=== PATIENT | female | born 1950 | race Hispanic/Latino ===

== ENCOUNTER 2018-11-15 23:05 | Emergency (ER) | payer SELFPAY ==
[2018-11-16 00:29] LABS: Absolute Lymphocytes (CBC) 1.8 K/uL (0.7-4.9); Basophils % 0.5 % (0-1.3); Hematocrit 35.5 % (36.0-45.0); Lymphocytes % 24.2 % (15.3-44.8); MPV 11.2 fL (7.6-11.3); RBC Red Blood Cell Count 3.83 M/uL (3.86-4.86)
[2018-11-16 00:30] LABS: Protime INR 1.14
[2018-11-16 00:42] LABS: ALT/SGPT 23 U/L (12-78); AST/SGOT 21 U/L (15-37); Albumin 3.1 g/dL (3.4-5.0); Alkaline Phosphatase 71 U/L (45-117); BUN Blood Urea Nitrogen 36 mg/dL (7-18); Bicarbonate 21 mmol/L (21-32); Bilirubin Direct < 0.1 mg/dL (0-0.2); Bilirubin Total 0.5 mg/dL (0.2-1.0); Glucose Level 89 mg/dL (74-106); Magnesium 1.7 mg/dL (1.8-2.4); NT PRO-BNP 151 pg/mL (<125); Potassium 3.9 mmol/L (3.5-5.1); Protein, Total 6.5 g/dL (6.4-8.2); Sodium Level 138 mmol/L (136-145); Troponin (Emerg Dept Use Only) < 0.02 ng/mL (0.0-0.045)
--- NOTE | 2018-11-16 03:25 | ER ---
Nurse's Notes [facility] Name: Mell Leo Age: 68 yrs Sex: Female : 1950 Arrival Date: 11/15/2018 Time: 23:08 Bed 19 Private MD: Diagnosis: Chest pain, unspecified Presentation: 11/15 23:21 Presenting complaint: Patient states: she has been having chest pain all weekend but it bb is getting worse the pain is constant radiates to her back and currently is 7/10. Pt denies SOB, nausea, fever, or congestion. Transition of care: patient was not received from another setting of care. Onset of symptoms was November 13, 2018. Risk Assessment: Do you want to hurt yourself or someone else? Patient reports no desire to harm self or others. Initial Sepsis Screen: Does the patient meet any 2 criteria? No. Patient's initial sepsis screen is negative. Does the patient have a suspected source of infection? No. Patient's initial sepsis screen is negative. Care prior to arrival: None. 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 - Social history:: Smoking status: unknown. - Ebola Screening: : No symptoms or risks identified at this time. Screenin:13 Abuse screen: Denies threats or abuse. Denies injuries from another. Nutritional cc3 screening: No deficits noted. Tuberculosis screening: No symptoms or risk factors identified. Fall Risk Ambulatory Aid- None/Bed Rest/Nurse Assist (0 pts). Gait- Normal/Bed Rest/Wheelchair (0 pts) Mental Status- Oriented to own ability (0 pts). Assessment: 23:13 General: Appears in no apparent distress. uncomfortable, Behavior is calm, cooperative, cc3 appropriate for age. Pain: Complains of pain in left side of chest Pain radiates to back Pain currently is 7 out of 10 on a pain scale. Quality of pain is described as tightness Pain began since a few days ago. Neuro: Level of Consciousness is awake, alert, obeys commands, Oriented to person, place, time, situation, Appropriate for age. Cardiovascular: Reports chest pain, since a few days ago Heart tones S1 S2 present Capillary refill < 3 seconds in bilateral fingers Patient's skin is warm and dry. Rhythm is sinus rhythm. Respiratory: Airway is patent Respiratory effort is even, unlabored, Respiratory pattern is regular, symmetrical. GI: Abdomen is round non-distended, Bowel sounds present X 4 quads. : No signs and/or symptoms were reported regarding the genitourinary system. EENT: No signs and/or symptoms were reported regarding the EENT system. Derm: Skin is intact, is healthy with good turgor, Skin is pink, warm \T\ dry. normal, Skin temperature is warm. Musculoskeletal: Circulation, motion, and sensation intact. Range of motion: intact in all extremities, Swelling present in right ankle and left ankle. 11/16 00:25 Reassessment: Patient appears in no apparent distress at this time. Patient and/or cc3 family updated on plan of care and expected duration. Pain level reassessed. Patient is alert, oriented x 3, equal unlabored respirations, skin warm/dry/pink. 01:18 Reassessment: Patient appears in no apparent distress at this time. Patient and/or cc3 family updated on plan of care and expected duration. Pain level reassessed. Patient is alert, oriented x 3, equal unlabored respirations, skin warm/dry/pink. 02:15 Reassessment: Patient appears in no apparent distress at this time. Patient and/or cc3 family updated on plan of care and expected duration. Pain level reassessed. Patient is alert, oriented x 3, equal unlabored respirations, skin warm/dry/pink. Repeat Troponin taken and sent to laboratory. 03:45 Reassessment: Patient appears in no apparent distress at this time. Patient and/or cc3 family updated on plan of care and expected duration. Pain level reassessed. Patient is alert, oriented x 3, equal unlabored respirations, skin warm/dry/pink. Dr. Torres discharged the patient home, no prescription given. IV cannula removed and patient left ER vitally stable by wheelchair escorted by me and the patient's son. No valuables left in the patient's room. Patient denies pain at this time. Patient states feeling better. Patient states symptoms have improved. Vital Signs: 11/15 23:27 BP 163 / 79; Pulse 90; Resp 16 S; Temp 98.2(O); Pulse Ox 98% on R/A; Weight 92.08 kg bb (R); Height 5 ft. 5 in. (165.10 cm) (R); Pain 7/10; 11/16 00:15 BP 119 / 56; Pulse 86; Resp 20 S; Pulse Ox 99% on R/A; cc3 01:49 BP 131 / 57; Pulse 85; Resp 18 S; Pulse Ox 99% on R/A; cc3 02:40 BP 111 / 59; Pulse 83; Resp 18 S; Pulse Ox 99% on R/A; cc3 03:45 BP 101 / 56; Pulse 85; Resp 17 S; Pulse Ox 99% on R/A; Pain 0/10; cc3 11/15 23:27 Body Mass Index 33.78 (92.08 kg, 165.10 cm) bb ED Course: 11/15 23:08 Patient arrived in ED. cf2 23:13 Raysa Hernández is Primary Nurse. cc3 23:13 Patient has correct armband on for positive identification. Placed in gown. Call light cc3 in reach. Side rails up X 1. monitoring and evaluation advisor on. Pulse ox on. NIBP on. 23:13 Patient maintains SpO2 saturation greater than 95% on room air. cc3 23:16 Richard Torres MD is Attending Physician. gs 23:24 Triage completed. bb 23:27 Arm band placed on Patient placed in an exam room, on a stretcher, on groundwater monitoring technician, bb on pulse oximetry. EKG completed in triage. Results shown to . 23:50 Inserted saline lock: 20 gauge in right antecubital area, using aseptic technique. cc3 Blood collected. 11/16 00:16 XRAY Chest (1 view) In Process Unspecified. EDMS 03:22 Leo Jacobs MD is Referral Physician. gs 03:45 No provider procedures requiring assistance completed. IV discontinued, intact, cc3 bleeding controlled, No redness/swelling at site. Pressure dressing applied. Administered Medications: No medications were administered Outcome: 03:24 Discharge ordered by . naye 03:45 Discharged to home via wheelchair, with family. cc3 03:45 Condition: stable 03:45 Discharge instructions given to patient, family, Instructed on discharge instructions, follow up and referral plans. Demonstrated understanding of instructions, follow-up care. 04:10 Patient left the ED. cc3 Signatures: Dispatcher [employer] EDMS Alison Smith RN RN Richard Aviles MD MD Raysa Hernández cc3 Rip Victoria cf2 Corrections: (The following items were deleted from the chart) 04:03 11/15 23:13 Derm: Skin is intact, is healthy with good turgor, Skin is pink, warm \T\ cc3 dry. normal, Skin temperature is warm cc3 11/16 04:03 11/15 23:13 Musculoskeletal: Circulation, motion, and sensation intact. Range of cc3 motion: intact in all extremities, cc3
--- NOTE | 2018-11-16 03:25 | EDPHYS ---
Physician Documentation [facility] Name: Mell Leo Age: 68 yrs Sex: Female : 1950 Arrival Date: 11/15/2018 Time: 23:08 Bed 19 Private MD: ED Physician Richard Torres HPI: 11/16 03:19 This 68 yrs old Female presents to ER via Ambulatory with complaints of Chest gs Pain > 30 y/o, Chest Tightness. 03:19 The patient or guardian reports chest pain that is located primarily in the anterior gs chest wall. Onset: 4 day(s) ago. The pain does not radiate. Associated signs and symptoms: Pertinent negatives: abdominal pain, diaphoresis. The chest pain is described as a heaviness. Duration: The patient or guardian reports a single episode, that is still ongoing, and unchanged. Modifying factors: The symptoms are alleviated by nothing. the symptoms are aggravated by nothing. Severity of pain: At its worst the pain was moderate in the emergency department the pain is unchanged. The patient has experienced similar episodes in the past, a few times. 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 - Social history:: Smoking status: unknown. - Ebola Screening: : No symptoms or risks identified at this time. ROS: 11/16 03:19 All other systems are negative. gs Exam: 03:19 Head/Face: Normocephalic, atraumatic. Eyes: Pupils equal round and reactive to light, gs extra-ocular motions intact. Lids and lashes normal. Conjunctiva and sclera are non-icteric and not injected. Cornea within normal limits. Periorbital areas with no swelling, redness, or edema. ENT: Nares patent. No nasal discharge, no septal abnormalities noted. Tympanic membranes are normal and external auditory canals are clear. Oropharynx with no redness, swelling, or masses, exudates, or evidence of obstruction, uvula midline. Mucous membranes moist. Neck: Trachea midline, no thyromegaly or masses palpated, and no cervical lymphadenopathy. Supple, full range of motion without nuchal rigidity, or vertebral point tenderness. No Meningismus. Chest/axilla: Normal chest wall appearance and motion. Nontender with no deformity. No lesions are appreciated. Cardiovascular: Regular rate and rhythm with a normal S1 and S2. No gallops, murmurs, or rubs. Normal PMI, no JVD. No pulse deficits. Respiratory: Lungs have equal breath sounds bilaterally, clear to auscultation and percussion. No rales, rhonchi or wheezes noted. No increased work of breathing, no retractions or nasal flaring. Abdomen/GI: Soft, non-tender, with normal bowel sounds. No distension or tympany. No guarding or rebound. No evidence of tenderness throughout. Back: No spinal tenderness. No costovertebral tenderness. Full range of motion. Skin: Warm, dry with normal turgor. Normal color with no rashes, no lesions, and no evidence of cellulitis. Neuro: Awake and alert, GCS 15, oriented to person, place, time, and situation. Cranial nerves II-XII grossly intact. Motor strength 5/5 in all extremities. Sensory grossly intact. Cerebellar exam normal. Normal gait. 03:19 Constitutional: The patient appears alert, awake. 03:19 ECG was reviewed by the Attending Physician. 03:19 Musculoskeletal/extremity: Circulation is intact in all extremities. Edema, 2+ to the left ankle and right ankle is noted, Sensation intact. Vital Signs: 11/15 23:27 BP 163 / 79; Pulse 90; Resp 16 S; Temp 98.2(O); Pulse Ox 98% on R/A; Weight 92.08 kg bb (R); Height 5 ft. 5 in. (165.10 cm) (R); Pain 7/10; 11/16 00:15 BP 119 / 56; Pulse 86; Resp 20 S; Pulse Ox 99% on R/A; cc3 01:49 BP 131 / 57; Pulse 85; Resp 18 S; Pulse Ox 99% on R/A; cc3 02:40 BP 111 / 59; Pulse 83; Resp 18 S; Pulse Ox 99% on R/A; cc3 03:45 BP 101 / 56; Pulse 85; Resp 17 S; Pulse Ox 99% on R/A; Pain 0/10; cc3 11/15 23:27 Body Mass Index 33.78 (92.08 kg, 165.10 cm) bb MDM: 11/15 23:42 Patient medically screened. 11/16 03:19 Differential diagnosis: acute myocardial infarction, anxiety, chest wall pain. Data reviewed: vital signs, nurses notes, old medical records, lab test result(s), EKG, radiologic studies, and as a result, I will discharge patient. Counseling: I had a detailed discussion with the patient and/or guardian regarding: the historical points, exam findings, and any diagnostic results supporting the discharge/admit diagnosis, the need for outpatient follow up. 11/15 23:42 Order name: Basic Metabolic Panel 11/15 23:42 Order name: CBC with Diff; Complete Time: 02:03 11/15 23:42 Order name: LFT's 11/15 23:42 Order name: Magnesium; Complete Time: 02:03 11/15 23:42 Order name: NT PRO-BNP; Complete Time: 02:03 11/15 23:42 Order name: PT-INR; Complete Time: 02:03 11/15 23:42 Order name: Troponin (emerg Dept Use Only); Complete Time: 02:03 11/15 23:42 Order name: XRAY Chest (1 view) 11/15 23:42 Order name: EKG; Complete Time: 23:42 11/15 23:42 Order name: Cardiac monitoring; Complete Time: 23:55 11/15 23:42 Order name: EKG - Nurse/Tech; Complete Time: 23:55 11/15 23:42 Order name: Basic Metabolic Panel; Complete Time: 02:03 EDID 11/15 23:42 Order name: Liver (Hepatic) Function; Complete Time: 02:03 EDID 11/16 02:13 Order name: Troponin (emerg Dept Use Only); Complete Time: 03:19 11/15 23:42 Order name: IV Saline Lock; Complete Time: 00:04 11/15 23:42 Order name: Labs collected and sent; Complete Time: 00:04 11/15 23:42 Order name: O2 Per Protocol; Complete Time: 23:55 11/15 23:42 Order name: O2 Sat Monitoring; Complete Time: 23:55 gs EC:19 Rate is 90 beats/min. Rhythm is regular. NH interval is normal. QRS interval is normal. gs T waves are Normal. No ST changes noted. Clinical impression: Normal ECG. Interpreted by me. Administered Medications: No medications were administered Disposition: 11/16/18 03:24 Discharged to Home. Impression: Chest pain, unspecified. - Condition is Stable. - Discharge Instructions: Nonspecific Chest Pain. - Medication Reconciliation Form, Thank You Letter, Antibiotic Education, Prescription Opioid Use form. - Follow up: Leo Jacobs MD; When: 2 - 3 days; Reason: Re-evaluation by your physician. Signatures: Dispatcher [employer] Alison Plaza RN RN Richard Torres MD MD Raysa Hernández cc3 Corrections: (The following items were deleted from the chart) 04:10 03:24 11/16/2018 03:24 Discharged to Home. Impression: Chest pain, unspecified. cc3 Condition is Stable. Forms are Medication Reconciliation Form, Thank You Letter, Antibiotic Education, Prescription Opioid Use. Follow up: Leo Jacobs; When: 2 - 3 days; Reason: Re-evaluation by your physician.
[2018-11-16 04:24] VITALS: TEMP 98.2
[2018-11-16 04:25] VITALS: O2SAT 99
[2018-11-16 04:37] VITALS: BP 101/56
--- NOTE | 2018-11-16 06:30 | RAD REPORT ---
EXAM DESCRIPTION: RAD - Chest Single View - 11/16/2018 12:13 am CLINICAL HISTORY: CHEST PAIN Chest pain. COMPARISON: CHEST SINGLE VIEW dated 11/13/2012; CHEST SINGLE VIEW dated 02/04/2012 FINDINGS: Portable technique limits examination quality. The lungs are mildly emphysematous but grossly clear. The heart is normal in size. No displaced fract ures. IMPRESSION: No acute intrathoracic process suspected.
--- NOTE | 2018-11-16 12:29 | EKG ---
Test Date: 2018-11-15 Test Time: 23:16:33 Count Team Clerk: NEHAL MEASUREMENT RESULTS: Intervals: Rate: 90 WV: 146 QRSD: 78 QT: 374 QTc: 457 [place]: P: 32 WV: 146 QRS: 42 T: 46 INTERPRETIVE STATEMENTS: Normal sinus rhythm Normal ECG Compared to ECG 11/14/2012 00:41:32 No significant changes Electronically Signed On 11-16-18 12:27:02 CDT by Leo Jacobs
== END 2018-11-16 04:10 | disposition home or self-care (01) ==
LOC: ER 23:05
DX: R07.9 Chest pain, unspecified (principal); I10 Essential (primary) hypertension; I25.10 Atherosclerotic heart disease of native coronary artery without angina pectoris
CPT/HCPCS: 36415; 71045; 80048; 80076; 83735; 83880; 84484; 85025; 85610; 93005; 99285

== ENCOUNTER 2020-09-24 01:49 | Inpatient (IN) | payer SELFPAY ==
[2020-09-24] MEDS ORDERED: METHYLPREDNISOLONE 40 MG INJ ONE ×2 (04:48→19:09)
[2020-09-24 05:38] LABS: Absolute Lymphocytes (CBC) 1.5 K/uL (0.7-4.9); Basophils % 0.2 % (0-1.3); Hematocrit 43.2 % (36.0-45.0); Lymphocytes % 16.1 % (15.3-44.8); MPV 9.6 fL (7.6-11.3); RBC Red Blood Cell Count 4.72 M/uL (3.86-4.86)
[2020-09-24 05:50] LABS: Protime INR 1.22
[2020-09-24 06:10] LABS: ALT/SGPT 14 U/L (12-78); AST/SGOT 34 U/L (15-37); Alkaline Phosphatase 55 U/L (45-117); BUN Blood Urea Nitrogen 55 mg/dL (7-18); Bicarbonate 24 mmol/L (21-32); Bilirubin Direct 0.2 mg/dL (0-0.2); Bilirubin Total 0.4 mg/dL (0.2-1.0); Glucose Level 97 mg/dL (74-106); Magnesium 2.4 mg/dL (1.8-2.4); NT PRO-BNP 227 pg/mL (<125); Potassium 3.9 mmol/L (3.5-5.1); Protein, Total 7.2 g/dL (6.4-8.2); Sodium Level 152 mmol/L (136-145); Troponin (Emerg Dept Use Only) < 0.02 ng/mL (0.0-0.045)
--- NOTE | 2020-09-24 06:25 | ER ---
Nurse's Notes [facility] Name: Mell Leo Age: 70 yrs Sex: Female : 1950 Arrival Date: 09/24/2020 Time: 02:04 Bed 14 Private MD: Diagnosis: COVID Pneumonia, Hypoxia;Hypernatremia Presentation: 09/24 02:19 Chief complaint: EMS states: Called for patient with low O2, EMS reports 81% on RA at lp1 home; patient diagnosed with COVID 1 week ago; patient is mainly macedonian speaking; Placed on NRB by EMS, 100% O2. Coronavirus screen: Client reports previous positive COVID test result. Ebola Screen: No symptoms or risks identified at this time. Risk Assessment: Do you want to hurt yourself or someone else? Patient reports no desire to harm self or others. Onset of symptoms was September 24, 2020. 02:19 Method Of Arrival: EMS: [facility] lp1 02:19 Acuity: ELIAS 3 lp1 02:19 Initial Sepsis Screen: Does the patient meet any 2 criteria? RR > 20 per min. Does the lp1 patient have a suspected source of infection? Yes: Other: COVID. Historical: - Allergies: 02:21 No Known Allergies; lp1 - Home Meds: 02:21 chloroquine Oral [Active]; Filarin (immunemodulator) [Active]; lisinopril 10 mg Oral lp1 tab 1 tab once daily [Active]; - PMHx: 02:21 Arthritis; CAD; Hypertension; lp1 - Immunization history:: Adult Immunizations up to date. - Social history:: Smoking status: unknown. Screenin:22 Abuse screen: Denies threats or abuse. Denies injuries from another. Nutritional lp1 screening: No deficits noted. Tuberculosis screening: No symptoms or risk factors identified. Fall Risk Total Pelayo Fall Scale indicates High Risk Score (45 or more points). Fall prevention measures have been instituted. Side Rails Up X 2 Frequent Obs/Assessments Occuring. Assessment: 03:00 General: Appears ill, Behavior is quiet. Pain: Unable to use pain scale. FLACC scale lp1 score is 0 out of 10. Neuro: Level of Consciousness is awake, Oriented to person, place. Cardiovascular: Patient's skin is warm and dry. Respiratory: Reports shortness of breath Airway is patent Respiratory effort is even, shallow, Respiratory pattern is regular, Breath sounds are diminished in left posterior lower lobe, right posterior middle lobe and right posterior lower lobe the patient has moderate shortness of breath. GI: Abdomen is round. : No signs and/or symptoms were reported regarding the genitourinary system. EENT: No signs and/or symptoms were reported regarding the EENT system. Derm: Wound noted Wound is skin breakdown noted to buttocks, left upper thigh area, stage 1. Musculoskeletal: Range of motion: intact in all extremities. 04:10 Reassessment: Assisted patient onto bedpan, no void noted. lp1 04:20 Reassessment: Patient repositioned onto left side, appears in no discomfort; eyes lp1 closed, respirations even, shallow. Vital Signs: 02:19 BP 117 / 73; Pulse 97; Resp 22; Temp 97.8(O); Pulse Ox 96% on R/A; Weight 99.79 kg; lp1 02:50 Pulse Ox 75% on R/A; lp1 03:00 Pulse Ox 94% on 5 lpm NC; lp1 03:30 BP 116 / 99; Pulse 100; Resp 26; Pulse Ox 96% on 5 lpm NC; lp1 04:30 BP 146 / 85; Pulse 88; Resp 21; Pulse Ox 100% on 5 lpm NC; lp1 ED Course: 02:04 Patient arrived in ED. mw2 02:04 Taco Cavazos MD is Attending Physician. mh7 02:19 Michela Holland, RN is Primary Nurse. lp1 02:21 Triage completed. lp1 02:21 Arm band placed on. lp1 02:22 Patient has correct armband on for positive identification. Bed in low position. Call lp1 light in reach. Side rails up X2. shelter monitor on. Pulse ox on. NIBP on. 02:50 Inserted saline lock: 20 gauge in right antecubital area, using aseptic technique. lp1 Blood collected. 03:34 XRAY Chest (1 view) In Process Unspecified. EDMS 06:23 Munir Anthony DO is Hospitalizing Provider. mh7 07:14 No provider procedures requiring assistance completed. Patient admitted, IV remains in lp1 place. 11:08 Door closed. Warm blanket given. Pillow given. Turned to left side. Repositioned mh5 patient. Cleaned of incontinence. Linen changed. Administered Medications: 04:37 Drug: SOLU-Medrol (methylPrednisoLONE) 80 mg Route: IVP; Site: right antecubital; lp1 06:00 Follow up: Response: No adverse reaction lp1 Outcome: 06:25 Decision to Hospitalize by Provider. 7 07:14 Admitted to ER Hold. Please see [facility] for further documentation. 1 07:14 Condition: stable 07:14 Instructed on the need for admit. 22:54 Patient left the ED. ld1 Signatures: Dispatcher [employer] EDMS Michela Holland, RN RN lp1 Diana Greenwood 5 Carlos Eduardo Ch 2 Taco Cavazos MD MD 7 Ines Bradford, PAWEL RN ld1
--- NOTE | 2020-09-24 06:25 | EDPHYS ---
Physician Documentation [facility] Name: Mell Leo Age: 70 yrs Sex: Female : 1950 Arrival Date: 09/24/2020 Time: 02:04 Bed 14 Private MD: ED Physician Taco Cavazos HPI: 09/24 02:10 This 70 yrs old Female presents to ER via Unassigned with complaints of mh7 Shortness of breath. 02:10 The patient has shortness of breath at rest. Onset: The symptoms/episode began/occurred mh7 last night. Duration: The symptoms are continuous, and are unchanged since they started. The patient's shortness of breath is aggravated by coughing, is alleviated by sitting up, application of supplemental oxygen. Associated signs and symptoms: Pertinent positives: non-productive cough, Pertinent negatives: chest pain, productive cough, diaphoresis, dizziness, fever, hemoptysis, loss of consciousness, nausea, numbness in extremities, visual changes, vomiting. Severity of symptoms: At their worst the symptoms were moderate today, in the emergency department the symptoms have improved moderately. Patient recently tested positive for Covid. Also reported there had family members who tested positive for Covid.. Historical: - Allergies: 02:21 No Known Allergies; lp1 - Home Meds: 02:21 chloroquine Oral [Active]; Filarin (immunemodulator) [Active]; lisinopril 10 mg Oral lp1 tab 1 tab once daily [Active]; - PMHx: 02:21 Arthritis; CAD; Hypertension; lp1 - Immunization history:: Adult Immunizations up to date. - Social history:: Smoking status: unknown. ROS: 02:10 Constitutional: Negative for fever, chills, and weight loss, Eyes: Negative for injury, mh7 pain, redness, and discharge, ENT: Negative for injury, pain, and discharge, Neck: Negative for injury, pain, and swelling, Cardiovascular: Negative for chest pain, palpitations, and edema, Abdomen/GI: Negative for abdominal pain, nausea, vomiting, diarrhea, and constipation, Back: Negative for injury and pain, : Negative for injury, bleeding, discharge, and swelling, MS/Extremity: Negative for injury and deformity, Skin: Negative for injury, rash, and discoloration, Neuro: Negative for headache, weakness, numbness, tingling, and seizure, Psych: Negative for depression, anxiety, suicide ideation, homicidal ideation, and hallucinations, Allergy/Immunology: Negative for hives, rash, and allergies, Endocrine: Negative for neck swelling, polydipsia, polyuria, polyphagia, and marked weight changes. Exam: 02:10 Head/Face: Normocephalic, atraumatic. Eyes: Pupils equal round and reactive to light, mh7 extra-ocular motions intact. Lids and lashes normal. Conjunctiva and sclera are non-icteric and not injected. Cornea within normal limits. Periorbital areas with no swelling, redness, or edema. Neck: Trachea midline, no thyromegaly or masses palpated, and no cervical lymphadenopathy. Supple, full range of motion without nuchal rigidity, or vertebral point tenderness. No Meningismus. Chest/axilla: Normal chest wall appearance and motion. Nontender with no deformity. No lesions are appreciated. Abdomen/GI: Soft, non-tender, with normal bowel sounds. No distension or tympany. No guarding or rebound. No evidence of tenderness throughout. Back: No spinal tenderness. No costovertebral tenderness. Full range of motion. Skin: Warm, dry with normal turgor. Normal color with no rashes, no lesions, and no evidence of cellulitis. MS/ Extremity: Pulses equal, no cyanosis. Neurovascular intact. Full, normal range of motion. Neuro: Awake and alert, GCS 15, oriented to person, place, time, and situation. Cranial nerves II-XII grossly intact. Motor strength 5/5 in all extremities. Sensory grossly intact. Cerebellar exam normal. Normal gait. Psych: Awake, alert, with orientation to person, place and time. Behavior, mood, and affect are within normal limits. 02:10 Constitutional: The patient appears alert, awake, in obvious distress, mildly distressed. Vital Signs: 02:19 BP 117 / 73; Pulse 97; Resp 22; Temp 97.8(O); Pulse Ox 96% on R/A; Weight 99.79 kg; lp1 02:50 Pulse Ox 75% on R/A; lp1 03:00 Pulse Ox 94% on 5 lpm NC; lp1 03:30 BP 116 / 99; Pulse 100; Resp 26; Pulse Ox 96% on 5 lpm NC; lp1 04:30 BP 146 / 85; Pulse 88; Resp 21; Pulse Ox 100% on 5 lpm NC; lp1 MDM: 06:22 Differential diagnosis: Anemia Anxiety Reaction asthma, Bronchitis CHF exacerbation, 7 Chronic Obstructive Pulmonary Disease Myocardial Infarction pneumonia, Pneumothorax Psychogenic pulmonary edema. Data reviewed: vital signs, nurses notes, old medical records, lab test result(s), cardiac enzymes, CBC, electrolytes, EKG, radiologic studies, plain films. Data interpreted: Pulse oximetry: on 4L(s) per nasal canula, is 99 %. Interpretation: acceptable. Counseling: I had a detailed discussion with the patient and/or guardian regarding: the historical points, exam findings, and any diagnostic results supporting the discharge/admit diagnosis, the presence of at least one elevated blood pressure reading (>120/80) during this emergency department visit, lab results, radiology results, the need for further work-up and treatment in the hospital. Response to treatment: the patient's symptoms have mildly improved after treatment. 06:[address] [facility] 09/24 02:05 Order name: Basic Metabolic Panel [facility] 09/24 02:05 Order name: CBC with Diff [facility] 09/24 02:05 Order name: LFT's [facility] 09/24 02:05 Order name: Magnesium [facility] 09/24 02:05 Order name: NT PRO-BNP [facility] 09/24 02:05 Order name: PT-INR [facility] 09/24 02:05 Order name: Troponin (emerg Dept Use Only) [facility] 09/24 02:05 Order name: Blood Culture Adult (2) [facility] 09/24 02:05 Order name: Procalcitonin [facility] 09/24 02:05 Order name: Lactate; Complete Time: 05:57 [facility] 09/24 02:06 Order name: Basic Metabolic Panel; Complete Time: 06:18 EDMS 09/24 02:06 Order name: CBC with Automated Diff; Complete Time: 05:57 [facility] 09/24 02:06 Order name: Liver (Hepatic) Function; Complete Time: 06:18 EDMS 09/24 02:06 Order name: Magnesium; Complete Time: 06:18 EDMS 09/24 02:05 Order name: XRAY Chest (1 view) [facility] 09/24 02:05 Order name: EKG; Complete Time: 02:06 [facility] 09/24 02:05 Order name: Cardiac monitoring; Complete Time: 03:06 [facility] 09/24 02:05 Order name: EKG - Nurse/Tech; Complete Time: 04:21 [facility] 09/24 02:06 Order name: NT PRO-BNP; Complete Time: 06:18 [facility] 09/24 02:06 Order name: Protime (+INR); Complete Time: 06:05 [facility] 09/24 02:06 Order name: Troponin (Emerg Dept Use Only); Complete Time: 06:18 [facility] 09/24 06:22 Order name: Ferritin [facility] 09/24 06:22 Order name: CRP [facility] 09/24 09:14 Order name: CORONAVIRUS [facility] 09/24 10:10 Order name: SARS-COV-2 RT PCR [facility] 09/24 15:19 Order name: Basic Metabolic Panel [facility] 09/24 15:19 Order name: Magnesium [facility] 09/24 20:25 Order name: Basic Metabolic Panel [facility] 09/24 02:05 Order name: IV Saline Lock; Complete Time: 03:06 [facility] 09/24 02:05 Order name: Labs collected and sent; Complete Time: 03:06 [facility] 09/24 02:05 Order name: O2 Per Protocol; Complete Time: 03:06 [facility] 09/24 02:05 Order name: O2 Sat Monitoring; Complete Time: 03:06 [facility] Administered Medications: 04:37 Drug: SOLU-Medrol (methylPrednisoLONE) 80 mg Route: IVP; Site: right antecubital; lp1 06:00 Follow up: Response: No adverse reaction lp1 Disposition Summary: 09/24/20 06:25 Hospitalization Ordered Hospitalization Status: Inpatient Admission [facility] Provider: Munir Anthony [facility] Condition: Stable [facility] Problem: new [facility] Symptoms: have improved [facility] Bed/Room Type: Standard [facility] Location: Telemetry/MedSurg (Inpatient)(09/24/20 21:21) Room Assignment: 430(09/24/20 21:21) Diagnosis - COVID Pneumonia, Hypoxia [facility] - Hypernatremia [facility] Forms: - Medication Reconciliation Form [facility] - SBAR form [facility] Signatures: Dispatcher [employer] [facility] Meg Marie RN RN mw Michela Holland RN RN 1 Taco Cavazos MD MD [facility] Corrections: (The following items were deleted from the chart) 06:25 Telemetry/MedSurg (Inpatient) [facility] mw 06:25 [facility] mw 07: General acute hospital 07: [facility]
--- NOTE | 2020-09-24 07:16 | RAD REPORT ---
EXAM DESCRIPTION: RAD - Chest Single View - 09/24/2020 3:34 am CLINICAL HISTORY: SOB COMPARISON: Chest Single View dated 11/16/2018; CHEST SINGLE VIEW dated 11/13/2012; CHEST SINGLE VIEW dated 02/04/2012 FINDINGS: Moderate patchy airspace disease is present bilaterally. Atherosclerosis. The heart size i s within normal limits.No acute osseous abnormality. No significant pleural effusions or pneumothorax . IMPRESSION: Moderate bilateral airspace disease concerning for multifocal pneumonia.
[2020-09-24] MEDS ORDERED: ONDANSETRON 4 MG/2 ML VIAL IV PRN (07:31)
[2020-09-24] MEDS ORDERED: GUAIFENESIN/CODEINE 5ML UCUP PO PRN (07:31)
[2020-09-24] MEDS ORDERED: ACETAMINOPHEN 500 MG TAB PO PRN (07:31)
[2020-09-24] MEDS ORDERED: ALBUTEROL INHALER 60 PUFF/8 GM IH ONE (07:42)
[2020-09-24] MEDS ORDERED: D5W 1,000 ML IV SCH ×2 (08:00→22:00)
[2020-09-24 08:04] LABS: C-Reactive Protein 99.9 mg/L (<3.00); Ferritin 715.4 ng/mL (8-388)
[2020-09-24] MEDS: METHYLPREDNISOLONE 40 MG INJ IV SCH ×2 (09:00→17:00)
[2020-09-24] MEDS: VITAMIN D 1000 UNIT TAB PO SCH (09:00)
[2020-09-24] MEDS: ZINC SULFATE 220 MG CAP PO SCH (09:00)
[2020-09-24] MEDS: ENOXAPARIN 40 MG/0.4 ML SQ SCH (09:00)
[2020-09-24] MEDS ORDERED: THIAMINE HCL 100 MG TABLET PO SCH (09:00)
[2020-09-24] MEDS: ASCORBIC ACID 500 MG TABLET PO SCH ×4 (09:00→21:00)
[2020-09-24] MEDS: FAMOTIDINE 20 MG TAB PO SCH ×2 (09:00→21:00)
--- NOTE | 2020-09-24 09:42 | P.HP ---
Certification for Inpatient Patient admitted to: Inpatient With expected LOS: >2 Midnights Patient will require the following post-hospital care: None Practitioner: I am a practitioner with admitting privileges, knowledge of patient current condition, hospital course, and medical plan of care. Services: Services provided to patient in accordance with Admission requirements found in Title 42 Section 412.3 of the Code of Federal Regulations Patient History Date of Service: 09/24/20 Primary Care Provider: Unknown Reason for admission: Shortness of breath History of Present Illness: 70-year-old female was brought in by EMS due to increasing shortness of breath. Patient is a poor historian. She is Latvian-speaking. Patient reports 2 children sick with Covid. She reports having symptoms of weakness, cough, shortness of breath over 3 weeks. She is unvaccinated for COVID-19. Patient was brought in by EMS due to worsening symptoms. In the ER patient was evaluated. Chest x-ray shows evidence of possible COVID- 19 pattern. Ferritin 715, CRP 99. Procalcitonin 0.49. White count 9.1, hemoglobin 14. Platelet count 348. Lactic acid normal. Sodium 152, potassium 3.9. Chloride 123. BUN of 55, creatinine 1.17 with a GFR 46. Glucose 97. Patient given IV steroids in the emergency room. Patient admitted for treatment. Allergies No Known Allergies Allergy (Verified 11/14/12 02:58) Home medications list reviewed: Yes Home Medications: Aspirin 81 mg PO DAILY #0 tab.chew 02/09/12 Pravastatin [Pravachol*] 40 mg PO DAILY #30 tab 02/09/12 Ibuprofen 400 mg PO 11/14/12 Naproxen [Naprosyn] 500 mg PO 11/14/12 Hydrocodone 7.5/APAP 325 [[place] 7.5/325 mg*] 1 tab PO Q4HP PRN #40 tab 11/19/12 Metoprolol Tartrate [Lopressor*] 25 mg PO BID #180 tab 11/19/12 - Past Medical/Surgical History Diabetic: No -: Hypertension -: Arthritis -: -: cardiac cath, heart stent Psychosocial/ Personal History: Patient lives at home with a son - Family History Family History: Reviewed- Non-Contributory - Social History Smoking Status: Never smoker Alcohol use: No CD- Drugs: No Caffeine use: Yes Place of Residence: Home Review of Systems General: Weakness, Malaise, As per HPI Eyes: Unremarkable ENT: Unremarkable Respiratory: Cough, Shortness of Breath, SOB with Excertion, As per HPI Gastrointestinal: Unremarkable Genitourinary: Unremarkable Musculoskeletal: Unremarkable Integumentary: As per HPI Neurological: Unremarkable Lymphatics: Unremarkable Physical Examination - Studies Laboratory Data (last 24 hrs) 09/24/20 05:15: PT 14.1 H, INR 1.22 09/24/20 05:15: WBC 9.10, Hgb 14.3, Hct 43.2, Plt Count 348 09/24/20 05:15: Sodium 152 H, Potassium 3.9, BUN 55 H, Creatinine 1.17, Glucose 97, Magnesium 2.4 D, Total Bilirubin 0.4, AST 34, ALT 14, Alkaline Phosphatase 55 Assessment and Plan - Plan COVID: Positive, unvaccinated Initial Chest x-ray: COMPARISON: Chest Single View dated 11/16/2018; CHEST SINGLE VIEW dated 11/13/2012; CHEST SINGLE VIEW dated 02/04/2012 FINDINGS: Moderate patchy airspace disease is present bilaterally. Atherosclerosis. The heart size is within normal limits.No acute osseous abnormality. No significant pleural effusions or pneumothorax. IMPRESSION: Moderate bilateral airspace disease concerning for multifocal pneumonia. Physical Exam: GENERAL: Patient alert, cooperative. Patient is Latvian-speaking. Patient does not appear to be well kept. VITAL SIGNS: Reviewed HEENT: Head is normocephalic and atraumatic. Extraocular muscles are intact. Pupils are equal, round, and reactive to light and accommodation. Mucous membranes noted NECK: Supple. No carotid bruits. No lymphadenopathy or thyromegaly. LUNGS: Decreased bilateral. Poor inspiration and expiration. Currently on 4 L per nasal cannula. HEART: Regular rate and rhythm, no appreciable gallops, rubs, murmurs or extra heart sounds ABDOMEN: Soft, nontender, and nondistended. Positive bowel sounds. No hepatosplenomegaly was noted. EXTREMITIES: Without any cyanosis, clubbing, rash, lesions or peripheral edema. NEUROLOGIC: Patient alert, cooperative. Good range of motion. SKIN: Normal color, turgor and temperature. Skin appears dry. Some breakdown of skin to the buttocks region. Impression: Dyspnea secondary to bilateral COVID-19 pneumonia with hypoxia Acute renal injury with hypernatremia suspect dehydration Plan: Dyspnea secondary to bilateral COVID-19 pneumonia with hypoxia: Patient will be admitted for further evaluation and treatment. Will continue with oxygen to maintain sats above 93%. Currently on 4 L per nasal cannula. Will continue with IV Solu-Medrol and vitamin supplementation. Pulmonology will be consulted. Await recommendation. Respiratory to help wean off oxygen. Order physical therapy to help ambulate. Will order wound care to further evaluate her skin as there may be some breakdown to the buttocks region. Will provide DVT prophylaxisLovenox. Start aspirin 81 mg daily. Provide medication for cough. Encourage incentive spirometer, proning, ambulation. Will need more information from family. Anticipate improvement over the next 3 days.. Cute renal injury with hypernatremia suspect dehydration: Will start D5W. Encourage oral intake. Nephrology consulted to help assist. Code Status: Full Code DVT prophylaxis: Lovenox Advanced Care Planning-30 minutes: We will need to discuss with family about plan of care. Likely home at dis charge with oxygen. Discharge Plan: Home Plan to discharge in: 72 Hours - Advance Directives Does patient have a Living Will: No Does patient have a Durable POA for Healthcare: No - Code Status/Comfort Care Code Status Assessed: Yes (Patient is full code) Time Spent Managing Pts Care (In Minutes): 55
[2020-09-24] MEDS: THIAMINE 200 MG/2 ML INJ IVP SCH (10:24)
[2020-09-24] MEDS ORDERED: ZINC SULFATE 220 MG CAP ONE (10:43)
[2020-09-24] MEDS ORDERED: ASCORBIC ACID 500 MG TABLET ONE ×4 (10:43→21:36)
[2020-09-24] MEDS ORDERED: THIAMINE 200 MG/2 ML INJ ONE (10:43)
[2020-09-24] MEDS ORDERED: VITAMIN D 1000 UNIT TAB ONE (10:43)
[2020-09-24] MEDS ORDERED: D5W 1,000 ML IV ONE (10:44)
[2020-09-24] MEDS ORDERED: ENOXAPARIN 40 MG/0.4 ML SQ ONE (10:44)
[2020-09-24] MEDS ORDERED: FAMOTIDINE 20 MG TAB ONE ×2 (10:44→21:36)
[2020-09-24] MEDS ORDERED: METHYLPREDNISOLONE 125 MG INJ ONE (10:49)
[2020-09-24 12:12] VITALS: BMI 28.7
[2020-09-24 15:18] LABS: Magnesium 2.4 mg/dL (1.8-2.4); Potassium 3.8 mmol/L (3.5-5.1)
[2020-09-24] MEDS ORDERED: MECLIZINE HCL 12.5 MG TAB ONE (15:43)
[2020-09-24] MEDS ORDERED: D5 0.9 NS 1,000 ML IV ONE (19:10)
[2020-09-24] MEDS: NYSTATIN PWDR 100000 UNIT/GM TOP SCH (19:25)
[2020-09-24 20:25] LABS: Potassium 4.1 mmol/L (3.5-5.1)
--- NOTE | 2020-09-24 22:06 | P.CNS ---
Date of Consult: 09/24/20 Reason for Consult: COVID penumonia Primary Care Provider: Unknown Chief Complaint: Shortness of breath History of Present Illness: AGe 70 AW COVID penumonia/Sick 3 wks 1-year-old female was brought in by EMS due to increasing shortness of breath. Patient is a poor historian. She is Yi-speaking. Allergies No Known Allergies Allergy (Verified 11/14/12 02:58) Home Medications: Aspirin 81 mg PO DAILY #0 tab.chew 02/09/12 Pravastatin [Pravachol*] 40 mg PO DAILY #30 tab 02/09/12 Ibuprofen 400 mg PO 11/14/12 Naproxen [Naprosyn] 500 mg PO 11/14/12 Hydrocodone 7.5/APAP 325 [[place] 7.5/325 mg*] 1 tab PO Q4HP PRN #40 tab 11/19/12 Metoprolol Tartrate [Lopressor*] 25 mg PO BID #180 tab 11/19/12 - Past Medical/Surgical History Diabetic: No -: Hypertension -: Arthritis -: Arthritis -: "gallbladder issues" -: -: cardiac cath, heart stent Psychosocial/ Personal History: Patient lives at home with a son - Social History Smoking Status: Unknown if ever smoked Alcohol use: No CD- Drugs: No Caffeine use: Yes Place of Residence: Home Review of Systems General: Weakness Respiratory: Shortness of Breath Physical Examination Temp Pulse Resp BP Pulse Ox 98.3 F 96 H 20 100/79 92 09/24/20 20:00 09/24/20 20:00 09/24/20 20:00 09/24/20 20:00 09/24/20 20:00 General: Alert, Cooperative Laboratory Data (last 24 hrs) 09/24/20 05:15: PT 14.1 H, INR 1.22 09/24/20 05:15: WBC 9.10, Hgb 14.3, Hct 43.2, Plt Count 348 09/24/20 05:15: Sodium 152 H, Potassium 3.9, BUN 55 H, Creatinine 1.17, Glucose 97, Magnesium 2.4 D, Total Bilirubin 0.4, AST 34, ALT 14, Alkaline Phosphatase 55 - Problems (1) Pneumonia due to COVID-19 virus Current Visit: Yes Status: Acute Plan: Age 70 AW COVID pneumonia and hypernatrmia/on NC O2 will not qulaify for barcitinib/ labs and cxry rev
[2020-09-25] MEDS: D5 0.45 NS 1,000 ML IV SCH ×2 (00:06→12:34)
[2020-09-25] MEDS: METHYLPREDNISOLONE 40 MG INJ IV SCH ×3 (00:06→17:41)
--- NOTE | 2020-09-25 00:43 | CON ---
Date of Consultation: 09/24/2020 Chief Complaint: Acute on chronic kidney injury, prerenal azotemia associated with dehydration. The patient was found to have hypernatremia and elevated BUN and creatinine. History Of Present Illness: The patient is a 70-year-old woman. She was brought to emergency room [facility] of progressively worse dyspnea. The patient cannot provide review of systems. She is a poor historian. The patient although was having shortness of breath, cough, over last 3 weeks have family members sick with COVID. She is unvaccinated for COVID-19. She was brought to emergency room [facility] of worsening of respiratory symptoms. The patient has chest x-ray done, which was consistent with COVID-19 pneumonia. Ferritin was 750, CRP 99, procalcitonin 0.49. White count 9.1. Lactic acid wa s in within normal limits. Sodium level was 152, potassium 3.9, chloride 123, BUN 55, creatinine 1.1 7. The patient received IV steroids and was started on D5W and thiamine for volume control and hyper natremia treatment. Apparently, the patient was taking Naprosyn and ibuprofen at home. Along with o ther medication, she takes metoprolol for hypertension and pravastatin for hypercholesterolemia. Review of Systems: Unobtainable. Past Medical History: Hypertension, arthritis, hyperlipidemia, , cardiac catheterization, c oronary artery disease, deconditioning. Family History: No kidney disease in the family. Social History: Never smoker. Denies alcohol or recreation drugs. Physical Examination: General: The patient is awake and follows commands. She is lethargic, is complaining of weakness an d malaise. Eyes: Anicteric sclerae. EOMI. Ears, Nose, Mouth, and Throat: Oral mucosa moist. No pallor. Neck: Supple. No bruits. Lungs: Diminished breath sounds at bases. Few rhonchi. Heart: S1, S2. No pericardial friction rub. Abdomen: Soft, benign, nontender. No rebound. No guarding. Extremities: Slight edema in both ankles. Skin: Warm and dry. No skin rashes. Laboratory Data: PT 14.1, INR 1.22. WBC 9.1, hemoglobin 14.3, platelet count 348,000. Sodium 152, potassium 3.9, BUN 55, creatinine 1.17, glucose 97. Impression And Plan: 1.Acute kidney injury, likely there is element of prerenal azotemia, nonoliguric acute tubular necro sis associated with dehydration and manifested by hypernatremia. Continue IV fluids and monitor elec trolytes. Adjust fluids for adequate control of volume status and electrolyte abnormalities. 2.Diabetes mellitus with renal manifestation. The patient is not a candidate for metformin. 3.Acute kidney injury. Monitor urine output and fluid balance. Avoid nephrotoxic medication. The patient cannot take nonsteroidal anti-inflammatory medication. 4.Possible pneumonia. Further recommendation from primary team as far as COVID related complication . 5.Hypoalbuminemia. Plan is to check urine protein electrophoresis to rule out M spike. EB/MODL Voice ID: [id number] Report ID: [id number]
[2020-09-25 04:44] LABS: Absolute Lymphocytes (CBC) 0.8 K/uL (0.7-4.9); Basophils % 0.2 % (0-1.3); Lymphocytes % 9.4 % (15.3-44.8); RBC Red Blood Cell Count 4.17 M/uL (3.86-4.86)
[2020-09-25 05:14] LABS: Albumin 1.9 g/dL (3.4-5.0); Bilirubin Total 0.4 mg/dL (0.2-1.0); Magnesium 2.4 mg/dL (1.8-2.4); Phosphorus 3.4 mg/dL (2.5-4.9); Potassium 4.1 mmol/L (3.5-5.1); Protein, Total 6.6 g/dL (6.4-8.2); Thyroid Stimulating Hormone 0.324 uIU/mL (0.360-3.740)
[2020-09-25 05:26] LABS: Blood Morphology Comment NOT SEEN (NOT SEEN); Platelet Estimate ADEQ
--- NOTE | 2020-09-25 06:16 | P.PN ---
Subjective Date of Service: 09/25/20 Primary Care Provider: Unknown Chief Complaint: Shortness of breath Subjective: Improving, Other (Currently on 3 L/m) Physical Examination - Vital Signs Temperature: 97.9 F Blood Pressure: 140/70 Pulse: 90 Respirations: 16 Pulse Ox (%): 90 Assessment & Plan Discharge Plan: Home Plan to discharge in: 48 Hours Physician Review Additional Text: COVID: Positive, unvaccinated Initial Chest x-ray: COMPARISON: Chest Single View dated 11/16/2018; CHEST SINGLE VIEW dated 11/13/2012; CHEST SINGLE VIEW dated 02/04/2012 FINDINGS: Moderate patchy airspace disease is present bilaterally. Atherosclerosis. The heart size is within normal limits.No acute osseous abnormality. No significant pleural effusions or pneumothorax. IMPRESSION: Moderate bilateral airspace disease concerning for multifocal pneumonia. Renal US: COMPARISON: ABDOMINAL EXAM LIMITED dated 11/14/2012 FINDINGS: Both kidneys are normal in size, shape and echotexture. The right kidney measures 9.6 x 5.5 x 4.7 cm. No hydronephrosis, focal mass or perinephric fluid. The left kidney measures 9.6 x 4.5 x 4.5 cm. No hydronephrosis, focal mass or perinephric fluid. The urinary bladder is incompletely distended without gross abnormality seen. IMPRESSION: Unremarkable renal sonogram. Follow up CXR: COMPARISON: Chest Single View dated 09/24/2020; Chest Single View dated 11/16/2018; CHEST SINGLE VIEW dated 11/13/2012; CHEST SINGLE VIEW dated 02/04/2012 FINDINGS: Portable technique limits examination quality. Since 09/24/2020, mild worsening is seen in bilateral pulmonary opacities. The heart is normal in size. No displaced fractures.Aortic atherosclerosis. IMPRESSION: Mild worsening is seen in lung aeration since 09/24/2020. Physical Exam: GENERAL: Patient alert, cooperative. Patient is Sami-speaking. Patient does not appear to be well kept. VITAL SIGNS: Reviewed HEENT: Head is normocephalic and atraumatic. Extraocular muscles are intact. Pupils are equal, round, and reactive to light and accommodation. Mucous membranes noted NECK: Supple. No carotid bruits. No lymphadenopathy or thyromegaly. LUNGS: Better air movement bilateral. Currently on 3 L per nasal cannula. HEART: Regular rate and rhythm, no appreciable gallops, rubs, murmurs or extra heart sounds ABDOMEN: Soft, nontender, and nondistended. Positive bowel sounds. No hepatosplenomegaly was noted. EXTREMITIES: Without any cyanosis, clubbing, rash, lesions or peripheral edema. NEUROLOGIC: Patient alert, cooperative. Good range of motion. SKIN: Normal color, turgor and temperature. Skin appears dry. Some breakdown of skin to the buttocks region. Impression: Dyspnea secondary to bilateral COVID-19 pneumonia with hypoxia Acute renal injury with hypernatremia suspect dehydration likely with chronic renal disease stage 3 Rheumatoid arthritis on chronic steroids HTN UTI Hyperglycemia suspect underlying diabetes mellitus type 2 Plan: Dyspnea secondary to bilateral COVID-19 pneumonia with hypoxia: Patient improved since yesterday. Will continue with oxygen to maintain sats above 93%. Patient currently on 3 L per nasal cannula. Will continue with IV Solu-Medrol and vitamin supplementation. Pulmonology consulted, await recommendations. Respiratory to help wean off oxygen. Spoke with nephrology. Patient likely with underlying chronic renal disease. Continue with D5W. Physical therapy and Occupational Therapy ordered. Patient with underlying rheumatoid arthritis, hypertension. Possible underlying UTI. Will start Rocephin. Blood sugars elevated. Suspect diabetes. Will check A1c. DVT prophylaxis in place. Encourage incentive spirometer, proning, ambulation. Spoke with family concerning plan of care. Likely home at discharge Acute renal injury with hypernatremia suspect dehydration likely with chronic renal disease stage 3: Continue with D5W. Encourage oral intake. Nephrology consulted to help assist. Rheumatoid Arthritis on chronic steroids: Patient has been seen by a doctor in [place]. Patient is a resident of the [facility]. Will provide medication for pain. Patient may have been taking chronic steroids. HTN: Restart lisinopril. Will monitor and adjust appropriately. UTI: Will start Rocephin. Cultures obtained. Blood culture positive likely contaminant. Hyperglycemia suspect underlying diabetes mellitus type 2: Will check A1c. Will start diabetic diet. Accu-Cheks to be monitored. Sliding scale in place. Code Status: Full Code DVT prophylaxis: Lovenox Advanced Care Planning-30 minutes: Home at discharge Time Spent Managing Pts Care (In Minutes): 55
[2020-09-25 08:21] LABS: Urine Appearance CLOUDY (Clear); Urine Blood NEGATIVE (Negative); Urine Color YELLOW (Yellow); Urine Glucose NEGATIVE (Negative); Urine Protein NEGATIVE (Negative); Urine Urobilinogen 0.2 mg/dL (0.2-1.0); Urine pH 5.5 (5.0-7.0)
[2020-09-25 08:30] LABS: Urine Bacteria >50 /HPF (<20); Urine Bilirubin 1+ (Negative); Urine RBC <5 /HPF (NONE SEEN)
--- NOTE | 2020-09-25 08:58 | RAD REPORT ---
EXAM DESCRIPTION: RAD - Chest Single View - 09/25/2020 4:40 am CLINICAL HISTORY: Follow up COVID Chest pain. COMPARISON: Chest Single View dated 09/24/2020; Chest Single View dated 11/16/2018; CHEST SINGLE VIEW dated 11/13/2012; CHEST SINGLE VIEW dated 02/04/2012 FINDINGS: Portable technique limits examination quality. Since 09/24/2020, mild worsening is seen in bilateral pulmonary opacities. The heart is normal in siz e. No displaced fractures.Aortic atherosclerosis. IMPRESSION: Mild worsening is seen in lung aeration since 09/24/2020.
[2020-09-25] MEDS ORDERED: THIAMINE 200 MG/2 ML INJ IVP SCH (09:00)
--- NOTE | 2020-09-25 09:19 | RAD REPORT ---
EXAM DESCRIPTION: US - Renal Ultrasound-Complete - 09/25/2020 6:28 am CLINICAL HISTORY: [id number] [id number] COMPARISON: ABDOMINAL EXAM LIMITED dated 11/14/2012 FINDINGS: Both kidneys are normal in size, shape and echotexture. The right kidney measures 9.6 x 5.5 x 4.7 cm. No hydronephrosis, focal mass or perinephric fluid. The left kidney measures 9.6 x 4.5 x 4.5 cm. No hydronephrosis, focal mass or perinephric fluid. The urinary bladder is incompletely distended without gross abnormality seen. IMPRESSION: Unremarkable renal sonogram.
[2020-09-25] MEDS: FAMOTIDINE 20 MG TAB PO SCH ×2 (09:55→21:09)
[2020-09-25] MEDS: ASCORBIC ACID 500 MG TABLET PO SCH ×4 (09:55→21:09)
[2020-09-25] MEDS: ZINC SULFATE 220 MG CAP PO SCH (09:55)
[2020-09-25] MEDS: VITAMIN D 1000 UNIT TAB PO SCH (09:55)
[2020-09-25] MEDS: THIAMINE 200 MG/2 ML INJ IVP SCH (09:56)
[2020-09-25] MEDS: ENOXAPARIN 40 MG/0.4 ML SQ SCH (09:56)
--- NOTE | 2020-09-25 10:02 | P.PN ---
Subjective Date of Service: 09/25/20 Primary Care Provider: Unknown Chief Complaint: Shortness of breath Subjective: No new changes Physical Examination - Vital Signs Temperature: 97.9 F Blood Pressure: 164/78 Pulse: 79 Respirations: 20 Pulse Ox (%): 98 - Physical Exam General: Other (appears as her stated age) HEENT: Atraumatic, Normocephalic Neck: Supple, JVD not distended Respiratory: Normal air movement Cardiovascular: No rubs, No murmurs Gastrointestinal: Soft and benign Musculoskeletal: No clubbing Integumentary: No warmth Neurological: Normal tone Urinary: Other (no bladder distention) - Studies Microbiology Data (last 24 hrs): 09/24/20 02:56 Blood - Blood Gram Stain - Final Assessment And Plan - Plan 1. Acute kidney injury, likely there is element of prerenal azotemia, nonoliguric acute tubular necrosis associated with dehydration and manifested by hypernatremia. SCr also may be at her new baseline. serum creatinine at 1.2. Baseline serum creatinine 1.2 (CKD3) as of November 2018. Continue IV/po hydration. monitor renal panel. 2. Diabetes mellitus with renal manifestation. The patient is not a candidate for metformin. 3. Hypernatremia. Serum sodium today at 148. Weight 90.9 kg. Total body water 40.9 L. Free water deficit 2.3 L plus ongoing free water loss. currently giving D5 water via IV drip at 120 cc/hr 24 hours. 4. COVID pneumonia. Mngt per primary team. 5. DM, management per primary team.
[2020-09-25] MEDS: NYSTATIN PWDR 100000 UNIT/GM TOP SCH ×2 (12:34→21:00)
[2020-09-25] MEDS ORDERED: CEFTRIAXONE 1 GM/NS 50 ML 1 GM/50 ML BAG IV SCH (13:16)
[2020-09-25] MEDS ORDERED: GLUCAGON 1 MG/VIAL IM PRN (13:16)
[2020-09-25] MEDS ORDERED: D50W 25 GM/50 ML VIAL IV PRN (13:47)
[2020-09-25 14:11] LABS: C-Reactive Protein 39.7 mg/L (<3.00)
[2020-09-25] MEDS: CEFTRIAXONE/SWI 1gm 1 GM/10 ML SYR IV SCH (14:44)
[2020-09-25] MEDS: D5W 1,000 ML IV SCH (14:44)
[2020-09-25] MEDS: INSULIN -REGULAR HUMAN 50 UNIT/0.5 ML ML SQ SCH ×2 (16:30→21:00)
[2020-09-26] MEDS: D5W 1,000 ML IV SCH ×4 (00:24→17:53)
[2020-09-26] MEDS: METHYLPREDNISOLONE 40 MG INJ IV SCH ×3 (00:25→17:54)
[2020-09-26 04:40] LABS: Absolute Lymphocytes (CBC) 0.7 K/uL (0.7-4.9); Basophils % 0.5 % (0-1.3); Hematocrit 37.6 % (36.0-45.0); MPV 9.9 fL (7.6-11.3); RBC Red Blood Cell Count 4.02 M/uL (3.86-4.86)
[2020-09-26 05:15] LABS: Albumin 1.8 g/dL (3.4-5.0); Bilirubin Total 0.3 mg/dL (0.2-1.0); C-Reactive Protein 20.9 mg/L (<3.00); Ferritin 491.1 ng/mL (8-388); Magnesium 2.2 mg/dL (1.8-2.4); Phosphorus 3.1 mg/dL (2.5-4.9); Potassium 3.7 mmol/L (3.5-5.1); Protein, Total 5.9 g/dL (6.4-8.2)
--- NOTE | 2020-09-26 06:20 | P.PN ---
Subjective Date of Service: 09/26/20 Primary Care Provider: Unknown Chief Complaint: Shortness of breath Subjective: Improving Physical Examination - Vital Signs Temperature: 97.8 F Blood Pressure: 148/80 Pulse: 76 Respirations: 18 Pulse Ox (%): 91 - Studies Microbiology Data (last 24 hrs): 09/24/20 02:56 Blood - Blood Gram Stain - Final Assessment & Plan Discharge Plan: Other (inpatient rehab vs Home) Plan to discharge in: 24 Hours Physician Review Additional Text: COVID: Positive, unvaccinated Initial Chest x-ray: COMPARISON: Chest Single View dated 11/16/2018; CHEST SINGLE VIEW dated 11/13/2012; CHEST SINGLE VIEW dated 02/04/2012 FINDINGS: Moderate patchy airspace disease is present bilaterally. Atherosc lerosis. The heart size is within normal limits.No acute osseous abnormality. No significant pleural effusions or pneumothorax. IMPRESSION: Moderate bilateral airspace disease concerning for multifocal pneumonia. Renal US: COMPARISON: ABDOMINAL EXAM LIMITED dated 11/14/2012 FINDINGS: Both kidneys are normal in size, shape and echotexture. The right kidney measures 9.6 x 5.5 x 4.7 cm. No hydronephrosis, focal mass or perinephric fluid. The left kidney measures 9.6 x 4.5 x 4.5 cm. No hydronephrosis, focal mass or perinephric fluid. The urinary bladder is incompletely distended without gross abnormality seen. IMPRESSION: Unremarkable renal sonogram. Follow up CXR: COMPARISON: Chest Single View dated 09/24/2020; Chest Single View dated 11/16/2018; CHEST SINGLE VIEW dated 11/13/2012; CHEST SINGLE VIEW dated 02/04/2012 FINDINGS: Portable technique limits examination quality. Since 09/24/2020, mild worsening is seen in bilateral pulmonary opacities. The heart is normal in size. No displaced fractures.Aortic atherosclerosis. IMPRESSION: Mild worsening is seen in lung aeration since 09/24/2020. Physical Exam: GENERAL: Patient alert, cooperative. Patient is Nepali-speaking. Patient does not appear to be well kept. VITAL SIGNS: Reviewed HEENT: Head is normocephalic and atraumatic. Extraocular muscles are intact. Pupils are equal, round, and reactive to light and accommodation. Mucous membranes noted NECK: Supple. No carotid bruits. No lymphadenopathy or thyromegaly. LUNGS: Better air movement bilateral. Currently on 3 L per nasal cannula. HEART: Regular rate and rhythm, no appreciable gallops, rubs, murmurs or extra heart sounds ABDOMEN: Soft, nontender, and nondistended. Positive bowel sounds. No hepatosplenomegaly was noted. EXTREMITIES: Without any cyanosis, clubbing, rash, lesions or peripheral edema. NEUROLOGIC: Patient alert, cooperative. Good range of motion. SKIN: Some breakdown of skin to the buttocks region. Impression: Dyspnea secondary to bilateral COVID-19 pneumonia with hypoxia Acute renal injury with hypernatremia suspect dehydration likely with chronic renal disease stage 3 Rheumatoid arthritis on chronic steroids HTN UTI Hyperglycemia suspect underlying diabetes mellitus type 2 Debility Plan: Dyspnea secondary to bilateral COVID-19 pneumonia with hypoxia: Patient improved since yesterday. Will continue with oxygen to maintain sats above 93%. Patient currently on 3 L per nasal cannula. Will continue with IV Solu-Medrol and vitamin supplementation. Continue with D5W. Physical therapy and Occupational Therapy ordered. Patient with underlying rheumatoid arthritis, hypertension. Continue with Rocephin for UTI.Encourage incentive spirometer, proning, ambulation. Spoke with family concerning plan of care. Likely home at discharge Acute renal injury with hypernatremia suspect dehydration likely with chronic renal disease stage 3: Continue with D5W. Encourage oral intake. Nephrology consulted to help assist. Rheumatoid Arthritis on chronic steroids: Patient has been seen by a doctor in [place]. Patient is a resident of the [facility]. Will provide medication for pain. Patient may have been taking chronic steroids. HTN: Continue lisinopril. Will monitor and adjust appropriately. UTI: Continue Rocephin. Cultures obtained. Blood culture positive likely contaminant. Urine culture pending Hyperglycemia suspect underlying diabetes mellitus type 2: A1c 6.3. Continue with diabetic diet. Accu-Cheks to be monitored. Sliding scale in place. Debility: PT reports debility. Will check with family to see if baseline. Will discuss with social service. Code Status: Full Code DVT prophylaxis: Lovenox Advanced Care Planning-30 minutes: Home at discharge vs Inpatient rehab. Time Spent Managing Pts Care (In Minutes): 55
[2020-09-26] MEDS: NYSTATIN PWDR 100000 UNIT/GM TOP SCH ×2 (09:00→21:00)
[2020-09-26] MEDS ORDERED: CEFTRIAXONE 1 GM/NS 50 ML 1 GM/50 ML BAG IV SCH (09:00)
[2020-09-26] MEDS ORDERED: POTASSIUM 25 MEQ EFFERV TAB PO ONE (09:00)
[2020-09-26] MEDS: ENOXAPARIN 40 MG/0.4 ML SQ SCH (10:10)
[2020-09-26] MEDS: FAMOTIDINE 20 MG TAB PO SCH ×2 (10:11→21:27)
[2020-09-26] MEDS: lisinopriL 10 MG TAB PO SCH (10:11)
[2020-09-26] MEDS: ASCORBIC ACID 500 MG TABLET PO SCH ×4 (10:11→21:27)
[2020-09-26] MEDS: ZINC SULFATE 220 MG CAP PO SCH (10:11)
[2020-09-26] MEDS: VITAMIN D 1000 UNIT TAB PO SCH (10:11)
[2020-09-26] MEDS: INSULIN -REGULAR HUMAN 50 UNIT/0.5 ML ML SQ SCH ×4 (10:12→21:26)
[2020-09-26] MEDS: THIAMINE 200 MG/2 ML INJ IVP SCH (10:17)
[2020-09-26] MEDS: CEFTRIAXONE/SWI 1gm 1 GM/10 ML SYR IV SCH (13:25)
--- NOTE | 2020-09-26 14:29 | PN ---
Date of Progress Note: 09/26/2020 Subjective: The patient was admitted with multiple wounds. The patient found to have hypernatremia. Sodium started trending down. The patient more awake. Physical Examination: Vital Signs: Blood pressure 162/87, pulse of 78, afebrile. The patient had urine output of 350. Chest: Clear to auscultation. Heart: S1, S2. Regular. Abdomen: Soft, nontender. Extremity: Trace edema. Neuro: Pleasantly confused. The patient had multiple ulcers on the upper thigh. Laboratory Data: Sodium 140, potassium 3.7, bicarb 23, BUN 46, creatinine 1, GFR of 52, calcium of 8 , phosphorus 3.1, C-reactive protein of 20, albumin 1.8, corrected calcium 9.6. WBC 8.5, H and H 12. 4/37.6. Urinalysis; specific gravity of 1.020. Current Medications: The patient on D5 normal saline, ceftriaxone, nystatin, enalapril, lisinopril, zinc sulfate, Pepcid. Assessment And Plan: 1.Acute kidney injury secondary to prerenal, recovered, resolved. 2.Hypernatremia secondary to poor intake. I am going to change IV fluid to plain D5 at rate of 125 and we will follow up the patient. 3.Multiple wounds. We will follow up with primary. Continue current antibiotics. 4.Hypomagnesemia. We will supplement. SANIYA Voice ID: [id number] Report ID: [id number]
[2020-09-26] MEDS ORDERED: PNEUMOCOCCAL VACCINE 0.5 ML IMVAC ONE (18:00)
[2020-09-26] MEDS: JUVEN PACKET PO SCH (21:00)
[2020-09-26] MEDS: GLUCERNA SHAKE 237 ML CAN PO SCH (21:00)
[2020-09-27] MEDS: METHYLPREDNISOLONE 40 MG INJ IV SCH ×3 (00:37→16:21)
[2020-09-27] MEDS: D5W 1,000 ML IV SCH ×4 (00:56→21:34)
[2020-09-27 05:33] LABS: Absolute Lymphocytes (CBC) 0.6 K/uL (0.7-4.9); Basophils % 0.2 % (0-1.3)
[2020-09-27 06:09] LABS: Platelet Estimate ADEQ; White Blood Cell Scan OK (OK)
[2020-09-27 06:10] LABS: Blood Morphology Comment NOT SEEN (NOT SEEN)
--- NOTE | 2020-09-27 06:21 | P.PN ---
Subjective Date of Service: 09/27/20 Primary Care Provider: Unknown Chief Complaint: Shortness of breath Subjective: Improving, Doing well Physical Examination - Vital Signs Temperature: 97.3 F Blood Pressure: 134/77 Pulse: 78 Respirations: 22 Pulse Ox (%): 93 - Studies Microbiology Data (last 24 hrs): 09/24/20 02:56 Blood - Blood Gram Stain - Final Assessment & Plan Discharge Plan: Home Plan to discharge in: 48 Hours Physician Review Additional Text: COVID: Positive, unvaccinated Initial Chest x-ray: COMPARISON: Chest Single View dated 11/16/2018; CHEST SINGLE VIEW dated 11/13/2012; CHEST SINGLE VIEW dated 02/04/2012 FINDINGS: Moderate patchy airspace disease is present bilaterally. Atherosclerosis. The heart size is within normal limits.No acute osseous abnormality. No significant pleural effusions or pneumothorax. IMPRESSION: Moderate bilateral airspace disease concerning for multifocal pneumonia. Renal US: COMPARISON: ABDOMINAL EXAM LIMITED dated 11/14/2012 FINDINGS: Both kidneys are normal in size, shape and echotexture. The right kidney measures 9.6 x 5.5 x 4.7 cm. No hydronephrosis, focal mass or perinephric fluid. The left kidney measures 9.6 x 4.5 x 4.5 cm. No hydronephrosis, focal mass or perinephric fluid. The urinary bladder is incompletely distended without gross abnormality seen. IMPRESSION: Unremarkable renal sonogram. Follow up CXR: COMPARISON: Chest Single View dated 09/24/2020; Chest Single View dated 11/16/2018; CHEST SINGLE VIEW dated 11/13/2012; CHEST SINGLE VIEW dated 02/04/2012 FINDINGS: Portable technique limits examination quality. Since 09/24/2020, mild worsening is seen in bilateral pulmonary opacities. The heart is normal in size. No displaced fractures.Aortic atherosclerosis. IMPRESSION: Mild worsening is seen in lung aeration since 09/24/2020. Physical Exam: GENERAL: Patient alert, cooperative. Patient is Angolan-speaking. Patient does not appear to be well kept. VITAL SIGNS: Reviewed HEENT: Head is normocephalic and atraumatic. Extraocular muscles are intact. Pupils are equal, round, and reactive to light and accommodation. Mucous membranes noted NECK: Supple. No carotid bruits. No lymphadenopathy or thyromegaly. LUNGS: Better air movement bilateral. Currently on 3 L per nasal cannula. HEART: Regular rate and rhythm, no appreciable gallops, rubs, murmurs or extra heart sounds ABDOMEN: Soft, nontender, and nondistended. Positive bowel sounds. No hepat osplenomegaly was noted. EXTREMITIES: Without any cyanosis, clubbing, rash, lesions or peripheral edema. NEUROLOGIC: Patient alert, cooperative. Good range of motion. SKIN: Some breakdown of skin to the buttocks region. Impression: Dyspnea secondary to bilateral COVID-19 pneumonia with hypoxia Acute renal injury with hypernatremia suspect dehydration likely with chronic renal disease stage 3 Rheumatoid arthritis on chronic steroids HTN UTI Hyperglycemia suspect underlying diabetes mellitus type 2 Debility Plan: Dyspnea secondary to bilateral COVID-19 pneumonia with hypoxia: Patient improved since yesterday. Will continue with oxygen to maintain sats above 93%. Patient currently on 3 L per nasal cannula. Will continue with IV Solu-Medrol and vitamin supplementation. Continue with D5W. Physical therapy and Occupational Therapy ordered. Patient with underlying rheumatoid arthritis, hypertension. Continue with Rocephin for UTI.Encourage incentive spirometer, proning, ambulation. Spoke with family concerning plan of care. Likely home at discharge Acute renal injury with hypernatremia suspect dehydration likely with chronic renal disease stage 3: Continue with D5W. Encourage oral intake. Nephrology consulted to help assist. Rheumatoid Arthritis on chronic steroids: Patient has been seen by a doctor in [place]. Patient is a resident of the [facility]. Will provide medication for pain. Patient may have been taking chronic steroids. HTN: Continue lisinopril. Will monitor and adjust appropriately. UTI, urine culture positive for E Coli: Change to Ceftin. Blood culture positive likely contaminant. Hyperglycemia suspect underlying diabetes mellitus type 2: A1c 6.3. Continue with diabetic diet. Accu-Cheks to be monitored. Sliding scale in place. Debility: PT reports debility. Will check with family to see if baseline. Will discuss with social service. Code Status: Full Code DVT prophylaxis: Lovenox Advanced Care Planning-30 minutes: Home at discharge vs Inpatient rehab. Spoke to family. She has papers to indicate that she [place] a [place]. She may not have insurance. Son will talk to Brother to see if she has insurance. Time Spent Managing Pts Care (In Minutes): 55
[2020-09-27 08:00] LABS: Albumin 1.7 g/dL (3.4-5.0); Bilirubin Total 0.3 mg/dL (0.2-1.0); C-Reactive Protein 9.82 mg/L (<3.00); Ferritin 485.2 ng/mL (8-388); Magnesium 2.2 mg/dL (1.8-2.4); Phosphorus 2.8 mg/dL (2.5-4.9); Potassium 4.1 mmol/L (3.5-5.1); Protein, Total 5.9 g/dL (6.4-8.2); Thyroid Stimulating Hormone 0.489 uIU/mL (0.360-3.740)
[2020-09-27] MEDS: GLUCERNA SHAKE 237 ML CAN PO SCH ×2 (08:56→21:00)
[2020-09-27] MEDS: VITAMIN D 1000 UNIT TAB PO SCH (08:56)
[2020-09-27] MEDS: JUVEN PACKET PO SCH ×2 (08:56→21:00)
[2020-09-27] MEDS: lisinopriL 10 MG TAB PO SCH (08:58)
[2020-09-27] MEDS: ENOXAPARIN 40 MG/0.4 ML SQ SCH (08:58)
[2020-09-27] MEDS: THIAMINE 200 MG/2 ML INJ IVP SCH (08:59)
[2020-09-27] MEDS: FAMOTIDINE 20 MG TAB PO SCH ×2 (08:59→21:34)
[2020-09-27] MEDS: ASCORBIC ACID 500 MG TABLET PO SCH ×4 (08:59→21:34)
[2020-09-27] MEDS: ZINC SULFATE 220 MG CAP PO SCH (08:59)
[2020-09-27] MEDS: MEDIHONEY 44 ML TOPICAL TUBE TOP SCH (09:04)
[2020-09-27] MEDS: INSULIN -REGULAR HUMAN 50 UNIT/0.5 ML ML SQ SCH ×4 (09:32→21:34)
--- NOTE | 2020-09-27 12:35 | RAD REPORT ---
EXAM DESCRIPTION: Sherrie Single View09/27/2020 12:17 pm CLINICAL HISTORY: Chest pain COMPARISON: September 25, 2020 FINDINGS: Bilateral pulmonary opacities have shown some improvement. Heart is borderline enlarged IMPRESSION: Improvement in the bilateral pulmonary opacities likely pneumonia
[2020-09-27] MEDS: NYSTATIN PWDR 100000 UNIT/GM TOP SCH ×2 (12:36→21:00)
[2020-09-27] MEDS: CEFTRIAXONE/SWI 1gm 1 GM/10 ML SYR IV SCH (13:00)
--- NOTE | 2020-09-27 15:34 | PN ---
Date of Progress Note: 09/27/2020 Subjective: The patient was admitted with acute kidney injury with hyponatremia. The patient's afte r hydration kidney function started to be normalized. Physical Examination: Vital Signs: Blood pressure of 149/80, pulse of 77, afebrile. Chest: Clear to auscultation. Heart: S1, S2. Extremities: Trace edema. No ulceration on the thigh. Neurologic: Alert, but confused. Laboratory Data: WBC 10.3, H and H 14/43. Sodium 137, potassium 4.1, bicarb 23, BUN 28, creatinine 0.9, uric acid of 5, calcium 7.8, phosphorus 2.8. UA; specific gravity of 1.020. Current Medications: The patient on include; 1.Ceftriaxone. 2.Nystatin. 3.Lovenox. 4.Lisinopril 10. 5.Zinc sulfate. 6.Pepcid. 7.Zofran. 8.D5 at 125 per hour. 9.KCl. Assessment And Plan: 1.Acute kidney injury secondary to prerenal, recovered, resolved. 2.Hypernatremia. Appropriate sodium correction. We will continue current rate of D5. The patient still has free water deficit. 3.Multiple wounds on the thighs. We will follow up with ID. Follow up with the primary. 4.Hypomagnesemia, status post supplement, recovered, resolved. AMBROSIO/MOLLY Voice ID: [id number] Report ID: [id number]
[2020-09-27] MEDS: CEFUROXIME 250 MG TAB PO SCH (21:37)
[2020-09-28] MEDS: METHYLPREDNISOLONE 40 MG INJ IV SCH ×2 (02:10→09:03)
[2020-09-28 06:09] LABS: Absolute Lymphocytes (CBC) 0.6 K/uL (0.7-4.9); Basophils % 0.5 % (0-1.3); Hematocrit 43.4 % (36.0-45.0); Lymphocytes % 6.6 % (15.3-44.8); RBC Red Blood Cell Count 4.77 M/uL (3.86-4.86)
[2020-09-28 06:17] LABS: Potassium 4.3 mmol/L (3.5-5.1)
--- NOTE | 2020-09-28 06:25 | P.PN ---
Subjective Date of Service: 09/28/20 Primary Care Provider: Unknown Chief Complaint: Shortness of breath Subjective: No new changes Physical Examination - Vital Signs Temperature: 97.0 F Blood Pressure: 176/87 Pulse: 77 Respirations: 20 Pulse Ox (%): 97 - Physical Exam General: Other (appears as her stated age) HEENT: Atraumatic, Normocephalic Neck: Supple, JVD not distended Respiratory: Normal air movement Cardiovascular: No rubs, No murmurs Gastrointestinal: Soft and benign Urinary: Other (no bladder distention) Assessment And Plan - Plan 1. Acute kidney injury 2/2 prerenal azotemia, nonoliguric acute tubular necrosis associated with dehydration and manifested by hypernatremia. SCr imrpoved to 0.9. Baseline serum creatinine was previously 1.2 (CKD3) in November 2018. [place] by mouth fluid intake. monitor renal panel. 2. Hypernatremia. Resolved. Weight 90.9 kg. Total body water 40.9 L. liberal by mouth fluid intake. 3. COVID pneumonia. Mngt per primary team. 4. DM, management per primary team. 5. Dispo. Dc plan to home ongoing. Physician Review Additional Text: COVID: Positive, unvaccinated Initial Chest x-ray: COMPARISON: Chest Single View dated 11/16/2018; CHEST SINGLE VIEW dated 11/13/2012; CHEST SINGLE VIEW dated 02/04/2012 FINDINGS: Moderate patchy airspace disease is present bilaterally. Atherosclerosis. The heart size is within normal limits.No acute osseous abnormality. No significant pleural effusions or pneumothorax. IMPRESSION: Moderate bilateral airspace disease concerning for multifocal pneumonia. Renal US: COMPARISON: ABDOMINAL EXAM LIMITED dated 11/14/2012 FINDINGS: Both kidneys are normal in size, shape and echotexture. The right kidney measures 9.6 x 5.5 x 4.7 cm. No hydronephrosis, focal mass or perinephric fluid. The left kidney measures 9.6 x 4.5 x 4.5 cm. No hydronephrosis, focal mass or perinephric fluid. The urinary bladder is incompletely distended without gross abnormality seen. IMPRESSION: Unremarkable renal sonogram. Follow up CXR: COMPARISON: Chest Single View dated 09/24/2020; Chest Single View dated 11/16/2018; CHEST SINGLE VIEW dated 11/13/2012; CHEST SINGLE VIEW dated 02/04/2012 FINDINGS: Portable technique limits examination quality. Since 09/24/2020, mild worsening is seen in bilateral pulmonary opacities. The heart is normal in size. No displaced fractures.Aortic atherosclerosis. IMPRESSION: Mild worsening is seen in lung aeration since 09/24/2020. Physical Exam: GENERAL: Patient alert, cooperative. Patient is Uz[place]-speaking. Patient does not appear to be well kept. VITAL SIGNS: Reviewed HEENT: Head is normocephalic and atraumatic. Extraocular muscles are intact. Pupils are equal, round, and reactive to light and accommodation. Mucous membranes noted NECK: Supple. No carotid bruits. No lymphadenopathy or thyromegaly. LUNGS: Better air movement bilateral. Currently on 3 L per nasal cannula. HEART: Regular rate and rhythm, no appreciable gallops, rubs, murmurs or extra heart sounds ABDOMEN: Soft, nontender, and nondistended. Positive bowel sounds. No hepatosplenomegaly was noted. EXTREMITIES: Without any cyanosis, clubbing, rash, lesions or peripheral edema. NEUROLOGIC: Patient alert, cooperative. Good range of motion. SKIN: Some breakdown of skin to the buttocks region. Impression: Dyspnea secondary to bilateral COVID-19 pneumonia with hypoxia Acute renal injury with hypernatremia suspect dehydration likely with chronic renal disease stage 3 Rheumatoid arthritis on chronic steroids HTN UTI Hyperglycemia suspect underlying diabetes mellitus type 2 Debility Plan: Dyspnea secondary to bilateral COVID-19 pneumonia with hypoxia: Patient improved since yesterday. Will continue with oxygen to maintain sats above 93%. Patient currently on 3 L per nasal cannula. Will continue with IV Solu-Medrol and vitamin supplementation. Continue with D5W. Physical therapy and Occupational Therapy ordered. Patient with underlying rheumatoid arthritis, hypertension. Continue with Rocephin for UTI.Encourage incentive spirometer, proning, ambulation. Spoke with family concerning plan of care. Likely home at discharge Acute renal injury with hypernatremia suspect dehydration likely with chronic renal disease stage 3: Continue with D5W. Encourage oral intake. Nephrology consulted to help assist. Rheumatoid Arthritis on chronic steroids: Patient has been seen by a doctor in [place]. Patient is a resident of the [facility]. Will provide medication for pain. Patient may have been taking chronic steroids. HTN: Continue lisinopril. Will monitor and adjust appropriately. UTI, urine culture positive for E Coli: Change to Ceftin. Blood culture positive likely contaminant. Hyperglycemia suspect underlying diabetes mellitus type 2: A1c 6.3. Continue with diabetic diet. Accu-Cheks to be monitored. Sliding scale in place. Debility: PT reports debility. Will check with family to see if baseline. Will discuss with social service. Code Status: Full Code DVT prophylaxis: Lovenox Advanced Care Planning-30 minutes: Home at discharge vs Inpatient rehab. Spoke to family. She has papers to indicate that [place]. She may not have insurance. Son will talk to Brother to see if she has insurance.
--- NOTE | 2020-09-28 06:28 | P.PN ---
Subjective Date of Service: 09/28/20 Primary Care Provider: Unknown Chief Complaint: Shortness of breath Subjective: Improving (Patient stable at this time. Currently on 2 and half liters.) Physical Examination - Vital Signs Temperature: 97.0 F Blood Pressure: 176/87 Pulse: 77 Respirations: 20 Pulse Ox (%): 97 Assessment & Plan Discharge Plan: Home Plan to discharge in: 24 Hours Physician Review Additional Text: COVID: Positive, unvaccinated Initial Chest x-ray: COMPARISON: Chest Single View dated 11/16/2018; CHEST SINGLE VIEW dated 11/13/2012; CHEST SINGLE VIEW dated 02/04/2012 FINDINGS: Moderate patchy airspace disease is present bilaterally. Atherosclerosis. The heart size is within normal limits.No acute osseous abnormality. No significant pleural effusions or pneumothorax. IMPRESSION: Moderate bilateral airspace disease concerning for multifocal pneumonia. Renal US: COMPARISON: ABDOMINAL EXAM LIMITED dated 11/14/2012 FINDINGS: Both kidneys are normal in size, shape and echotexture. The right kidney measures 9.6 x 5.5 x 4.7 cm. No hydronephrosis, focal mass or perinephric fluid. The left kidney measures 9.6 x 4.5 x 4.5 cm. No hydronephrosis, focal mass or perinephric fluid. The urinary bladder is incompletely distended without gross abnormality seen. IMPRESSION: Unremarkable renal sonogram. Follow up CXR: COMPARISON: Chest Single View dated 09/24/2020; Chest Single View dated 11/16/2018; CHEST SINGLE VIEW dated 11/13/2012; CHEST SINGLE VIEW dated 02/04/2012 FINDINGS: Portable technique limits examination quality. Since 09/24/2020, mild worsening is seen in bilateral pulmonary opacities. The heart is normal in size. No displaced fractures.Aortic atherosclerosis. IMPRESSION: Mild worsening is seen in lung aeration since 09/24/2020. Physical Exam: GENERAL: Patient alert, cooperative. Patient is Luxembourger-speaking. Patient does not appear to be well kept. VITAL SIGNS: Reviewed HEENT: Head is normocephalic and atraumatic. Extraocular muscles are intact. Pupils are equal, round, and reactive to light and accommodation. Mucous membranes noted NECK: Supple. No carotid bruits. No lymphadenopathy or thyromegaly. LUNGS: Better air movement bilateral. Stable on 2 and half liters HEART: Regular rate and rhythm, no appreciable gallops, rubs, murmurs or extra heart sounds ABDOMEN: Soft, nontender, and nondistended. Positive bowel sounds. No hepatosplenomegaly was noted. EXTREMITIES: Without any cyanosis, clubbing, rash, lesions or peripheral edema. NEUROLOGIC: Patient alert, cooperative. Good range of motion. SKIN: Some breakdown of skin to the buttocks region. Impression: Dyspnea secondary to bilateral COVID-19 pneumonia with hypoxia Acute renal injury with hypernatremia suspect dehydration likely with chronic renal disease stage 3 Rheumatoid arthritis on chronic steroids HTN UTI Hyperglycemia suspect underlying diabetes mellitus type 2 Debility Plan: Dyspnea secondary to bilateral COVID-19 pneumonia with hypoxia: Patient remained stable on 2 and half liters. Will discontinue IV Solu-Medrol and change to prednisone 20 mg 1 pill twice daily. Discontinue IV fluids. Discontinue Zapien catheter. Patient has been switched to Ceftin for UTI. Renal function stable. Will plan for discharge today. Will need to get a hold of family to address plan of care. Need to consider caregiver services at discharge. I tried to contact family to address plan of care. Plan of care yesterday was for the patient to go home with possible caregiver services. Patient does not have any insurance will address with director of social services. Acute renal injury with hypernatremia suspect dehydration likely with chronic renal disease stage 3: Renal function stable. Discontinue IV fluids.. Encourage oral intake. Nephrology consulted to help assist. Rheumatoid Arthritis on chronic steroids: Patient has been seen by a doctor in [place]. Patient is a resident of the [facility]. Will provide medication for pain. Patient may have been taking chronic steroids. HTN: Continue lisinopril. Will monitor and adjust appropriately. UTI, urine culture positive for E Coli: Continue Ceftin for 7 days. Blood culture positive likely contaminant. Hyperglycemia suspect underlying diabetes mellitus type 2: A1c 6.3. Continue with diabetic diet. Accu-Cheks to be monitored. Sliding scale in place. Debility: PT reports debility. Will check with family to see if baseline. Will discuss with social service. Code Status: Full Code DVT prophylaxis: Lovenox Advanced Care Planning-30 minutes: Home with caregiver services. Time Spent Managing Pts Care (In Minutes): 55
[2020-09-28 06:29] LABS: Albumin 1.8 g/dL (3.4-5.0); Bilirubin Total 0.3 mg/dL (0.2-1.0); C-Reactive Protein 5.61 mg/L (<3.00); Magnesium 2.3 mg/dL (1.8-2.4); Phosphorus 2.7 mg/dL (2.5-4.9); Protein, Total 5.9 g/dL (6.4-8.2)
[2020-09-28] MEDS: D5W 1,000 ML IV SCH (07:34)
[2020-09-28] MEDS: ZINC SULFATE 220 MG CAP PO SCH (09:02)
[2020-09-28] MEDS: INSULIN -REGULAR HUMAN 50 UNIT/0.5 ML ML SQ SCH ×4 (09:02→21:00)
[2020-09-28] MEDS: ENOXAPARIN 40 MG/0.4 ML SQ SCH (09:02)
[2020-09-28] MEDS: lisinopriL 10 MG TAB PO SCH (09:03)
[2020-09-28] MEDS: VITAMIN D 1000 UNIT TAB PO SCH (09:03)
[2020-09-28] MEDS: FAMOTIDINE 20 MG TAB PO SCH ×2 (09:03→21:52)
[2020-09-28] MEDS: CEFUROXIME 250 MG TAB PO SCH ×2 (09:03→21:56)
[2020-09-28] MEDS: ASCORBIC ACID 500 MG TABLET PO SCH ×4 (09:03→21:52)
[2020-09-28] MEDS: MEDIHONEY 44 ML TOPICAL TUBE TOP SCH (09:04)
[2020-09-28] MEDS: NYSTATIN PWDR 100000 UNIT/GM TOP SCH ×2 (09:04→21:00)
[2020-09-28] MEDS: GLUCERNA SHAKE 237 ML CAN PO SCH ×2 (09:05→21:00)
[2020-09-28] MEDS: JUVEN PACKET PO SCH ×2 (09:06→21:00)
[2020-09-28] MEDS: THIAMINE 200 MG/2 ML INJ IVP SCH (09:10)
[2020-09-28] MEDS: predniSONE 20 MG TAB PO SCH (21:52)
[2020-09-29 05:53] LABS: Absolute Lymphocytes (CBC) 0.6 K/uL (0.7-4.9); Basophils % 0.2 % (0-1.3); Hematocrit 44.1 % (36.0-45.0); Lymphocytes % 6.4 % (15.3-44.8); RBC Red Blood Cell Count 4.87 M/uL (3.86-4.86)
[2020-09-29] MEDS: INSULIN -REGULAR HUMAN 50 UNIT/0.5 ML ML SQ SCH ×4 (07:30→21:00)
[2020-09-29] MEDS: JUVEN PACKET PO SCH ×2 (09:00→21:00)
[2020-09-29] MEDS: NYSTATIN PWDR 100000 UNIT/GM TOP SCH ×2 (09:00→21:00)
[2020-09-29] MEDS: GLUCERNA SHAKE 237 ML CAN PO SCH ×2 (09:00→21:00)
[2020-09-29] MEDS: MEDIHONEY 44 ML TOPICAL TUBE TOP SCH (09:00)
[2020-09-29 09:07] LABS: Albumin 1.8 g/dL (3.4-5.0); C-Reactive Protein 3.4 mg/L (<3.00); Ferritin 415.2 ng/mL (8-388); Magnesium 2.5 mg/dL (1.8-2.4); Potassium 4.9 mmol/L (3.5-5.1)
[2020-09-29] MEDS: lisinopriL 10 MG TAB PO SCH (09:44)
[2020-09-29] MEDS: ZINC SULFATE 220 MG CAP PO SCH (09:44)
[2020-09-29] MEDS: ASCORBIC ACID 500 MG TABLET PO SCH ×4 (09:44→21:21)
[2020-09-29] MEDS: FAMOTIDINE 20 MG TAB PO SCH ×2 (09:44→21:21)
[2020-09-29] MEDS: predniSONE 20 MG TAB PO SCH ×2 (09:44→21:22)
[2020-09-29] MEDS: VITAMIN D 1000 UNIT TAB PO SCH (09:44)
[2020-09-29] MEDS: ENOXAPARIN 40 MG/0.4 ML SQ SCH (09:45)
[2020-09-29] MEDS: CEFUROXIME 250 MG TAB PO SCH ×2 (09:45→21:21)
[2020-09-29] MEDS: THIAMINE 200 MG/2 ML INJ IVP SCH (10:06)
--- NOTE | 2020-09-29 15:37 | P.PN ---
Subjective Date of Service: 09/29/20 Primary Care Provider: Unknown Chief Complaint: Shortness of breath Subjective Pt admitted with COVID 19 pneumonia Nephrology consulted for MARK today Cr stable No new complaints Physical exam general: AAOX3, NAD , obese Neck; Supple, No elevated JVD chest CTAB, no rlaes or wheezes hear: RRR, normal S1,2 no murmur or rub Chest: CTAB, no rales or wheezes Abdomen: Soft , Nt Extremities No edema or ulcer A/P Acute kidney injury resolved 2/2 prerenal azotemia, Hypernatremia. Resolved. COVID pneumonia. Completed treatment Mngt per primary team DM, management per primary team. HTN cont lisinopril if BP cont to be elevated then will increase lisinopril Physical Examination - Vital Signs Temperature: 97.5 F Blood Pressure: 167/84 Pulse: 90 Respirations: 16 Pulse Ox (%): 94 - Studies Microbiology Data (last 24 hrs): 09/24/20 02:56 Blood - Blood Aerobic Blood Culture - Final No growth in 5 days. 09/24/20 02:56 Blood - Blood Anaerobic Blood Culture - Final 09/24/20 02:56 Blood - Blood Gram Stain - Final 09/24/20 02:50 Blood - Blood Aerobic Blood Culture - Final No growth in 5 days. 09/24/20 02:50 Blood - Blood Anaerobic Blood Culture - Final No growth in 5 days.
[2020-09-30 04:23] LABS: Alpha-1-Globulins 0.4 g/dL (0.2-0.3); Alpha-2-Globulins 1.1 g/dL (0.5-0.9); Gamma Globulins 1.3 g/dL (0.8-1.7); INTERPRETATION REPORT
[2020-09-30 05:57] LABS: Absolute Lymphocytes (CBC) 0.7 K/uL (0.7-4.9); Basophils % 0.4 % (0-1.3); Hematocrit 44.6 % (36.0-45.0); Lymphocytes % 7.6 % (15.3-44.8); MPV 10.5 fL (7.6-11.3); RBC Red Blood Cell Count 4.91 M/uL (3.86-4.86)
[2020-09-30 06:31] LABS: Albumin 1.8 g/dL (3.4-5.0); C-Reactive Protein 6.11 mg/L (<3.00); Ferritin 460.6 ng/mL (8-388); Magnesium 2.4 mg/dL (1.8-2.4); Phosphorus 3.1 mg/dL (2.5-4.9); Potassium 4.8 mmol/L (3.5-5.1)
[2020-09-30] MEDS: INSULIN -REGULAR HUMAN 50 UNIT/0.5 ML ML SQ SCH ×4 (07:30→21:00)
[2020-09-30] MEDS: lisinopriL 10 MG TAB PO SCH (08:29)
[2020-09-30] MEDS: VITAMIN D 1000 UNIT TAB PO SCH (08:29)
[2020-09-30] MEDS: ASCORBIC ACID 500 MG TABLET PO SCH ×4 (08:29→21:59)
[2020-09-30] MEDS: ZINC SULFATE 220 MG CAP PO SCH (08:29)
[2020-09-30] MEDS: FAMOTIDINE 20 MG TAB PO SCH ×2 (08:30→21:59)
[2020-09-30] MEDS: CEFUROXIME 250 MG TAB PO SCH ×2 (08:30→21:59)
[2020-09-30] MEDS: THIAMINE 200 MG/2 ML INJ IVP SCH (08:30)
[2020-09-30] MEDS: predniSONE 20 MG TAB PO SCH ×2 (08:30→21:59)
[2020-09-30] MEDS: ENOXAPARIN 40 MG/0.4 ML SQ SCH (08:30)
[2020-09-30] MEDS: GLUCERNA SHAKE 237 ML CAN PO SCH ×2 (08:31→21:59)
[2020-09-30] MEDS: JUVEN PACKET PO SCH ×2 (08:31→21:59)
[2020-09-30] MEDS: NYSTATIN PWDR 100000 UNIT/GM TOP SCH ×2 (08:31→21:00)
[2020-09-30] MEDS: MEDIHONEY 44 ML TOPICAL TUBE TOP SCH (08:31)
[2020-09-30 11:47] LABS: Blood Morphology Comment NOT SEEN (NOT SEEN); Platelet Estimate ADEQ
--- NOTE | 2020-09-30 11:58 | P.PN ---
Subjective Date of Service: 09/30/20 Primary Care Provider: Unknown Chief Complaint: Shortness of breath Subjective Pt admitted with COVID 19 pneumonia Nephrology consulted for MARK today Cr stable No new complaints off OXygen discharge plan as per primary team Physical exam general: AAOX3, NAD , obese Neck; Supple, No elevated JVD chest CTAB, no rlaes or wheezes hear: RRR, normal S1,2 no murmur or rub Chest: CTAB, no rales or wheezes Abdomen: Soft , Nt Extremities No edema or ulcer A/P Acute kidney injury resolved 2/2 prerenal azotemia, Hypernatremia. Resolved. COVID pneumonia. Completed treatment Mngt per primary team DM, management per primary team. HTN cont lisinopril if BP cont to be elevated then will increase lisinopril Physical Examination - Vital Signs Temperature: 96.8 F Blood Pressure: 174/79 Pulse: 75 Respirations: 18 Pulse Ox (%): 97 - Studies Microbiology Data (last 24 hrs): 09/24/20 02:56 Blood - Blood Aerobic Blood Culture - Final No growth in 5 days. 09/24/20 02:56 Blood - Blood Anaerobic Blood Culture - Final 09/24/20 02:56 Blood - Blood Gram Stain - Final
[2020-10-01 06:26] LABS: Absolute Lymphocytes (CBC) 0.8 K/uL (0.7-4.9); Basophils % 0.8 % (0-1.3); Lymphocytes % 10.1 % (15.3-44.8); MPV 11.1 fL (7.6-11.3); RBC Red Blood Cell Count 4.73 M/uL (3.86-4.86)
[2020-10-01 06:41] LABS: Albumin 1.7 g/dL (3.4-5.0); BUN Blood Urea Nitrogen 32 mg/dL (7-18); Bicarbonate 26 mmol/L (21-32); C-Reactive Protein 8.54 mg/L (<3.00); Ferritin 552.4 ng/mL (8-388); Glucose Level 148 mg/dL (74-106); Magnesium 2.1 mg/dL (1.8-2.4); Phosphorus 2.5 mg/dL (2.5-4.9); Potassium 4.5 mmol/L (3.5-5.1); Sodium Level 140 mmol/L (136-145)
--- NOTE | 2020-10-01 07:25 | P.PN ---
Subjective Date of Service: 09/29/20 Patient is clinically doing well. She is mainly Uzbek-speaking but she does seem to a answer a lot of my questions. She seems a little confused. Will go economic adviser and speak with her as well. She has multiple bed sores. Will need to get wound care and continue with therapy. Oxygenation is stable. Review of Systems 10-point ROS is otherwise unremarkable Physical Examination - Vital Signs Temperature: 96.9 F Blood Pressure: 123/62 Pulse: 72 Respirations: 18 Pulse Ox (%): 95 - Physical Exam General: Alert, In no apparent distress, Oriented x3 Cardiovascular: Regular rate/rhythm, Normal S1 S2, No murmurs Gastrointestinal: Normal bowel sounds, Soft and benign, Non-distended, No tenderness Musculoskeletal: No clubbing, No swelling, No tenderness Integumentary: Pressure ulcer Neurological: Sensation intact, Cranial nerves 3-12 intact, Other (Generalized weakness), Dementia - Studies Medications List Reviewed: Yes Assessment & Plan - Problems (Diagnosis) (1) Pneumonia due to COVID-19 virus Current Visit: Yes Status: Acute (2) Sacral decubitus ulcer, stage III Current Visit: Yes Status: Acute (3) Altered mental status Current Visit: Yes Status: Acute (4) Hyperglycemia Current Visit: Yes Status: Acute (5) Malnutrition Current Visit: Yes Status: Acute - Plan 1. Continue with IV steroids 2. Monitor inflammatory markers 3. Repeat chest x-ray 4. O2 per protocol 5. Nephrology consultation 6. Continue with albuterol inhaler therapy; also supportive care 7. Wound care and physical therapy 8. detention facility placement 9. GI and DVT prophylaxis Discharge Plan: [facility] Plan to discharge in: Greater than 2 days - Advance Directives Does patient have a Living Will: No Does patient have a Durable POA for Healthcare: No - Code Status/Comfort Care Code Status Assessed: Yes Code Status: Full Code Critical Care: No Time Spent Managing PTS Care (In Minutes): 35
--- NOTE | 2020-10-01 07:28 | P.PN ---
Date of Service: 09/30/20 Subjective Patient is continuing to do well with no new complaints. Continue with current plan of care. Review of Systems 10-point ROS is otherwise unremarkable Physical Examination - Vital Signs Reviewed - Physical Exam General: Alert, In no apparent distress, Oriented x2 Cardiovascular: Regular rate/rhythm, Normal S1 S2, No murmurs Gastrointestinal: Normal bowel sounds, Soft and benign, Non-distended, No tenderness Musculoskeletal: No clubbing, No swelling, No tenderness Integumentary: Pressure ulcer Neurological: Sensation intact, Cranial nerves 3-12 intact, Other (Generalized weakness), Dementia Assessment & Plan - Problems (Diagnosis) (1) Pneumonia due to COVID-19 virus Current Visit: Yes Status: Acute (2) Sacral decubitus ulcer, stage III Current Visit: Yes Status: Acute (3) Altered mental status Current Visit: Yes Status: Acute (4) Hyperglycemia Current Visit: Yes Status: Acute (5) Malnutrition Current Visit: Yes Status: Acute - Plan Continue with plan of care as mentioned below: 1. Continue with IV steroids 2. Monitor inflammatory markers 3. Repeat chest x-ray 4. O2 per protocol 5. Nephrology consultation 6. Continue with albuterol inhaler therapy; also supportive care 7. Wound care and physical therapy 8. senior living facility placement 9. GI and DVT prophylaxis
--- NOTE | 2020-10-01 07:29 | P.PN ---
Date of Service: 10/01/20 Subjective Patient continues to do well with no new complaints. Awaiting for placement. Continue with therapy as well. Review of Systems 10-point ROS is otherwise unremarkable Physical Examination - Vital Signs Reviewed - Physical Exam General: Alert, In no apparent distress, Oriented x2 Cardiovascular: Regular rate/rhythm, Normal S1 S2, No murmurs Gastrointestinal: Normal bowel sounds, Soft and benign, Non-distended, No tenderness Musculoskeletal: No clubbing, No swelling, No tenderness Integumentary: Pressure ulcer Neurological: No focal deficits Assessment & Plan - Problems (Diagnosis) (1) Pneumonia due to COVID-19 virus Current Visit: Yes Status: Acute (2) Sacral decubitus ulcer, stage III Current Visit: Yes Status: Acute (3) Altered mental status Current Visit: Yes Status: Acute (4) Hyperglycemia Current Visit: Yes Status: Acute (5) Malnutrition Current Visit: Yes Status: Acute - Plan Continue with plan of care as mentioned below: 1. Continue with IV steroids 2. Monitor inflammatory markers 3. Repeat chest x-ray 4. O2 per protocol 5. Nephrology consultation 6. Continue with albuterol inhaler therapy; also supportive care 7. Wound care and physical therapy 8. long-term facility placement 9. GI and DVT prophylaxis
[2020-10-01] MEDS: INSULIN -REGULAR HUMAN 50 UNIT/0.5 ML ML SQ SCH ×4 (07:30→21:00)
[2020-10-01] MEDS: THIAMINE 200 MG/2 ML INJ IVP SCH ×2 (08:59→09:00)
[2020-10-01] MEDS: VITAMIN D 1000 UNIT TAB PO SCH (08:59)
[2020-10-01] MEDS: predniSONE 20 MG TAB PO SCH ×2 (08:59→20:48)
[2020-10-01] MEDS: ZINC SULFATE 220 MG CAP PO SCH (08:59)
[2020-10-01] MEDS: lisinopriL 10 MG TAB PO SCH (08:59)
[2020-10-01] MEDS: FAMOTIDINE 20 MG TAB PO SCH ×2 (08:59→20:48)
[2020-10-01] MEDS: MEDIHONEY 44 ML TOPICAL TUBE TOP SCH (08:59)
[2020-10-01] MEDS: CEFUROXIME 250 MG TAB PO SCH ×2 (08:59→20:48)
[2020-10-01] MEDS: ASCORBIC ACID 500 MG TABLET PO SCH ×6 (09:00→20:48)
[2020-10-01] MEDS: JUVEN PACKET PO SCH ×3 (09:00→20:48)
[2020-10-01] MEDS: GLUCERNA SHAKE 237 ML CAN PO SCH ×3 (09:00→20:49)
[2020-10-01] MEDS: NYSTATIN PWDR 100000 UNIT/GM TOP SCH ×2 (09:00→20:48)
[2020-10-01] MEDS: ENOXAPARIN 40 MG/0.4 ML SQ SCH (09:00)
[2020-10-02] MEDS: INSULIN -REGULAR HUMAN 50 UNIT/0.5 ML ML SQ SCH ×4 (07:30→20:38)
--- NOTE | 2020-10-02 07:41 | RAD REPORT ---
EXAM DESCRIPTION: MRI - Brain Wo Cont - 10/01/2020 12:44 pm CLINICAL HISTORY: AMS Imaging system malfunction and telephone system malfunction precluded earlier final report or telepho ne reporting. COMPARISON: No comparisons TECHNIQUE: Sagittal T1-weighted images were obtained along with axial PD, heavily T2-weighted and T2 -FLAIR images. Axial DWI and ADC mapping sequences were also obtained along with coronal heavily T2-w eighted images. FINDINGS: No intracranial hemorrhage, mass or acute infarction. There is no edema or shift of midlin e structures. No extra-axial fluid collections. Armas-matter/white matter junction is preserved. Signa l voids are seen as a normal finding in the major intracranial vessels. Mild atrophy changes are pres ent with ventricles in proportion to the amount of volume loss. Patient has only trace amounts of chr onic ischemic change scattered in the cerebral white matter. No globe or orbital content abnormality. No significant mastoid air cell or paranasal sinus finding. IMPRESSION: Mild atrophy and very minimal chronic ischemic changes are present. No acute intracranial finding.
[2020-10-02] MEDS: NYSTATIN PWDR 100000 UNIT/GM TOP SCH ×2 (09:00→20:37)
[2020-10-02] MEDS: MEDIHONEY 44 ML TOPICAL TUBE TOP SCH (09:00)
[2020-10-02] MEDS: ASCORBIC ACID 500 MG TABLET PO SCH ×4 (09:24→20:38)
[2020-10-02] MEDS: THIAMINE 200 MG/2 ML INJ IVP SCH (09:24)
[2020-10-02] MEDS: lisinopriL 10 MG TAB PO SCH (09:24)
[2020-10-02] MEDS: VITAMIN D 1000 UNIT TAB PO SCH (09:24)
[2020-10-02] MEDS: ENOXAPARIN 40 MG/0.4 ML SQ SCH (09:25)
[2020-10-02] MEDS: ZINC SULFATE 220 MG CAP PO SCH (09:26)
[2020-10-02] MEDS: CEFUROXIME 250 MG TAB PO SCH ×2 (09:26→20:37)
[2020-10-02] MEDS: FAMOTIDINE 20 MG TAB PO SCH ×2 (09:26→20:38)
[2020-10-02] MEDS: predniSONE 20 MG TAB PO SCH ×2 (09:26→20:38)
[2020-10-02] MEDS: GLUCERNA SHAKE 237 ML CAN PO SCH ×2 (09:27→20:37)
[2020-10-02] MEDS: JUVEN PACKET PO SCH ×2 (09:27→20:37)
--- NOTE | 2020-10-02 17:46 | PN ---
Date of Progress Note: 10/02/2020 Subjective: The patient was admitted with acute kidney injury secondary to prerenal and hypernatremi a. After hydration, kidney function has been normalized. The patient had COVID pneumonia. Physical Examination: Vital Signs: When I saw the patient; blood pressure 124/61, pulse of 90, afebrile. Chest: Clear to auscultation. Heart: S1, S2. Regular. Abdomen: Soft, nontender. Extremity: Trace edema. Neuro: Alert. No focality. Laboratory Data: H and H are 14.1/43. Sodium 140, potassium 4.5, bicarb 26, BUN 34, creatinine 0.5, calcium 7.7, phosphorus 2.5, magnesium 2.1, albumin 1.7. Corrected calcium is 10.2. Current Medications: The patient on include; 1.Pepcid. 2.Zofran. 3.Prednisone. 4.Tramadol. 5.Solu-Medrol. Assessment And Plan: 1.Acute kidney injury secondary to prerenal, recovered, resolved. 2.Hypernatremia secondary to dehydration, resolved. Off IV fluid. We will follow up with the alexandro allen. 3.COVID pneumonia. Continue current treatment. On the recovery. 4.Deconditioning. Continue PT/OT. AMBROSIO/MODL Voice ID: [id number] Report ID: [id number]
--- NOTE | 2020-10-02 18:01 | PN ---
Date of Progress Note: 10/01/2020 Chief Complaint: Acute kidney injury. Subjective: The patient admitted for COVID pneumonia. She has hypoxemic respiratory failure. Creat inine has been stabilized with IV fluids. Review of Systems: The patient denies new complaints. Physical Examination: Heart: S1, S2. No pericardial friction rub. Abdomen: Soft. Extremities: No edema. Impression And Plan: 1.Acute kidney injury, resolved , secondary to prerenal azotemia. The patient developed acute kidne y injury that has responded to IV fluids. 2.Hypernatremia. The patient received IV fluids to correct hypernatremia . 3.Dehydration. Continue to monitor fluid balance. If the patient is tolerating p.o. intake, contin ue adequate hydration by mouth. 4.COVID pneumonia. The patient completed treatment per recommendations from primary team. 5.Diabetes mellitus. Management per primary team. EB/MODL Voice ID: [id number] Report ID: [id number]
[2020-10-03] MEDS: INSULIN -REGULAR HUMAN 50 UNIT/0.5 ML ML SQ SCH ×4 (07:30→20:29)
[2020-10-03] MEDS: ENOXAPARIN 40 MG/0.4 ML SQ SCH (09:00)
[2020-10-03] MEDS: THIAMINE 200 MG/2 ML INJ IVP SCH (09:14)
[2020-10-03] MEDS: FAMOTIDINE 20 MG TAB PO SCH ×2 (09:14→20:29)
[2020-10-03] MEDS: ZINC SULFATE 220 MG CAP PO SCH (09:14)
[2020-10-03] MEDS: lisinopriL 10 MG TAB PO SCH (09:15)
[2020-10-03] MEDS: VITAMIN D 1000 UNIT TAB PO SCH (09:15)
[2020-10-03] MEDS: predniSONE 20 MG TAB PO SCH ×2 (09:15→20:27)
[2020-10-03] MEDS: ASCORBIC ACID 500 MG TABLET PO SCH ×4 (09:15→20:29)
[2020-10-03] MEDS: CEFUROXIME 250 MG TAB PO SCH (09:16)
[2020-10-03] MEDS: GLUCERNA SHAKE 237 ML CAN PO SCH ×2 (09:17→21:00)
[2020-10-03] MEDS: MEDIHONEY 44 ML TOPICAL TUBE TOP SCH (09:17)
[2020-10-03] MEDS: NYSTATIN PWDR 100000 UNIT/GM TOP SCH ×2 (09:17→20:29)
[2020-10-03] MEDS: JUVEN PACKET PO SCH ×2 (09:18→20:28)
--- NOTE | 2020-10-03 09:37 | P.PN ---
Date of Service: 10/02/20 Subjective PATIENT DOING WELL WITH NO NEW COMPLAINTS. SHE IS MORE AWAKE AND ALERT. SPOKE WITH FAMILY AND THEY WILL BE COMING BY THE HOSPITAL IN THE EVENING TO LEARN HOW TO DO THE WOUND CARE AND THERAPY WITH HER. WILL GET PHYSICAL THERAPY AND OCCUPATIONAL THERAPY TO ENGAGE IN HOSPITAL. HOPEFULLY, OVER THE NEXT 48-72 HR WE CAN WORK ON DISCHARGING HER WITH FAMILY TO THE HOME. SPOKE WITH HER SON WHO IS AGREEABLE CALM AFTER WORK AND START LEARNING HOW TO TAKE CARE OF HER AT THE HOUSE. Review of Systems 10-point ROS is otherwise unremarkable Physical Examination - Vital Signs Reviewed - Physical Exam General: Alert, In no apparent distress, Oriented x2 Cardiovascular: Regular rate/rhythm, Normal S1 S2, No murmurs Gastrointestinal: Normal bowel sounds, Soft and benign, Non-distended, No tenderness Musculoskeletal: No clubbing, No swelling, No tenderness Integumentary: Pressure ulcer Neurological: No focal deficits Assessment & Plan - Problems (Diagnosis) (1) Pneumonia due to COVID-19 virus Current Visit: Yes Status: Acute (2) Sacral decubitus ulcer, stage III Current Visit: Yes Status: Acute (3) Altered mental status Current Visit: Yes Status: Acute (4) Hyperglycemia Current Visit: Yes Status: Acute (5) Malnutrition Current Visit: Yes Status: Acute - Plan Continue with plan of care as mentioned below: 1. Continue with IV steroids; TAPER TO ORAL STEROIDS 2. Monitor inflammatory markers 3. CONTINUE WOUND CARE AND START PHYSICAL THERAPY 4. O2 per protocol 5. Nephrology consultation APPRECIATED; RENAL FUNCTION BACK TO BASELINE 6. Continue with albuterol inhaler therapy; also supportive care 7. Wound care and physical therapy APPRECIATED 8. UNFORTUNATELY, PATIENT HAS NO ABILITY OR PAYOR SOURCE TO GET CARE AT THE HOUSE SO WE WILL HAVE TO EDUCATE THE FAMILY. 9. GI and DVT prophylaxis
--- NOTE | 2020-10-03 09:38 | P.PN ---
Date of Service: 10/03/20 Subjective Family has come by the learn how to do wound care. Continue to educating keep strengthening patient. Anticipate discharge over the next 24-48 hr. Nerologically, patient continues to improve. Review of Systems 10-point ROS is otherwise unremarkable Physical Examination - Vital Signs Reviewed - Physical Exam General: Alert, In no apparent distress, Oriented x3 Cardiovascular: Regular rate/rhythm, Normal S1 S2, No murmurs Gastrointestinal: Normal bowel sounds, Soft and benign, Non-distended, No tenderness Musculoskeletal: No clubbing, No swelling, No tenderness Integumentary: Pressure ulcer Neurological: No focal deficits Assessment & Plan - Problems (Diagnosis) (1) Pneumonia due to COVID-19 virus Current Visit: Yes Status: Acute (2) Sacral decubitus ulcer, stage III Current Visit: Yes Status: Acute (3) Altered mental status Current Visit: Yes Status: Acute (4) Hyperglycemia Current Visit: Yes Status: Acute (5) Malnutrition Current Visit: Yes Status: Acute - Plan Continue with plan of care as mentioned below: 1. Continue on oral steroids and continue to taper 2. Strengthening and arranging for discharge planning. 3. Educating family on wound care 4. Patient not needing O2 any longer. Will Dc 5. Renal function is improved and almost back to baseline 6. GI and DVT prophylaxis
--- NOTE | 2020-10-03 15:50 | PN ---
Date of Progress Note: 10/03/2020 Subjective: The patient was admitted with acute kidney injury and COVID pneumonia, hypernatremia als o. After hydration, kidney function normalized, hypernatremia resolved. Physical Examination: Vital Signs: Blood pressure 142/79, pulse of 80, afebrile. The patient had good urine output. Chest: Clear to auscultation. Heart: S1, S2. Regular. Systolic murmur. Abdomen: Soft, nontender. Extremity: Trace edema. Neuro: No focality. Laboratory Data: H and H 14.. Sodium 140, potassium 4.5, bicarb 26, BUN 32, creatinine 0.5, justino cium 7.7, phosphorus 2.5, magnesium 2.1. Current Medications: The patient on include; 1.Nystatin. 2.Lovenox. 3.Lisinopril. 4.Zinc sulfate. 5.Pepcid. Assessment And Plan: 1.Acute kidney injury secondary to prerenal, recovered, resolved. 2.Hypernatremia secondary to depletion, resolved. Acceptable sodium level. 3.COVID pneumonia. Continue supportive care. 4.Deconditioning. We will follow up with the primary. SANIYA Voice ID: [id number] Report ID: [id number]
[2020-10-03] MEDS: TRAMADOL HCL 50 MG TAB PO PRN (20:27)
--- NOTE | 2020-10-04 06:31 | P.PN ---
Subjective Date of Service: 10/05/20 Primary Care Provider: Unknown Chief Complaint: Shortness of breath Subjective: Other (she reports minimal shortness of breath) Physical Examination - Vital Signs Temperature: 97.8 F Blood Pressure: 168/74 Pulse: 77 Respirations: 20 Pulse Ox (%): 97 - Physical Exam General: Other (appears as her stated age ) HEENT: Atraumatic, Normocephalic Neck: Supple, JVD not distended Respiratory: Other (symmetric chest expansion) Cardiovascular: No rubs, No murmurs Gastrointestinal: Soft and benign, Non-distended Musculoskeletal: No clubbing Urinary: Other (no bladder distention) External genitalia: Deferred Rectal: Deferred - Studies Medications List Reviewed: Yes Assessment And Plan - Plan 1. Acute kidney injury 2/2 prerenal azotemia, nonoliguric acute tubular necrosis associated with dehydration. Resolved. SCr imrpoved to 0.7. Baseline serum creatinine was previously 1.2 (CKD3) in November 2018. [place] by mouth fluid intake. Monitor renal panel. 2. Hypernatremia. Resolved. Encourage po fluid intake as able. 3. COVID pneumonia. Mngt per primary team. 4. DM, Management per primary team. 5. Dispo. May dc from renal standpoint. Will sign off today. Pls call for any questions.
[2020-10-04] MEDS: INSULIN -REGULAR HUMAN 50 UNIT/0.5 ML ML SQ SCH ×4 (07:30→21:00)
[2020-10-04 08:32] LABS: Phosphorus 2.8 mg/dL (2.5-4.9); Potassium 4.3 mmol/L (3.5-5.1)
[2020-10-04] MEDS: GLUCERNA SHAKE 237 ML CAN PO SCH ×2 (09:00→21:00)
[2020-10-04] MEDS: NYSTATIN PWDR 100000 UNIT/GM TOP SCH ×2 (09:00→21:00)
[2020-10-04] MEDS: THIAMINE 200 MG/2 ML INJ IVP SCH (09:00)
[2020-10-04] MEDS: predniSONE 20 MG TAB PO SCH ×2 (09:00→10:02)
[2020-10-04] MEDS: JUVEN PACKET PO SCH ×2 (09:00→21:00)
[2020-10-04] MEDS: ENOXAPARIN 40 MG/0.4 ML SQ SCH (09:00)
[2020-10-04] MEDS: MEDIHONEY 44 ML TOPICAL TUBE TOP SCH (10:02)
[2020-10-04] MEDS: ZINC SULFATE 220 MG CAP PO SCH (10:03)
[2020-10-04] MEDS: VITAMIN D 1000 UNIT TAB PO SCH (10:03)
[2020-10-04] MEDS: lisinopriL 10 MG TAB PO SCH (10:03)
[2020-10-04] MEDS: FAMOTIDINE 20 MG TAB PO SCH ×2 (10:04→21:06)
[2020-10-04] MEDS: ASCORBIC ACID 500 MG TABLET PO SCH ×4 (10:04→21:07)
[2020-10-04] MEDS: TRAMADOL HCL 50 MG TAB PO PRN ×2 (14:13→21:06)
[2020-10-04] MEDS: ESCITALOPRAM 20 MG TAB PO SCH (21:05)
--- NOTE | 2020-10-05 07:10 | P.PN ---
Subjective Date of Service: 10/05/20 Primary Care Provider: Unknown Chief Complaint: Shortness of breath Physical Examination - Vital Signs Temperature: 97.8 F Blood Pressure: 168/74 Pulse: 77 Respirations: 20 Pulse Ox (%): 97 - Studies Medications List Reviewed: Yes Assessment And Plan - Plan 1. Acute kidney injury 2/2 prerenal azotemia, nonoliguric acute tubular necrosis associated with dehydration and manifested by hypernatremia. SCr imrpoved to 0.9. Baseline serum creatinine was previously 1.2 (CKD3) in November 2018. [place] by mouth fluid intake. monitor renal panel. 2. Hypernatremia. Resolved. Weight 90.9 kg. Total body water 40.9 L. liberal by mouth fluid intake. 3. COVID pneumonia. Mngt per primary team. 4. DM, management per primary team. 5. Dispo. Dc plan to home ongoing. 1. Acute kidney injury secondary to prerenal, recovered, resolved. 2. Hypernatremia secondary to depletion, resolved. Acceptable sodium level. 3. COVID pneumonia. Continue supportive care. 4. Deconditioning. We will follow up with the primary. Physician Review Additional Text: COVID: Positive, unvaccinated Initial Chest x-ray: COMPARISON: Chest Single View dated 11/16/2018; CHEST SINGLE VIEW dated 11/13/2012; CHEST SINGLE VIEW dated 02/04/2012 FINDINGS: Moderate patchy airspace disease is present bilaterally. Atheroscl erosis. The heart size is within normal limits.No acute osseous abnormality. No significant pleural effusions or pneumothorax. IMPRESSION: Moderate bilateral airspace disease concerning for multifocal pneumonia. Renal US: COMPARISON: ABDOMINAL EXAM LIMITED dated 11/14/2012 FINDINGS: Both kidneys are normal in size, shape and echotexture. The right kidney measures 9.6 x 5.5 x 4.7 cm. No hydronephrosis, focal mass or perinephric fluid. The left kidney measures 9.6 x 4.5 x 4.5 cm. No hydronephrosis, focal mass or perinephric fluid. The urinary bladder is incompletely distended without gross abnormality seen. IMPRESSION: Unremarkable renal sonogram. Follow up CXR: COMPARISON: Chest Single View dated 09/24/2020; Chest Single View dated 11/16/2018; CHEST SINGLE VIEW dated 11/13/2012; CHEST SINGLE VIEW dated 02/04/2012 FINDINGS: Portable technique limits examination quality. Since 09/24/2020, mild worsening is seen in bilateral pulmonary opacities. The heart is normal in size. No displaced fractures.Aortic atherosclerosis. IMPRESSION: Mild worsening is seen in lung aeration since 09/24/2020. Physical Exam: GENERAL: Patient alert, cooperative. Patient is Urdu-speaking. Patient does not appear to be well kept. VITAL SIGNS: Reviewed HEENT: Head is normocephalic and atraumatic. Extraocular muscles are intact. Pupils are equal, round, and reactive to light and accommodation. Mucous membranes noted NECK: Supple. No carotid bruits. No lymphadenopathy or thyromegaly. LUNGS: Better air movement bilateral. Currently on 3 L per nasal cannula. HEART: Regular rate and rhythm, no appreciable gallops, rubs, murmurs or extra heart sounds ABDOMEN: Soft, nontender, and nondistended. Positive bowel sounds. No hepatosplenomegaly was noted. EXTREMITIES: Without any cyanosis, clubbing, rash, lesions or peripheral edema. NEUROLOGIC: Patient alert, cooperative. Good range of motion. SKIN: Some breakdown of skin to the buttocks region. Impression: Dyspnea secondary to bilateral COVID-19 pneumonia with hypoxia Acute renal injury with hypernatremia suspect dehydration likely with chronic renal disease stage 3 Rheumatoid arthritis on chronic steroids HTN UTI Hyperglycemia suspect underlying diabetes mellitus type 2 Debility Plan: Dyspnea secondary to bilateral COVID-19 pneumonia with hypoxia: Patient improved since yesterday. Will continue with oxygen to maintain sats above 93%. Patient currently on 3 L per nasal cannula. Will continue with IV Solu-Medrol and vitamin supplementation. Continue with D5W. Physical therapy and Occupational Therapy ordered. Patient with underlying rheumatoid arthritis, hypertension. Continue with Rocephin for UTI.Encourage incentive spirometer, proning, ambulation. Spoke with family concerning plan of care. Likely home at discharge Acute renal injury with hypernatremia suspect dehydration likely with chronic renal disease stage 3: Continue with D5W. Encourage oral intake. Nephrology consulted to help assist. Rheumatoid Arthritis on chronic steroids: Patient has been seen by a doctor in [place]. Patient is a resident of the [facility]. Will provide medication for pain. Patient may have been taking chronic steroids. HTN: Continue lisinopril. Will monitor and adjust appropriately. UTI, urine culture positive for E Coli: Change to Ceftin. Blood culture positive likely contaminant. Hyperglycemia suspect underlying diabetes mellitus type 2: A1c 6.3. Continue with diabetic diet. Accu-Cheks to be monitored. Sliding scale in place. Debility: PT reports debility. Will check with family to see if baseline. Will discuss with social service. Code Status: Full Code DVT prophylaxis: Lovenox Advanced Care Planning-30 minutes: Home at discharge vs Inpatient rehab. Spoke to family. She [place] papers to indicate [place]. She may not have insurance. Son will talk to Brother to see if she has insurance.
[2020-10-05] MEDS: INSULIN -REGULAR HUMAN 50 UNIT/0.5 ML ML SQ SCH ×2 (07:30→11:30)
[2020-10-05] MEDS: JUVEN PACKET PO SCH (09:00)
[2020-10-05] MEDS ORDERED: THIAMINE HCL 100 MG TABLET PO SCH (09:00)
[2020-10-05] MEDS: NYSTATIN PWDR 100000 UNIT/GM TOP SCH (09:00)
[2020-10-05] MEDS: GLUCERNA SHAKE 237 ML CAN PO SCH (09:00)
[2020-10-05] MEDS: ENOXAPARIN 40 MG/0.4 ML SQ SCH (09:00)
--- NOTE | 2020-10-05 09:59 | P.PN ---
Date of Service: 10/04/20 Subjective Patient is improving. Continuing with wound care and physical therapy. Son came by and was able the learned how to do some of the treatments. Review of Systems 10-point ROS is otherwise unremarkable Physical Examination - Vital Signs Reviewed - Physical Exam General: Alert, In no apparent distress, Oriented x3 Cardiovascular: Regular rate/rhythm, Normal S1 S2, No murmurs Gastrointestinal: Normal bowel sounds, Soft and benign, Non-distended, No tenderness Musculoskeletal: No clubbing, No swelling, No tenderness Integumentary: Pressure ulcer Neurological: No focal deficits Assessment & Plan - Problems (Diagnosis) (1) Pneumonia due to COVID-19 virus Current Visit: Yes Status: Acute (2) Sacral decubitus ulcer, stage III Current Visit: Yes Status: Acute (3) Altered mental status Current Visit: Yes Status: Acute (4) Hyperglycemia Current Visit: Yes Status: Acute (5) Malnutrition Current Visit: Yes Status: Acute - Plan Continue with plan of care as mentioned below: 1. Arrange for Dc planning and continue with tapering the steroids 2. Strengthening and arranging for discharge planning. 3. Educating family on wound care 4. Patient not needing O2 any longer. Will Dc 5. Renal function is improved and almost back to baseline 6. GI and DVT prophylaxis
[2020-10-05] MEDS: lisinopriL 10 MG TAB PO SCH (10:26)
[2020-10-05] MEDS: FAMOTIDINE 20 MG TAB PO SCH (10:27)
[2020-10-05] MEDS: VITAMIN D 1000 UNIT TAB PO SCH (10:27)
[2020-10-05] MEDS: ESCITALOPRAM 20 MG TAB PO SCH (10:27)
[2020-10-05] MEDS: predniSONE 20 MG TAB PO SCH (10:28)
[2020-10-05] MEDS: ZINC SULFATE 220 MG CAP PO SCH (10:28)
[2020-10-05] MEDS: ASCORBIC ACID 500 MG TABLET PO SCH ×2 (10:28→13:00)
[2020-10-05] MEDS: MEDIHONEY 44 ML TOPICAL TUBE TOP SCH (10:31)
[2020-10-05 13:45] VITALS: O2SAT 94
[2020-10-05 14:49] VITALS: BP 168/74; TEMP 97.8
--- NOTE | 2020-10-09 06:12 | P.DS ---
Discharge Date: 10/05/20 Primary Care Provider: Unknown Disposition: ROUTINE DISCHARGE Discharge Condition: GOOD Reason for Admission: Shortness of breath - Problems (1) Pneumonia due to COVID-19 virus Status: Acute (2) Sacral decubitus ulcer, stage III Status: Acute (3) Altered mental status Status: Acute (4) Hyperglycemia Status: Acute (5) Malnutrition Status: Acute Brief History of Present Illness: Patient is a 70-year-old female was brought in by EMS due to increasing shortness of breath. Patient is a poor historian. She is Telugu-speaking. Patient reports 2 children sick with Covid. She reports having symptoms of weakness, cough, shortness of breath over 3 weeks. She is unvaccinated for COVID-19. Patient was brought in by EMS due to worsening symptoms. In the ER patient was evaluated. Chest x-ray shows evidence of possible COVID- 19 pattern. Ferritin 715, CRP 99. Procalcitonin 0.49. White count 9.1, hemoglobin 14. Platelet count 348. Lactic acid normal. Sodium 152, potassium 3.9. Chloride 123. BUN of 55, creatinine 1.17 with a GFR 46. Glucose 97. Patient given IV steroids in the emergency room. Patient admitted for treatment. Hospital Course: Patient has done well during hospitalization. We taught patient how to do wound care in her family came and visited. We did physical therapy. Her strength is improving. We encouraged family to get her out of bed regularly. We taught him how to do the wound care. She is clinically stable for discharge with outpatient followup. Vital Signs/Physical Exam: Temp Pulse Resp BP Pulse Ox 97.8 F 77 20 168/74 H 97 10/05/20 14:50 10/05/20 14:50 10/05/20 14:50 10/05/20 14:50 10/05/20 14:50 General: Alert, In no apparent distress, Oriented x3 Laboratory Data at Discharge: WBC 8.20 K/uL (4.3-10.9) D 10/01/20 05:55 Hgb 14.1 g/dL (12.0-15.0) 10/01/20 05:55 Hct 43.0 % (36.0-45.0) 10/01/20 05:55 Plt Count 186 K/uL (152-406) 10/01/20 05:55 PT 14.1 SECONDS (9.5-12.5) H 09/24/20 05:15 INR 1.22 09/24/20 05:15 Sodium 141 mmol/L (136-145) 10/04/20 08:02 Potassium 4.3 mmol/L (3.5-5.1) 10/04/20 08:02 BUN 30 mg/dL (7-18) H 10/04/20 08:02 Creatinine 0.65 mg/dL (0.55-1.3) 10/04/20 08:02 Glucose 109 mg/dL (74-106) H 10/04/20 08:02 Uric Acid 5.0 mg/dL (2.6-6.0) 09/27/20 06:32 Phosphorus 2.8 mg/dL (2.5-4.9) 10/04/20 08:02 Magnesium 2.0 mg/dL (1.8-2.4) 10/04/20 08:02 Total Bilirubin 0.3 mg/dL (0.2-1.0) 09/28/20 05:46 AST 25 U/L (15-37) 09/28/20 05:46 ALT 25 U/L (12-78) 09/28/20 05:46 Alkaline Phosphatase 50 U/L (45-117) 09/28/20 05:46 Home Medications: Calcium Carbonate/Vitamin D3 [Caltrate 600 + D Tablet] 1 each PO DAILY 09/25/20 Cloropron 150 mg PO DAILY 09/25/20 Leflunomide 20 mg PO DAILY 09/25/20 lisinopriL [Lisinopril] 10 mg PO BID* 09/25/20 predniSONE [Deltasone] 5 mg PO DAILY 09/25/20 Ascorbic Acid [Vitamin C*] 500 mg PO QID #60 tablet 10/05/20 Cholecalciferol (Vitamin D3) [Vitamin D 1000 Iu Tab*] 4,000 unit PO DAILY #30 tab 10/05/20 Glucerna Shake [Glucerna*] 237 ml PO BID #60 can 10/05/20 Cosmo [Cosmo*] 1 pkt PO BID #60 powd.pack 10/05/20 Medihoney [Medihoney Woundcare Gel*] 1 appl TOP DAILY #1 tube 10/05/20 Nystatin Powder [Mycostatin (Powder)*] 1 appl TOP BID #60 btl 10/05/20 lisinopriL [Prinivil*] 10 mg PO DAILY #30 tab 10/05/20 predniSONE [Prednisone*] 20 mg PO BID #20 tab 10/05/20 New Medications: Glucerna Shake [Glucerna*] 237 ml PO BID #60 can Cosmo [Cosmo*] 1 pkt PO BID #60 powd.pack Medihoney [Medihoney Woundcare Gel*] 1 appl TOP DAILY #1 tube Nystatin Powder [Mycostatin (Powder)*] 1 appl TOP BID #60 btl predniSONE [Prednisone*] 20 mg PO BID #20 tab lisinopriL [Prinivil*] 10 mg PO DAILY #30 tab Ascorbic Acid [Vitamin C*] 500 mg PO QID #60 tablet Cholecalciferol (Vitamin D3) [Vitamin D 1000 Iu Tab*] 4,000 unit PO DAILY #30 tab Physician Discharge Instructions: OK TO DC IV AND DC HOME FOLLOW-UP WITH PRIMARY CARE PROVIDER IN 1-2 WEEKS RETURN TO THE ER IF symptoms worsens CALL or TEXT DR. BARRON AT [phone] IF ANY QUESTIONS REGARDING HOSPITAL STAY. PLEASE CALL THE FLOOR AT [phone] IF ANY MEDICATION OR NURSING QUESTIONS. Diet: ADA (Heart healthy diet) Activity: Fall precautions Followup: NONE,NONE [Primary Care Provider] - Time spent managing pt's care (in minutes): 35
== END 2020-10-05 16:15 | disposition home or self-care (01) | DRG 177 ==
LOC: ER 01:49 → ERHOLD 07:04 → 4TH 22:55
PROVIDERS: ADMIT Family Medicine; ATTEND Family Medicine
DX: U07.1 COVID-19 (principal); L89.323 Pressure ulcer of left buttock, stage 3; L89.313 Pressure ulcer of right buttock, stage 3; L89.223 Pressure ulcer of left hip, stage 3; J12.82 Pneumonia due to coronavirus disease 2019; L89.153 Pressure ulcer of sacral region, stage 3; N17.0 Acute kidney failure with tubular necrosis; E87.0 Hyperosmolality and hypernatremia; E46 Unspecified protein-calorie malnutrition; N39.0 Urinary tract infection, site not specified; E86.0 Dehydration; E11.65 Type 2 diabetes mellitus with hyperglycemia; Z68.29 Body mass index [BMI] 29.0-29.9, adult; I12.9 Hypertensive chronic kidney disease with stage 1 through stage 4 chronic kidney disease, or unspecified chronic kidney disease; E11.22 Type 2 diabetes mellitus with diabetic chronic kidney disease; N18.30 Chronic kidney disease, stage 3 unspecified; R09.02 Hypoxemia; R06.00 Dyspnea, unspecified; B96.20 Unspecified Escherichia coli [E. coli] as the cause of diseases classified elsewhere; R53.81 Other malaise; M06.9 Rheumatoid arthritis, unspecified; Z79.52 Long term (current) use of systemic steroids; E83.42 Hypomagnesemia; I25.10 Atherosclerotic heart disease of native coronary artery without angina pectoris; Z95.5 Presence of coronary angioplasty implant and graft
CPT/HCPCS: 36415; 70551; 71045; 76770; 80048; 80053; 80069; 80076; 81001; 82728; 82947; 83036; 83605; 83735; 83880; 84100; 84145; 84165; 84439; 84443; 84484; 84550; 85025; 85610; 86140; 86334; 87040; 87077; 87086; 87088; 87186; 87205; 92610; 93005; 94010; 96374; 97110; 97112; 97116; 97161; 97530; 99251; 99285; J0696; J1650; J2920; J2930; J3411; J7042; J7512; J7799; U0003

== ENCOUNTER 2022-02-13 16:09 | Observation (INO) | payer SELFPAY ==
[2022-02-13] MEDS ORDERED: VANCOMYCIN 1 GM/VIAL ONE (17:00)
[2022-02-13] MEDS ORDERED: NA CHLORIDE 0.9% 250 ML ONE (17:00)
[2022-02-13 17:08] LABS: Hematocrit 37.1 % (36.0-45.0); Lymphocytes % 36.2 % (15.3-44.8); MCV 87.2 fL (80-100); MPV 8.9 fL (7.6-11.3); RBC Red Blood Cell Count 4.26 M/uL (3.86-4.86)
--- NOTE | 2022-02-13 17:10 | RAD REPORT ---
EXAM DESCRIPTION: RAD - Foot Left 3 View - 02/13/2022 4:59 pm CLINICAL HISTORY: PAIN COMPARISON: No comparisons FINDINGS: Diffuse osteopenia is seen. Soft tissue swelling is seen in the forefoot along the dorsum. Moderate plantar calcaneal spur. Mild vascular atherosclerosis.
[2022-02-13 17:22] LABS: Potassium 3.3 mmol/L (3.5-5.1)
--- NOTE | 2022-02-13 17:31 | EDPHYS ---
Physician Documentation [facility] Name: Mell Leo Age: 71 yrs Sex: Female : 1950 Arrival Date: 02/13/2022 Time: 16:11 Bed 24 Private MD: ED Physician Oswaldo Banerjee HPI: 02/13 16:27 This 71 yrs old Female presents to ER via Wheelchair with complaints of Foot ms3 Pain. 16:27 The patient presents with an abrasion. The complaints affect the. 71-year-old female ms3 with past medical history of hypertension, coronary artery disease, arthritis presents after hitting her second left toe on a box fan 2 weeks ago. Patient states 3 to 4 days ago her left second toe began swelling and became painful. Patient rates her pain an 8/10. Patient dates the pain is worse with walking. Patient denies fevers or chills. Historical: - Allergies: 16:18 No Known Allergies; ll1 - PMHx: 16:18 Hypertension; CAD; Arthritis; ll1 - PSHx: 16:18 section; ll1 - Immunization history:: Client reports receiving the 2nd dose of the Covid vaccine. - Social history:: Smoking status: Patient denies any tobacco usage or history of. ROS: 16:27 Skin: Positive for abrasion(s), cellulitis. ms3 17:32 Constitutional: Negative for fever, and chills. ms3 17:32 All other systems are negative. Exam: 16:27 Constitutional: This is a well developed, well nourished patient who is awake, alert, ms3 and in no acute distress. Head/Face: Normocephalic, atraumatic. Neck: Trachea midline, no cervical lymphadenopathy. Supple, full range of motion without nuchal rigidity, or vertebral point tenderness. No Meningismus. Cardiovascular: Regular rate and rhythm with a normal S1 and S2. No gallops, murmurs, or rubs. Normal PMI, no JVD. No pulse deficits. Respiratory: Lungs have equal breath sounds bilaterally, clear to auscultation and percussion. No rales, rhonchi or wheezes noted. No increased work of breathing, no retractions or nasal flaring. 16:27 Musculoskeletal/extremity: Left second digit with proximal tenderness to palpation. 16:27 Skin: Left second third fourth and fifth toes with erythema. Left second toe with abrasion with purulent drainage.. Vital Signs: 16:19 BP 114 / 64; Pulse 94; Resp 18; Temp 98.2; Pulse Ox 99% ; Pain 8/10; ll1 19:12 BP 115 / 51; Pulse 88; Resp 18; Pulse Ox 97% on R/A; Pain 0/10; mb9 20:32 BP 114 / 57; Pulse 94; Resp 18; Pulse Ox 100% on R/A; mb9 MDM: 16:25 Patient medically screened. ms3 16:27 Differential diagnosis: fracture, sprain, cellulitis. ms3 17:31 Data reviewed: vital signs, nurses notes, lab test result(s), radiologic studies, and ms3 as a result, I will admit patient. ED course: Discussed the case with Dr. Sepulveda and will place patient as inpatient admission. Patient given IV vancomycin in the emergency department. Discussed plan for admission with patient and her son. They understand and agree with plan. All questions were answered.. 02/13 16:26 Order name: CBC with Diff; Complete Time: 17:16 ms3 02/13 16:26 Order name: BMP; Complete Time: 17:24 ms3 02/13 16:26 Order name: Foot Left 3 View XRAY; Complete Time: 17:16 ms3 02/13 16:26 Order name: Blood Culture Adult (2) ms3 02/13 17:31 Order name: Lower Extremity Artery Uni Ltd US; Complete Time: 18:29 ms3 02/13 18:37 Order name: SARS RAPID la1 02/13 16:33 Order name: IV Saline Lock; Complete Time: 16:47 mb9 Administered Medications: 17:05 Drug: vancoMYCIN 1 grams Route: IVPB; Infused Over: 2 hrs; Site: left antecubital; mb9 19:07 Follow up: Response: No adverse reaction; IV Status: Completed infusion mb9 19:11 Drug: Potassium Effervescent Tablet 50 mEq Route: PO; mb9 20:33 Follow up: Response: No adverse reaction mb9 Disposition Summary: 02/13/22 17:30 Hospitalization Ordered Location: Telemetry/MedSurg (Inpatient) ms3 Condition: Stable ms3 Problem: new ms3 Symptoms: are unchanged ms3 Bed/Room Type: Standard ms3 Provider: Rell Sepulveda(02/13/22 17:57) la1 Hospitalization Status: Observation(02/13/22 18:08) ms3 Room Assignment: 412(02/13/22 19:52) cg Diagnosis - Abrasion, left foot ms3 - Left foot cellulitis ms3 Forms: - Medication Reconciliation Form ms3 - SBAR form ms3 Signatures: Dispatcher [employer] EDMS Houston Carrizales, SALES AND MARKETING DIRECTOR-C SALES AND MARKETING DIRECTOR-Cla1 Esther Adams RN RN cg Yasmine Guerra RN RN ll1 Oswaldo Banerjee DO DO ms3 Brooke Ca RN RN mb9 Corrections: (The following items were deleted from the chart) 17:57 17:30 Amador Cabral ms3 la1 18:08 17:30 Inpatient Admission ms3 ms3 19:52 17:30 ms3 cg
--- NOTE | 2022-02-13 17:31 | ER ---
Nurse's Notes [facility] Name: Mell Leo Age: 71 yrs Sex: Female : 1950 Arrival Date: 02/13/2022 Time: 16:11 Bed 24 Private MD: Diagnosis: Abrasion, left foot;Left foot cellulitis Presentation: 02/13 16:19 Chief complaint: Patient states: Hit L foot on a fan 2 weeks ago. 3-4 days ago her toes ll1 started to get painful and red. Coronavirus screen: Vaccine status: Patient reports receiving the 2nd dose of the covid vaccine. Client denies travel out of the [place] in the last 14 days. At this time, the client does not indicate any symptoms associated with coronavirus-19. Ebola Screen: Patient denies travel to an Ebola-affected area in the 21 days before illness onset. Initial Sepsis Screen: Does the patient meet any 2 criteria? HR > 90 bpm. No. Patient's initial sepsis screen is negative. Does the patient have a suspected source of infection? Yes: Skin breakdown/wound. Risk Assessment: Do you want to hurt yourself or someone else? Patient reports no desire to harm self or others. Onset of symptoms was January 29, 2022. 16:19 Method Of Arrival: Wheelchair ll1 16:19 Acuity: ELIAS 3 ll1 Triage Assessment: 16:21 General: Appears uncomfortable, Behavior is calm, cooperative, appropriate for age. ll1 Pain: Complains of pain in left foot Quality of pain is described as aching, Aggravated by increased activity, weight bearing. Derm: Derm: Wound noted left foot Wound is abrasions L foot 2nd digit. 16:21 Musculoskeletal: Reports pain in left foot. ll1 Historical: - Allergies: 16:18 No Known Allergies; ll1 - PMHx: 16:18 Hypertension; CAD; Arthritis; ll1 - PSHx: 16:18 section; ll1 - Immunization history:: Client reports receiving the 2nd dose of the Covid vaccine. - Social history:: Smoking status: Patient denies any tobacco usage or history of. Screenin:25 [facility] ED Fall Risk Assessment (Adult) History of falling in the last 3 months, mb9 including since admission Yes- single mechanical fall (1 pt) Confusion or Disorientation No (0 pts) Intoxicated or Sedated No (0 pts) Impaired Gait No (0 pts) Mobility Assist Device Used No (0 pt) Altered Elimination No (0 pt) Score/Fall Risk Level 0 - 2 = Low Risk Oriented to surroundings, Maintained a safe environment. Abuse screen: Denies threats or abuse. Nutritional screening: No deficits noted. Tuberculosis screening: No symptoms or risk factors identified. Assessment: 16:35 General: Appears in no apparent distress. comfortable, Behavior is calm, cooperative, mb9 appropriate for age. Pain: Complains of pain in left foot Pain does not radiate. Pain currently is 0 out of 10 on a pain scale. Quality of pain is described as aching. Neuro: Aguilar Agitation-Sedation Scale (RASS): 0 - Alert and Calm Level of Consciousness is awake, alert, obeys commands, Oriented to person, place, time, situation, Appropriate for age. 16:35 Cardiovascular: Heart tones S1 S2 present Rhythm is regular. Respiratory: Airway is mb9 patent Respiratory effort is even, unlabored, Respiratory pattern is regular, symmetrical, Breath sounds are clear bilaterally. GI: Abdomen is round non-distended. : No signs and/or symptoms were reported regarding the genitourinary system. EENT: No signs and/or symptoms were reported regarding the EENT system. Derm: Skin is healthy with good turgor, is fragile, Skin is dry, Skin is normal, Skin temperature is warm. Musculoskeletal: Swelling present in left foot and second toe. 19:11 Pain: Complains of pain in left foot. Neuro: Level of Consciousness is awake, alert, mb9 obeys commands, Oriented to person, place, time, situation, Appropriate for age. Cardiovascular: Rhythm is regular. Respiratory: Airway is patent Respiratory effort is even, unlabored, Respiratory pattern is regular, symmetrical. 20:31 Reassessment: No changes from previously documented assessment. Neuro: Level of mb9 Consciousness is awake, alert, obeys commands. Cardiovascular: Rhythm is regular. Respiratory: Airway is patent Respiratory effort is even, unlabored, Respiratory pattern is regular, symmetrical. Derm: Skin is normal. Vital Signs: 16:19 BP 114 / 64; Pulse 94; Resp 18; Temp 98.2; Pulse Ox 99% ; Pain 8/10; ll1 19:12 BP 115 / 51; Pulse 88; Resp 18; Pulse Ox 97% on R/A; Pain 0/10; mb9 20:32 BP 114 / 57; Pulse 94; Resp 18; Pulse Ox 100% on R/A; mb9 ED Course: 16:11 Patient arrived in ED. rg4 16:14 Oswaldo Banerjee DO is Attending Physician. ms3 16:21 Triage completed. ll1 16:21 Arm band placed on. ll1 16:21 Patient has correct armband on for positive identification. Placed in gown. Bed in low mb9 position. Call light in reach. Side rails up X 1. Client placed on continuous cardiac and pulse oximetry monitoring. NIBP monitoring applied. 16:24 Brooke Ca, PAWEL is Primary Nurse. mb9 16:47 Inserted saline lock: 20 gauge in left antecubital area, using aseptic technique. Blood mb9 collected. 17:00 Foot Left 3 View XRAY In Process Unspecified. EDMS 17:10 Blood Culture Adult (2) Sent. mb9 17:26 Amador Cabral MD is Hospitalizing Provider. ms3 17:57 Rell Sepulveda MD is Hospitalizing Provider. la1 18:16 Lower Extremity Artery [facility] US In Process Unspecified. EDMS 18:47 SARS RAPID Sent. em6 20:32 No provider procedures requiring assistance completed. mb9 20:33 Patient admitted, IV remains in place. mb9 Administered Medications: 17:05 Drug: vancoMYCIN 1 grams Route: IVPB; Infused Over: 2 hrs; Site: left antecubital; mb9 19:07 Follow up: Response: No adverse reaction; IV Status: Completed infusion mb9 19:11 Drug: Potassium Effervescent Tablet 50 mEq Route: PO; mb9 20:33 Follow up: Response: No adverse reaction mb9 Medication: 20:33 VIS not applicable for this client. mb9 Outcome: 17:30 Decision to Hospitalize by Provider. ms3 20:32 Admitted to Tele accompanied by tech, via wheelchair, room 412, with chart, Report mb9 called to PAWEL Martínez 20:32 Condition: stable 20:32 Instructed on the need for admit. 22:07 Patient left the ED. mb9 Signatures: Dispatcher [employer] EDMS Houston Carrizales, MILIEU THERAPIST-C MILIEU THERAPIST-ClaEmily Segura rg4 Yasmine Guerra RN RN ll1 Oswaldo Banerjee DO DO ms3 Nieves Greenwood, RN RN em6 Brooke Ca, RN RN mb9 Corrections: (The following items were deleted from the chart) 16:22 16:21 Derm: gem ll1
--- NOTE | 2022-02-13 18:27 | RAD REPORT ---
EXAM DESCRIPTION: US - Lower Extremity Artery Uni Ltd - 02/13/2022 6:14 pm CLINICAL HISTORY: PAIN Leg pain, claudication COMPARISON: No comparisons FINDINGS: Grayscale, color and power Doppler interrogation of the left lower extremity arterial syst em was performed. Triphasic waveforms are noted to the level of the left popliteal artery. Infrapopliteal vessels demonstrate blunted monophasic waveforms. No complete occlusion evident. IMPRESSION: Moderate infrapopliteal peripheral vascular disease noted.
[2022-02-13] MEDS ORDERED: POTASSIUM 25 MEQ EFFERV TAB ONE (19:11)
[2022-02-13 19:12] LABS: SARS-CoV-2 Antigen Rapid Res Negative (Negative)
--- NOTE | 2022-02-13 19:24 | P.HP ---
Certification for Inpatient Patient admitted to: Observation With expected LOS: <2 Midnights Patient will require the following post-hospital care: None Practitioner: I am a practitioner with admitting privileges, knowledge of patient current condition, hospital course, and medical plan of care. Services: Services provided to patient in accordance with Admission requirements found in Title 42 Section 412.3 of the Code of Federal Regulations Patient History Date of Service: 02/13/22 Reason for admission: Cellulitis left lower extremity History of Present Illness: 71-year-old female with history of CAD, hypertension presents to the emergency department with complaint of left lower extremity pain, concern for infection. She reports that 2 weeks ago she grazed it on a fan and noticed yesterday that she began to have some erythema, increasing pain and swelling in the area. She is evaluated in the emergency department labs were significant for potassium of 3.3, x-ray of the left foot was obtained which revealed diffuse osteopenia is seen. Soft tissue swelling is seen in the forefoot along the dorsum. Moderate plantar calcaneal spur. Mild vascular atherosclerosis. Arterial Doppler was also performed which revealed moderate infrapopliteal peripheral vascular disease noted. No complete occlusion evident. Patient was given IV antibioti csvancomycin in ED, blood cultures were obtained. ED provider assisted nonrotation for cellulitis of left lower extremity. Allergies No Known Allergies Allergy (Verified 11/14/12 02:58) Home Medications: Calcium Carbonate/Vitamin D3 [Caltrate 600 + D Tablet] 1 each PO DAILY 09/25/20 Cloropron 150 mg PO DAILY 09/25/20 Leflunomide 20 mg PO DAILY 09/25/20 lisinopriL [Lisinopril] 10 mg PO BID* 09/25/20 predniSONE [Deltasone] 5 mg PO DAILY 09/25/20 Ascorbic Acid [Vitamin C*] 500 mg PO QID #60 tablet 10/05/20 Cholecalciferol (Vitamin D3) [Vitamin D 1000 Iu Tab*] 4,000 unit PO DAILY #30 tab 10/05/20 Glucerna Shake [Glucerna*] 237 ml PO BID #60 can 10/05/20 Cosmo [Cosmo*] 1 pkt PO BID #60 powd.pack 10/05/20 Medihoney [Medihoney Woundcare Gel*] 1 appl TOP DAILY #1 tube 10/05/20 Nystatin Powder [Mycostatin (Powder)*] 1 appl TOP BID #60 btl 10/05/20 lisinopriL [Prinivil*] 10 mg PO DAILY #30 tab 10/05/20 predniSONE [Prednisone*] 20 mg PO BID #20 tab 10/05/20 - Past Medical/Surgical History Diabetic: No -: Hypertension -: Arthritis -: Arthritis -: "gallbladder issues" -: -: cardiac cath, heart stent Psychosocial/ Personal History: Patient lives at home with a son - Social History Alcohol use: No CD- Drugs: No Caffeine use: Yes Place of Residence: Home Review of Systems 10-point ROS is otherwise unremarkable Musculoskeletal: Foot Pain Physical Examination - Physical Exam General: Alert, In no apparent distress, Oriented x3 HEENT: Atraumatic, PERRLA, Mucous membr. moist/pink, EOMI, Sclerae nonicteric Neck: Supple, 2+ carotid pulse no bruit, No LAD, Without JVD or thyroid abnormality Respiratory: Clear to auscultation bilaterally, Normal air movement Cardiovascular: Regular rate/rhythm, Normal S1 S2 Gastrointestinal: Normal bowel sounds, No tenderness Musculoskeletal: Erythema, Tenderness, Warmth (Left lower extremity) Integumentary: No rashes Neurological: Normal gait, Normal speech, Normal strength at 5/5 x4 extr, Normal tone, Normal affect Lymphatics: No axilla or inguinal lymphadenopathy - Studies Laboratory Data (last 24 hrs) 02/13/22 16:50: Sodium 140, Potassium 3.3 L, BUN 14, Creatinine 0.81, Glucose 105 02/13/22 16:50: WBC 5.60, Hgb 12.3, Hct 37.1, Plt Count 274 Assessment and Plan - Plan Assessment: Left lower extremity cellulitis complicated with moderate infrapopliteal PAD Hypertension History of CAD Arthritis Plan: Left lower extremity cellulitis complicated with moderate infrapopliteal PAD: Continue antibioticsAncef. Repeat CBC in the morning. Blood cultures were obtained. Would benefit with outpatient vascular evaluation for PAD. Hypertension: Continue home medications History of CAD: Continue home medications Arthritis: Continue home medications DVT PPX: Lovenox Code status: Full Discharge Plan: Home Plan to discharge in: 24 Hours - Advance Directives Does patient have a Living Will: No Does patient have a Durable POA for Healthcare: No - Code Status/Comfort Care Code Status Assessed: Yes (Full code) Critical Care: No Time Spent Managing Pts Care (In Minutes): 55
[2022-02-13] MEDS ORDERED: HYDROCODONE/APAP 5/325 MG TAB PO PRN (19:45)
[2022-02-13] MEDS ORDERED: ACETAMINOPHEN 500 MG TAB PO PRN (19:45)
[2022-02-13] MEDS ORDERED: ONDANSETRON 4 MG/2 ML VIAL IV PRN (19:45)
[2022-02-13 22:25] VITALS: BMI 36.9
[2022-02-14] MEDS: CEFAZOLIN 1 GM in NA CHLORIDE 0.9% 50 ML IVPB SCH ×2 (00:25→08:22)
[2022-02-14 03:54] LABS: Hematocrit 34.1 % (36.0-45.0); MCV 87.1 fL (80-100); MPV 9.3 fL (7.6-11.3); RBC Red Blood Cell Count 3.91 M/uL (3.86-4.86)
[2022-02-14 04:06] LABS: Potassium 4.5 mmol/L (3.5-5.1)
[2022-02-14] MEDS ORDERED: INFLUENZA VACCINE (for 6+ mo) 0.5 ML DOSE IMVAC ONE (08:00)
[2022-02-14] MEDS ORDERED: ENOXAPARIN 40 MG/0.4 ML SQ SCH (09:00)
[2022-02-14 10:45] VITALS: O2SAT 90
--- NOTE | 2022-02-14 12:37 | P.DS ---
Admission Date: 02/13/22 Discharge Date: 02/14/22 Disposition: ROUTINE DISCHARGE Discharge Condition: GOOD Reason for Admission: Cellulitis left lower extremity Brief History of Present Illness: 71-year-old female with history of CAD, hypertension presents to the emergency department with complaint of left lower extremity pain, concern for infection. She reports that 2 weeks ago she grazed it on a fan and noticed yesterday that she began to have some erythema, increasing pain and swelling in the area. She is evaluated in the emergency department labs were significant for potassium of 3.3, x-ray of the left foot was obtained which revealed diffuse osteopenia is seen. Soft tissue swelling is seen in the forefoot along the dorsum. Moderate plantar calcaneal spur. Mild vascular atherosclerosis. Arterial Doppler was also performed which revealed moderate infrapopliteal peripheral vascular disease noted. No complete occlusion evident. Patient was given IV antibioticsvancomycin in ED, blood cultures were obtained. Hospital Course: Problem List Left lower extremity cellulitis complicated with moderate infrapopliteal PAD Hypertension History of CAD Arthritis NIDDM2 Patient presented with left 2nd toe abrasion with swelling and erythema, consistent with cellulitis. She was sent to ED by her PCP. Labwork was unremarkable and she was afebrile. She received IV ancef with improvement of her symptoms and significant improvement of erythema. X-ray in ED did not reveal any bone involvement, and on exam, did not appear to be anything more than superficial involvement. She was deemed stable for discharge home, to complete 12 more days of keflex. Return precautions given. Follow up with PCP within 3-5 days. If worsens, would consider adding MRSA coverage, but no suspicion at this time. Her feet were warm and well perfused. Arterial doppler was obtained of her left leg and noted moderate infrapopliteal arterial disease. Recommended discussing further with her PCP to follow up with vascular if this wound does not heal or if she develops further symptoms. Vital Signs/Physical Exam: Temp Pulse Resp BP Pulse Ox 97.7 F 72 16 178/77 H 90 L 02/14/22 08:00 02/14/22 08:00 02/14/22 08:00 02/14/22 08:00 02/14/22 08:00 General: Alert, In no apparent distress, Oriented x3 HEENT: EOMI, Sclerae nonicteric Respiratory: Clear to auscultation bilaterally, Normal air movement Cardiovascular: No edema, Regular rate/rhythm Gastrointestinal: Soft and benign, Non-distended, No tenderness Musculoskeletal: No contractures, No erythema Integumentary: Skin lesion (small superficial laceration on left 2nd toe, minimal erythema) Neurological: Normal speech, Normal strength at 5/5 x4 extr, Normal affect Laboratory Data at Discharge: WBC 4.80 K/uL (4.3-10.9) 02/14/22 03:25 Hgb 11.2 g/dL (12.0-15.0) L D 02/14/22 03:25 Hct 34.1 % (36.0-45.0) L 02/14/22 03:25 Plt Count 228 K/uL (152-406) 02/14/22 03:25 Sodium 142 mmol/L (136-145) 02/14/22 03:25 Potassium 4.5 mmol/L (3.5-5.1) D 02/14/22 03:25 BUN 18 mg/dL (7-18) 02/14/22 03:25 Creatinine 0.78 mg/dL (0.55-1.02) 02/14/22 03:25 Glucose 146 mg/dL (74-106) H 02/14/22 03:25 Home Medications: predniSONE [Prednisone*] 5 mg PO DAILY 09/25/20 Lisinopril/Hydrochlorothiazide [Lisinopril-Hctz 10-12.5 mg Tab] 1 tab PO DAILY 02/13/22 Pentoxifylline 1 tab PO DAILY 02/13/22 Cephalexin [Keflex] 500 mg PO Q6HR 12 Days #48 cap 02/14/22 New Medications: Cephalexin [Keflex] 500 mg PO Q6HR 12 Days #48 cap Physician Discharge Instructions: Patient presented with left 2nd toe abrasion with swelling and erythema, consistent with cellulitis. She was sent to ED by her PCP. Labwork was unremarkable and she was afebrile. She received IV ancef with improvement of her symptoms and significant improvement of erythema. X-ray in ED did not reveal any bone involvement, and on exam, did not appear to be anything more than superficial involvement. She was deemed stable for discharge home, to complete 12 more days of keflex. Return precautions given. Follow up with PCP within 3-5 days. If worsens, would consider adding MRSA coverage, but no suspicion at this time. Her feet were warm and well perfused. Arterial doppler was obtained of her left leg and noted moderate infrapopliteal arterial disease. Recommended discussing further with her PCP to follow up with vascular if this wound does not heal or if she develops further symptoms. Time spent managing pt's care (in minutes): 45
[2022-02-14 12:46] VITALS: TEMP 98.6
[2022-02-14 14:42] VITALS: BP 168/74
== END 2022-02-14 14:30 | disposition home or self-care (01) ==
LOC: ER 16:09 → ERHOLD 18:53 → 4TH 19:57
PROVIDERS: ADMIT Hospitalist; ATTEND Hospitalist
DX: L03.116 Cellulitis of left lower limb (principal); I25.10 Atherosclerotic heart disease of native coronary artery without angina pectoris; I10 Essential (primary) hypertension; M85.872 Other specified disorders of bone density and structure, left ankle and foot; M77.32 Calcaneal spur, left foot; I73.9 Peripheral vascular disease, unspecified; M19.90 Unspecified osteoarthritis, unspecified site; E11.9 Type 2 diabetes mellitus without complications; Z20.822 Contact with and (suspected) exposure to COVID-19
CPT/HCPCS: 36415; 80048; 83036; 85025; 87040; 87070; 87077; 87186; 87205; 87811; 93926; 96365; 96366; 99285; G0378; J0690; J1650; J3370; J7050

== ENCOUNTER 2024-01-13 18:03 | Emergency (ER) | payer OTHER ==
--- OUTSIDE RECORDS SUMMARY | 2024-01-13 18:06 | XMS REPORT | Continuity of Care Document ---
Author Name Unknown Address [address] [facility] [address] [place] [address] [facility] thconnect Address [address] [facility] [address] [facility] [address] [place] [address] Care Team Providers Care Esthetic Dermatologist Name Role Phone Pcp, Patient Does Not Have A Primary Care Physic sylvester EVY PETERSON Attending Clinician Unavailable ELIN PRATER Attending Clinician Unavailabl e LAB90 Attending Clinician Unavailable Ryan Bob Provider Attending Clinician Unavailable Edy Burnham MD Attending Clinician [phone] Jovani Langford DO Attending Clinician [phone] Seth Weems MD Attending Clinician [phone] SETH WEEMS Attending Clinician Unavailable SETH WEEMS Attending Clinician Unavailable JOVANI LANGFORD Admitting Clinician Unavailable Payers Payer Name Policy Type Policy Number Effective Date Expirati on Date Source LIBBY PALOMO [employer]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 94 ON 9 [id number] 2023 00:00:00 Problems Condition Name Condition Details Condition Category Status Onset Date Resolution Date Last Treatment Date Treating Clinician Comments Source Well adult exam Well adult exam Disease Active 2023-02 0-24 00:00: [address] Arlette [address] angiograph y Abnormal cardiac CT angiograph y Disease Active 2023-02 00:00: 00 Arlette Sefamold - Externa l PVD (periphera l vascular disease) PVD (periphera l vascular disease) Disease Active 2023-02 00:00: 00 Arlette Smallold - Externa l Arthritis Arthritis Disease Active Brayan swanson Seybold - Externa l Family history of coronary artery disease Family history of coronary artery disease Disease Active Arlette Seybold - Externa l Hiatal hernia with GERD Hiatal hernia with GERD Disease Active Arlette Seybold - Externa l Obesity Obesity Disease Active Arlette Seybold - Externa l 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 Disease Active Arlette Seybold - Externa l Allergies, Adverse Reactions, Alerts Allergy Name Allergy Type Status Severity Reaction(s) Onset Date Inactive Date Treating Clinician Comments Source NO KNOWN ALLERGIE S Drug Class Active [facility] Social History Social Habit Start Date Stop Date Quantity Comments Source Sexual orientation Andree smith Dakotah - External ASSERTION Not Arlette Claire - External Tobacco use and exposure 2023-12-03 00:00:00 2023-12-03 00:00:00 Smokeless tobacco non-user Arlette Claire - External Alcoholic beverage intake 2023-12-03 00:00:00 2023-12-03 00:00:00 Lifetime non-drinker (finding) Arlette Claire - External History of Social function 2023-12-03 00:00:00 2023-12-03 00:00:00 Arlette Claire - External Education 2023-12-03 00:00:00 2023-12-03 00:00:00 6 Arlette Smallsandra - External Sex 2023-02-18 22:20:04 2023-02-18 22:20:04 Female (finding) Arlette Claire - External Sex assigned at 1950 00:00:00 1950 00:00:00 Arlette famsandra - External Smoking Status Start Date Stop Date Source Tobacco smoking consumption unknown [facility] Never smoked tobacco Arlette Claire - External Medications Ordered Medication Name Filled Medication Name Start Date Stop Date Current Medication? Ordering Clinician Indication Dosage Frequency Signature (SIG) Comments Components Source Pantoprazol e Sodium 40 MG oral Tablet Delayed Response 2023-02 00:00: 00 Yes [id number] 40mg QD Take 1 tablet (40 mg total) by mouth daily. Arlette best Aspirin 81 MG oral Tablet Delayed Response 2023-02 00:00: 00 Yes [id number] 81mg QD Take 1 tablet (81 mg total) by mouth daily. Arlette best ketorolac (TORADOL) injection 15 mg 10-10 05:30: 00 10-10 04:27 :00 No 15mg 15 mg, Slow IV Push, ONCE, 1 dose, On 10/11/23 at 0030, DALIA [facility] NaCl 0.9% (NS) bolus infusion 500 mL 10-10 03:45: 00 10-10 04:00 :00 No 500mL at 999 mL/hr, 500 mL, IV Infusion, ONCE, 1 dose, On 10/10/23 at 2245, STAT [facility] NaCl 0.9% (NS) bolus infusion 500 mL 10-10 00:30: 00 10-10 02:00 :00 No 500mL at 999 mL/hr, 500 mL, IV Infusion, ONCE, 1 dose, On 10/10/23 at 1930, DALIA [facility] methocarbam oL 500 mg tablet 10-10 00:00: 00 Yes [id number] 500mg Take 1 tablet by mouth every 6 (six) hours as needed for Pain (scale 7-10) (MUSCLE SPASM). [facility] cefdinir 300 mg capsule 10-10 00:00: 00 Yes [id number] 300mg Take 1 capsule by mouth every 12 (twelve) hours. [facility] HYDROcodone -acetaminop hen 5-325 mg tablet 10-10 00:00: 00 10-18 04:59 :00 No [id number] 1{tbl} Take 1 tablet by mouth every 4 (four) hours as needed for Pain (scale 7-10) for up to 7 days. Indication s: acute pain [facility] iopamidol (ISOVUE 370-500 mL) injection 90 mL 10-10 00:00: 00 10-10 00:15 :00 No [id number] 90mL 90 mL, Intravenou s, ONCE, 1 dose, On 10/10/23 at 1915, Routine [facility] cefTRIAXone (ROCEPHIN) 1,000 mg in NaCl 0.9% (NS) 100 mL MINI-BAG 10-10 00:00: 00 10-10 01:05 :00 No 1000mg 1,000 mg, IV Piggyback, ONCE, 1 dose, On 10/10/23 at 1900, Administer over 30 Minutes, 100 mL, Reason for Anti-Infec tive: Documented Infection, Documented Infection Site: Urine, Duration of Therapy: Once (ED) [facility] morpHINE (4 mg/mL) injection 4 mg 10-09 23:45: 00 10-10 01:00 :00 No 4mg 4 mg, Slow IV Push, ONCE, 1 dose, On 10/10/23 at 1845, STAT [facility] NaCl 0.9% (NS) bolus infusion 500 mL 10-09 23:00: 00 10-10 05:00 :00 No 500mL at 999 mL/hr, 500 mL, IV Infusion, ONCE, 1 dose, [facility]23 [facility] 1800[facility] (ZOFRAN (PF)) injection 4 mg 10-09 22:15: 00 10-09 22:15 :00 No 4mg 4 mg, Slow IV Push, ONCE, 1 dose, On 10/10/23 at 1715, [facility] morpHINE (4 mg/mL) injection 4 mg 10-09 22:12: 00 10-09 22:15 :00 No 4mg 4 mg, Slow IV Push, ONCE, 1 dose, On 10/10/23 at 1715, STAT [facility] acetaminoph en-codeine (TYLENOL-CO DEINE #3) 300-30 mg tablet 05-10 00:00: 00 Yes 1{tbl} Take 1 Tab by mouth every 4 (four) hours as needed for Pain (scale 4-6). [facility] traMADOL (ULTRAM) 50 mg tablet 05-10 00:00: 00 Yes 50mg Take 1 Tab by mouth every 6 (six) hours as needed for Pain (scale 7-10). [facility] Immunizations Ordered Immunization Name Filled Immunization Name Date Status Comments Source AFLURIA TRIVALENT PF(0.5mL) Unknown Completed Arlette [email or web address] - External Pneumococcal Vaccine, Polysaccharide Unknown Completed Arlette SmallAddressReport d - External Covid-19 Vaccine (Hexagram 49), Mrna-lnp, Garett Protein, Pf, 30mcg/0.3ml,IM Unknown Completed Arlette SmallAddressReport d - External Vital Signs Vital Name Observation Time Observation Value Comments S ourmarisa Systolic blood pressure 2023-12-03 20:46:00 133 mm[Hg] Arlette Reynolds ld - External Diastolic blood pressure 2023-12-03 20:46:00 78 mm[Hg] Arlette Reynolds ld - External Body temperature 2023-12-03 20:46:00 36.83 Kristina Arlette Dakotah - External Respiratory rate 2023-12-03 20:46:00 16 /min Arlette Claire - External Body height 2023-12-03 20:46:00 165.1 cm Tiffanie wyatt emma - External Body weight 2023-12-03 20:46:00 92.08 kg Tiffanie Claire - External BMI 2023-12-03 20:46:00 33.78 kg/m2 Tiffanie wyatt emma - External Oxygen saturation in Arterial blood by Pulse oximetry 2023-12-03 20:46:00 100 /min Arlette chang - External Systolic blood pressure 2023-10-11 05:45:00 124 mm[Hg] [facility] Diastolic blood pressure 2023-10-11 05:45:00 71 mm[Hg] [facility] Heart rate 2023-10-11 05:45:00 80 /min [facility] Respiratory rate 2023-10-11 05:45:00 22 /min [facility] Oxygen saturation in Arterial blood by Pulse oximetry 2023-10-11 05:45:00 96 /min [place] [facility] Body temperature 2023-10-10 23:00:00 36.83 Kristina [facility] BMI 2023-10-10 22:03:00 30.90 kg/m2 [facility] Body height 2023-10-10 22:03:00 162.6 cm [facility] Body weight 2023-10-10 22:03:00 81.647 kg [facility] Procedures Procedure Date / Time Performed Performing Clinicia n Source TROPONIN I 2023-10-11 03:50:00 Seth Weems [facility] CT ANGIOGRAM CHEST 2023-10-11 00:02:00 Jovani Langford [facility] XR CHEST 1 VW 2023-10-10 22:56:00 Jovani Langford [facility] TROPONIN I 2023-10-10 22:39:00 Jovani Langford [facility] COMP. METABOLIC PANEL ([id number]) 2023-10-10 22:39:00 Jovani Langford [facility] CBC WITH DIFF 2023-10-10 22:39:00 Jovani Langford [facility] URINALYSIS 2023-10-10 22:39:00 Jovani Langford [facility] N-TERMINAL PRO-BNP 2023-10-10 22:39:00 Jovani Langford [facility] Encounters Start Date/Time End Date/Time Encounter Type Admission Type Attending [facility] Care Facility Care Department Encounter ID Source 2024-01-22 10:30:00 2024-01-22 10:30:00 Outpatient [facility] [id number] [facility] 2024-01-04 00:00:00 2024-01-04 00:00:00 Outpatient EVY PETERSON [id number] Arlette Claire 2023-12-31 00:00:00 2023-12-31 00:00:00 Outpatient EVY PETERSON [id number] Arlette [facility] 2023-12-17 00:00:00 2023-12-17 00:00:00 Outpatient PREZASEVY [id number] Arlette Claire 2023-12-14 00:00:00 2023-12-14 00:00:00 Outpatient PREZAS, EVY MAGUIRE [id number] Arlette Claire 2023-12-11 00:00:00 2023-12-11 00:00:00 Outpatient PREZAS, EVY MAGUIRE [id number] Arlette Claire 2023-12-10 00:00:00 2023-12-10 00:00:00 Outpatient AMEZAGAELIN [id number] Arlette Maxwellsandra 2023-12-10 00:00:00 2023-12-10 00:00:00 Outpatient PREZAS, EVY MAGUIRE [id number] Arlette Claire 2023-12-10 00:00:00 2023-12-10 00:00:00 Outpatient AMEZAGA, ELIN MAGUIRE [id number] Arlette Maxwellsadnra 2023-12-07 11:00:00 2023-12-07 11:00:00 Outpatient LAB90 ARLETTE MAGUIRE [id number] Arlette Claire 2023-12-03 15:45:00 2023-12-03 15:45:00 Outpatient PREZAS, EVY MAGUIRE [id number] Arlette Claire 2023-10-21 00:00:00 2023-10-21 10:22:00 Letter (Out) Campaigns, Generic Provider Campaigns, Generic Provider [facility] ..[id number] [facility] 2023-10-13 00:00:00 2023-10-13 13:58:59 Telephone [facility] 1..840.114 [id number] [facility] 2023-10-10 16:48:00 2023-10-11 00:58:00 Emergency Jovani Langford [place] [facility] [id number] [facility] 2023-10-10 16:48:00 2023-10-11 00:58:00 Emergency X SETH WEEMS WAKILI [facility] ERT [id number] [facility] Results Test Description Test Time Test Comments Results Result Co mments Source [facility] [id number] 01:52:40Exam: CT Angiography Chest With Contrast, 10/10/2023 6:30 PM. Ordering Physician: JOVANI LANGFORD. History: Chest pain. Comparison: None. Technique: CT angiography chest was performed with intravenous contrast. 3DMIP images were rendered. ?CT was performed according to ALARA (As Low AsReasonably Achievable). Technical Quality: Examination is slightly suboptimal due to motion. Findings: Aorta/Great Vessels: There is no evidence of thoracic aortic dissection.Thoracic aorta is normal in caliber and demonstrates mild calcified plaque.Thoracic aorta is tortuous. Great vessels demonstrate plaque proximally. 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 Cardiomediastinal: Heart size is normal. There is coronary arterycalcification. There is no pericardial effusion. Distal esophageal wallthickening is noted. There is a small hiatal hernia. Pulmonary Arteries: There is no central pulmonary embolus. Centralpulmonary arteries arenormal in caliber. Lymph Nodes: There is no mediastinal, axillary, or hilar lymphadenopathy. Lungs/Pleura: Small left pleural effusion is noted, with left basilaratelectasis. Patchy, peribronchial groundglass opacities are demonstrated,with lower lobe predilection. Linear bibasilar opacities represent eitherscarring or subsegmental atelectasis. There is pulmonary vascularredistribution. There is no parenchymal consolidation or pulmonary mass.Central airways are patent. Upper Abdomen: Gallbladder is surgically absent. Osseous/Soft Tissues: There are degenerative changes of the spine. [facility] [id number] 23:49:49History: ?Chest pain ? Technique: XR CHEST 1 VW was obtained Prior exam: ?10/10/2023 Findings: Low lung volumes are seen. . There is mild central vascular congestion.There is minimal effusion and/or atelectasis of the left lung base. ?Heartis mildly enlarged. Tracheal air column is patent. ?Aorta isnormal insize. ?No pneumothorax. ?Included bones are intact.[facility] Notes Date/Time Note Provider Source 2023-10-13 13:51:59 Unable to leave message as phone will not accept calls. Alternate number also not able to leave message. [facility] 2023-10-11 00:56:07 Pt given printed and verbal discharge instructions regarding upper back pain, accelerated HTN, acute cyclitis, hiatal hernia, and esophageal disorder. Prescriptions provided. Discussed antibiotic therapy and to take until all completed unless adverse reaction occurs - if occurs, discontinue medication and follow up with pcp/seek medical attention. Pt verbalized understanding of instructions, pt awake alert oriented, resp reg unlabored, skin w/d, color appropriate for race, moves all ext well, pt encouraged to follow up with pcp. Advised to seek medical attention for new/prolonged/worsening of symptoms. No adverse reaction to meds given in ER noted upon discharge. PIV d'cd, dressing to site, catheter in tact. Awake, alert oriented, resp reg unlabored, skin w/d, pt leaving amb with steady gait, in no apparent distress. Leonila Dove RN [facility] 2023-10-10 22:00:00 BP checked in both arms as per Dr Weems's request. Right arm- 148/50 Left arm - 101/67 Dr Weems informed of results. Patient assisted OOB to [facility] to void 200 cc clear jimmy urine. Anastacio Amador RN [facility] 2023-10-10 17:41:53 Pt with noted pain with any movement or palp of left upper back Shavon Vaughan RN [facility] 2023-10-10 17:02:19 Patient reports pain in upper back by left shoulder blade for 2 days. Denies trauma. Had Tylenol for pain today with no relief. Shakir Price RN [facility]
[2024-01-13 19:14] LABS: Absolute Lymphocytes (CBC) 3.4 K/uL (0.7-4.9); Absolute Monocytes 0.9 K/uL (0.1-1.3); Absolute Neutrophil 8.1 K/uL (1.8-8.0); Basophils % 0.3 % (0-1.3); Eosinophils % 0.1 % (0-4.4); Hematocrit 37.6 % (36.0-45.0); Hemoglobin 12.1 g/dL (12.0-15.0); Lymphocytes % 27.5 % (15.3-44.8); MCH 28.7 pg (27.0-35.0); MCHC 32.2 g/dL (32.0-36.0); MCV 89.1 fL (80-100); MPV 9.8 fL (7.6-11.3); Monocytes % 7.1 % (3.3-12.3); Platelets 204 thou/uL (152-406); RBC Red Blood Cell Count 4.22 M/uL (3.86-4.86); Red Cell Distribution Width 16.6 % (12.1-15.2)
[2024-01-13] MEDS ORDERED: NA CHLORIDE 0.9% 0 ML ONE (19:15)
[2024-01-13] MEDS ORDERED: CEFTRIAXONE 1000 MG/VIAL ONE (19:15)
[2024-01-13] MEDS ORDERED: NA CHLORIDE 0.9% 3,000 ML ONE (19:15)
[2024-01-13] MEDS ORDERED: FAMOTIDINE 20 MG/2 ML VIAL IV ONE (19:15)
[2024-01-13 19:24] LABS: PT Prothrombin Time 12.3 SECONDS (9.4-12.5); PTT, Activated Partial Thromb 27.3 SECONDS (24.3-36.9); Protime INR 1.1
[2024-01-13 19:31] LABS: Albumin 2.5 g/dL (3.4-5.0); Albumin/Globulin Ratio 0.5 (1.1-1.8); Anion Gap 12.4 mEq/L (5.0-15.0); Bilirubin Direct 0.3 mg/dL (0-0.2); Bilirubin Indirect, Calculated 0.4 mg/dL (0.2-0.8); Bilirubin Total 0.7 mg/dL (0.2-1.0); Globulin 4.7 g/dL (2.3-3.5); Magnesium 1.8 mg/dL (1.6-2.4); Potassium 3.4 mEq/L (3.5-5.1); Protein, Total 7.2 g/dL (6.4-8.2)
[2024-01-13 19:34] LABS: SARS-CoV-2 Antigen CONTROL BLUE LINE VIS/BG OK; SARS-CoV-2 Antigen Rapid Res Negative (Negative)
[2024-01-13 19:35] LABS: Troponin High Sensitivity 4704.9 pg/mL (<58.9)
--- NOTE | 2024-01-13 19:46 | ER ---
Nurse's Notes [facility] Name: Mell Leo Age: 73 yrs Sex: Female : 1950 Arrival Date: 01/13/2024 Time: 18:03 Bed 20 Private MD: Diagnosis: Fever, unspecified;Influenza due to identified novel influenza A virus with other respiratory manifestations;Non ST elevation DC;Dehydration;Obesity, unspecified;Severe sepsis with septic shock;Fall on same level, unspecified;Unspecified injury of head, initial encounter-right sided contusion, temporal;Pneumonia due to other specified bacteria-left lower lobe consolidation, mild patchy right Presentation: 01/12 18:09 Chief complaint: EMS states: PICKED UP FROM HOME FOR WEAKNESS AND NOT ACTING NORMAL. db URINATING BED DUE TO WEAKNESS. PT NOT WANTING TO GET UP SINCE FALL THAT WAS AT 0430 TODAY. BG 87. SON WITH PATIENT. Coronavirus screen: Client denies travel out of the [place] in the last 14 days. At this time, the client does not indicate any symptoms associated with coronavirus-19. Ebola Screen: Patient negative for fever greater than or equal to 101.5 degrees Fahrenheit, and additional compatible Ebola Virus Disease symptoms Patient denies exposure to infectious person. Patient denies travel to an Ebola-affected area in the 21 days before illness onset. No symptoms or risks identified at this time. Initial Sepsis Screen: Does the patient meet any 2 criteria? No. Patient's initial sepsis screen is negative. Does the patient have a suspected source of infection? No. Patient's initial sepsis screen is negative. Risk Assessment: Do you want to hurt yourself or someone else? Patient reports no desire to harm self or others. Onset of symptoms was January 13, 2024 at 03:30. Care prior to arrival: Glucose check: 87. 18:09 Method Of Arrival: EMS: [facility] db 18:09 Acuity: ELIAS 2 db Triage Assessment: 18:07 General: Appears comfortable, Behavior is cooperative. Pain: Complains of pain in ALL db OVER BODY. Neuro: Neuro: Level of Consciousness is awake, alert, obeys commands. 18:12 General: Appears in no apparent distress. Behavior is. db Historical: - Allergies: 18:12 No Known Allergies; db - PMHx: 18:12 Arthritis; CAD; Hypertension; db - PSHx: 18:12 section; db - Immunization history:: Adult Immunizations unknown. - Infectious Disease History:: Denies. - Social history:: Smoking status: Patient denies any tobacco usage or history of. Screenin:11 [facility] ED Fall Risk Assessment (Adult) History of falling in the last 3 months, cp4 including since admission Yes- single mechanical fall (1 pt) Confusion or Disorientation Yes (5 pts) Intoxicated or Sedated No (0 pts) Impaired Gait Yes (1 pt) Mobility Assist Device Used Yes (1 pt) Altered Elimination No (0 pt) Score/Fall Risk Level 3 or more points = High Risk Oriented to surroundings, Maintained a safe environment, Assessed \T\ reinforced patient's understanding of fall precautions, Hourly rounding (assess needs \T\ fall precautionary measures) done. Abuse screen: Denies threats or abuse. Nutritional screening: No deficits noted. Tuberculosis screening: No symptoms or risk factors identified. Assessment: 18:21 Reassessment:. db 19:38 Reassessment: SEE TRIAGE FOR INITIAL ASSESSMENT. db Vital Signs: 18:16 BP 99 / 72; Pulse 96; Resp 23; Temp 101; Pulse Ox 92% on R/A; Weight 94.35 kg (M); db 19:00 BP 99 / 72; Pulse 102; Resp 20; Pulse Ox 95% on R/A; cp4 20:00 BP 160 / 80; Pulse 99; Resp 18; Pulse Ox 93% on R/A; cp4 21:00 BP 138 / 58; Pulse 96; Resp 18; Pulse Ox 95% on R/A; cp4 22:20 BP 126 / 55; Pulse 95; Resp 18; Temp 99.1; Pulse Ox 95% ; cp4 18:16 PLACED ON 2L NC db ED Course: 18:07 Patient arrived in ED. db 18:12 Triage completed. db 18:12 Aguila Vu MD is Attending Physician. tono 18:12 Arm band placed on Patient placed in an exam room. db 18:23 Kacey Hasnen, PAWEL is Primary Nurse. db 18:35 Missed attempt(s): 22 gauge in right antecubital area. Bleeding controlled, band aid db applied, catheter tip intact. 18:45 Patient has correct armband on for positive identification. Bed in low position. Call db light in reach. Side rails up X2. Pillow given. 18:48 Missed attempt(s): 22 gauge in left antecubital area. Bleeding controlled, band aid ph applied, catheter tip intact. 18:50 First set of blood cultures drawn by me. Missed attempt(s): 22 gauge in right ph antecubital area. Bleeding controlled, band aid applied, catheter tip intact. 18:53 Flu Sent. db 18:53 SARS RAPID Sent. db 19:00 Initial lab(s) drawn, by me, sent to lab. Second set of blood cultures drawn by me. ph 19:06 Inserted saline lock: 22 gauge in left antecubital area, using aseptic technique. Blood ph collected. Flushed with 10 mL NS. 19:08 XRAY Chest (1 view) In Process Unspecified. EDMS 19:30 Inserted saline lock: 18 gauge in right EJ, using aseptic technique. Flushed with 10 mL db NS BY DR. VU. 19:42 Diane Rivera is Primary Nurse. cp4 20:14 CT Chest Abdomen Pelvis W/O Contrast In Process Unspecified. EDMS 20:14 CT Head C Spine In Process Unspecified. EDMS 20:28 Zapien cath inserted, using sterile technique, 16 Fr., by ED staff, balloon inflated, to ty gravity drainage. 20:42 aguila vu initiated transfer [facility] \T\ 1956. Pt was accepted to [facility] - 8D- [id number]. Number for nurse to nurse report [phone]. [facility] to transfer pt once nurse to nurse is complete. 22:11 Provided Education on: transfer. cp4 22:13 No provider procedures requiring assistance completed. Patient transferred, IV remains cp4 in place. Administered Medications: 19:00 Drug: NS 0.9% IV (30 ml/kg) 30 ml/kg IV at bolus once; Sepsis Protocol; to be given as db a bolus over 90 minutes Route: IV; Rate: bolus; Site: left forearm; 22:14 Follow up: Response: No adverse reaction; IV Status: Completed infusion cp4 19:05 Drug: Famotidine IVP 20 mg IVP once; dilute with 10 mL 0.9% NaCl; give over 2 minutes db Route: IVP; Site: left forearm; 22:16 Follow up: Response: No adverse reaction cp4 19:19 Not Given (Duplicate Order): rocephin1 grams IV at per protocol once; Given slow IV tono push per pharmacy instructions 19:19 CANCELLED (Duplicate Order): [id number] mg PO once tono 20:35 Drug: Meropenem IV 1 grams IV at per protocol once; (mix in NS 100 mL) Route: IV; Rate: cp4 per protocol; Site: left antecubital; 21:00 Follow up: Response: No adverse reaction; IV Status: Completed infusion cp4 20:35 Drug: Acetaminophen NV Suppository 1300 mg NV once Route: NV; cp4 22:15 Follow up: Response: No adverse reaction cp4 20:43 Drug: Oseltamivir PO 75 mg PO once Route: PO; cp4 22:16 Follow up: Response: No adverse reaction cp4 20:43 Drug: Aspirin PO Chewable Tablet 81 mg PO once Route: PO; cp4 22:16 Follow up: Response: No adverse reaction cp4 20:43 Drug: Enoxaparin Sub-Q 100 mg Sub-Q once Route: Sub-Q; Site: abdomen; cp4 22:16 Follow up: Response: No adverse reaction cp4 20:44 Drug: vancoMYCIN IVPB 1 grams IVPB once over 2 hrs Route: IVPB; Infused Over: 2 hrs; cp4 Site: right jugular; 22:15 Follow up: Response: No adverse reaction; IV Status: Completed infusion cp4 Medication: 22:13 VIS not applicable for this client. cp4 Outcome: 19:45 ER care complete, transfer ordered by . [facility] 22:13 Transferred by ground EMS to [facility], Transfer form cp4 completed. X-rays sent w/ patient. 22:13 Condition: stable 22:13 Instructed on the need for transfer, 22:25 Patient left the ED. [email or web address] Addendum: 01/16/2024 13:12 Addendum: Culture Results: Positive urine culture. Phone call Attempt #1 Report faxed h b to [facility]. Signatures: Dispatcher [employer] EDMS Aguila Vu MD MD cha Hall, Patricia RN RN Betsy Wagner RN RN hb Bryson, James, RN RN jb4 Kacey Hansen RN RN db Potter, Christina cp4 Arlette Alcocer [facility] Yandell, Shahid ty Corrections: (The following items were deleted from the chart) 01/12 19:07 18:50 Missed attempt(s): 22 gauge in left antecubital area. Bleeding controlled, band ph aid applied, catheter tip intact. ph 19:38 18:21 Reassessment: gauri db 20:44 20:44 Meropenem IV 1 grams IV at per protocol in right antecubital cp4 cp4
--- NOTE | 2024-01-13 19:46 | EDPHYS ---
Physician Documentation [facility] Name: Mell Leo Age: 73 yrs Sex: Female : 1950 Arrival Date: 01/13/2024 Time: 18:03 Bed 20 Private MD: ED Physician Aguila Donaldson HPI: 01/12 19:29 This 73 yrs old Female presents to ER via EMS with complaints of Altered tono Mental Status, General Weakness. 19:29 The patient presents with confusion, decreased mental status, trouble concentrating. tono Onset: The symptoms/episode began/occurred 1 day(s) ago. 19:29 Possible causes: CVA or TIA. Associated signs and symptoms: Pertinent positives: tono confusion, lightheadedness, shortness of breath, weakness. Current symptoms: In the emergency department the patient's symptoms are unchanged from the initial presentation. Patient's baseline: Neuro: alert and fully oriented. The patient has experienced similar episodes in the past, several times. Historical: - Allergies: 18:12 No Known Allergies; db - PMHx: 18:12 Arthritis; CAD; Hypertension; db - PSHx: 18:12 section; db - Immunization history:: Adult Immunizations unknown. - Infectious Disease History:: Denies. - Social history:: Smoking status: Patient denies any tobacco usage or history of. ROS: 19:30 Eyes: Negative for injury, pain, redness, and discharge, ENT: Negative for injury, tono pain, and discharge, Neck: Negative for injury, pain, and swelling, Cardiovascular: Negative for chest pain, palpitations, and edema, Abdomen/GI: Negative for abdominal pain, nausea, vomiting, diarrhea, and constipation, Back: Negative for injury and pain, : Negative for injury, bleeding, discharge, and swelling, MS/Extremity: Negative for injury and deformity, Skin: Negative for injury, rash, and discoloration, Psych: Negative for depression, anxiety, suicide ideation, homicidal ideation, and hallucinations, Allergy/Immunology: Negative for hives, rash, and allergies, Endocrine: Negative for neck swelling, polydipsia, polyuria, polyphagia, and marked weight changes, Hematologic/Lymphatic: Negative for swollen nodes, abnormal bleeding, and unusual bruising, 19:30 Constitutional: Positive for body aches, chills, fatigue, fever, malaise, 19:30 ENT: Positive for difficulty swallowing, dry mm, 19:30 Cardiovascular: Positive for palpitations, 19:30 Respiratory: Positive for cough, shortness of breath, at rest. 19:30 Abdomen/GI: Positive for nausea, abdominal distension, 19:30 Skin: Positive for warm to touch, 19:30 Neuro: Positive for altered mental status, dizziness, headache, near syncope, weakness, Exam: 19:30 Head/Face: Normocephalic, atraumatic. Eyes: Pupils equal round and reactive to light, tono extra-ocular motions intact. Lids and lashes normal. Conjunctiva and sclera are non-icteric and not injected. Cornea within normal limits. Periorbital areas with no swelling, redness, or edema. ENT: Nares patent. No nasal discharge, no septal abnormalities noted. Tympanic membranes are normal and external auditory canals are clear. Oropharynx with no redness, swelling, or masses, exudates, or evidence of obstruction, uvula midline. Mucous membranes moist. Neck: Trachea midline, no thyromegaly or masses palpated, and no cervical lymphadenopathy. Supple, full range of motion without nuchal rigidity, or vertebral point tenderness. No Meningismus. Chest/axilla: Normal chest wall appearance and motion. Nontender with no deformity. No lesions are appreciated. Abdomen/GI: Soft, non-tender, with normal bowel sounds. No distension or tympany. No guarding or rebound. No evidence of tenderness throughout. Back: No spinal tenderness. No costovertebral tenderness. Full range of motion. Female : Normal external genitalia. Skin: Warm, dry with normal turgor. Normal color with no rashes, no lesions, and no evidence of cellulitis. MS/ Extremity: Pulses equal, no cyanosis. Neurovascular intact. Full, normal range of motion., bilateral aka Neuro: Awake and alert, GCS 15, oriented to person, place, time, and situation. Cranial nerves II-XII grossly intact. Motor strength 5/5 in all extremities. Sensory grossly intact. Cerebellar exam normal. Normal gait. Psych: Awake, alert, with orientation to person, place and time. Behavior, mood, and affect are within normal limits. 19:30 Constitutional: The patient appears febrile, lethargic, obese, obviously ill, uncomfortable, unkempt, 19:47 ECG was reviewed by the Attending Physician. [facility] Vital Signs: 18:16 BP 99 / 72; Pulse 96; Resp 23; Temp 101; Pulse Ox 92% on R/A; Weight 94.35 kg (M); db 19:00 BP 99 / 72; Pulse 102; Resp 20; Pulse Ox 95% on R/A; cp4 20:00 BP 160 / 80; Pulse 99; Resp 18; Pulse Ox 93% on R/A; cp4 21:00 BP 138 / 58; Pulse 96; Resp 18; Pulse Ox 95% on R/A; cp4 22:20 BP 126 / 55; Pulse 95; Resp 18; Temp 99.1; Pulse Ox 95% ; cp4 18:16 PLACED ON 2L NC db MDM: 18:12 Medical Screening Exam initiated tono 19:36 Differential diagnosis: viral Infection, bacterial infection, URI, bronchitis, tono pneumonia UTI, gastroenteritis, meningitis. Differential Diagnosis altered mental status, sepsis, flu, Obstructed Airway Bronchitis Influenza Upper Respiratory Infection Sinusitis Pharyngitis Asthma Exacerbation Viral Syndrome Pneumonia Tracheal Injury. Differential Diagnosis: CVA, electrolyte abnormality, hypoglycemia, intracranial bleed, meningitis, pneumonia, seizure, sepsis, TIA, UTI, volume depletion. Data reviewed: vital signs, nurses notes, EMS record, lab test result(s), EKG, radiologic studies, CT scan, plain films. Consideration of Admission/Observation Escalation of care including admission/observation considered. I considered the following discharge prescriptions or medication management in the emergency department Medications were administered in the Emergency Department. See MAR. Independent interpretation of the following test(s) in the Emergency Department EKG: See my EKG interpretation above. Test considered but Not performed: Ultrasound no abd usg. Historians other than the Patient: EMS: ems well informed. Care significantly affected by the following chronic conditions: Hypertension, Obesity. Post IV fluid administration reassessment for Sepsis: Client prescribed 30 mL/kg IVF. Sepsis focused reassessment complete. Counseling: I had a detailed discussion with the patient and/or guardian regarding the historical points, exam findings, and any diagnostic results supporting the discharge/admit diagnosis, lab results, radiology results. 01/12 18:16 Order name: Basic Metabolic Panel; Complete Time: 19:39 [facility] 01/12 18:16 Order name: CBC with Diff; Complete Time: 19:39 [facility] 01/12 18:16 Order name: LFT's; Complete Time: 19:39 [facility] 12/ 18:16 Order name: Magnesium; Complete Time: 19:39 [facility] / 18:16 Order name: NT PRO-BNP; Complete Time: 19:39 [facility] / 18:16 Order name: PT-INR; Complete Time: 19:39 [facility] 01/12 18:16 Order name: Troponin HS; Complete Time: 19:39 [facility] 01/12 18:16 Order name: Ptt, Activated; Complete Time: 19:39 [facility] 01/12 18:16 Order name: Urinalysis w/ reflexes [facility] 01/12 18:16 Order name: SARS RAPID; Complete Time: 19:39 [facility] 01/12 18:16 Order name: Flu; Complete Time: 19:39 [facility] 01/12 18:16 Order name: Lactate w/ 2H reflex if indic.; Complete Time: 19:39 [facility] 01/12 18:16 Order name: Blood Culture Adult (2) [facility] 01/12 18:16 Order name: Strep [facility] 01/12 19:36 Order name: Throat Culture [facility] 01/12 21:03 Order name: Urine Culture [facility] 01/12 21:35 Order name: Ghost Lactate-NO COLLECT Timer [facility] 01/12 18:16 Order name: XRAY Chest (1 view) [facility] 01/12 18:16 Order name: CT Chest Abdomen Pelvis W/O Contrast [facility] 01/12 19:17 Order name: CT Head C Spine [facility] 01/12 18:16 Order name: Cardiac monitoring; Complete Time: 18:54 [facility] 01/12 18:16 Order name: EKG - Nurse/Tech; Complete Time: 18:54 [facility] 01/12 18:16 Order name: IV Saline Lock; Complete Time: 20:44 [facility] 01/12 18:16 Order name: Labs collected and sent; Complete Time: 20:43 [facility] 01/12 18:16 Order name: O2 Per Protocol; Complete Time: 20:43 [facility] 01/12 18:16 Order name: O2 Sat Monitoring; Complete Time: 20:43 [facility] 01/12 18:44 Order name: IV Saline Lock - Large Bore; Complete Time: 19:42 [facility] 01/12 19:18 Order name: Zapien; Complete Time: 20:29 [facility] 01/12 19:28 Order name: Misc. Order: right ej; Complete Time: 19:42 tono EC:47 Rate is 98 beats/min. Rhythm is regular. QRS Lyons is Normal. CO interval is normal. QRS tono interval is normal. QT interval is normal. No Q waves. T waves are Normal. No ST changes noted. Clinical impression: NSR w/ Non-specific ST/T Changes and No evidence of ischemia. Interpreted by me. Reviewed by me. Administered Medications: 19:00 Drug: NS 0.9% IV (30 ml/kg) 30 ml/kg IV at bolus once; Sepsis Protocol; to be given as db a bolus over 90 minutes Route: IV; Rate: bolus; Site: left forearm; 22:14 Follow up: Response: No adverse reaction; IV Status: Completed infusion cp4 19:05 Drug: Famotidine IVP 20 mg IVP once; dilute with 10 mL 0.9% NaCl; give over 2 minutes db Route: IVP; Site: left forearm; 22:16 Follow up: Response: No adverse reaction cp4 19:19 Not Given (Duplicate Order): [email or web address] grams IV at per protocol once; Given slow IV tono push per pharmacy instructions 19:19 CANCELLED (Duplicate Order): [id number] mg PO once tono 20:35 Drug: Meropenem IV 1 grams IV at per protocol once; (mix in NS 100 mL) Route: IV; Rate: cp4 per protocol; Site: left antecubital; 21:00 Follow up: Response: No adverse reaction; IV Status: Completed infusion cp4 20:35 Drug: Acetaminophen CO Suppository 1300 mg CO once Route: CO; cp4 22:15 Follow up: Response: No adverse reaction cp4 20:43 Drug: Oseltamivir PO 75 mg PO once Route: PO; cp4 22:16 Follow up: Response: No adverse reaction cp4 20:43 Drug: Aspirin PO Chewable Tablet 81 mg PO once Route: PO; cp4 22:16 Follow up: Response: No adverse reaction cp4 20:43 Drug: Enoxaparin Sub-Q 100 mg Sub-Q once Route: Sub-Q; Site: abdomen; cp4 22:16 Follow up: Response: No adverse reaction cp4 20:44 Drug: vancoMYCIN IVPB 1 grams IVPB once over 2 hrs Route: IVPB; Infused Over: 2 hrs; cp4 Site: right jugular; 22:15 Follow up: Response: No adverse reaction; IV Status: Completed infusion cp4 Disposition Summary: 01/13/24 19:45 Transfer Ordered Notes: Transfer Location: [facility] tono Reason: Higher level of care tono Condition: Serious tono Problem: new tono Symptoms: have improved tono Accepting Physician: to [facility](01/13/24 22:25) [email or web address] Diagnosis - Fever, unspecified tono - Influenza due to identified novel influenza A virus with other respiratory tono manifestations - Non ST elevation [place] tono - Dehydration tono - Obesity, unspecified tono - Severe sepsis with septic shock tono - Fall on same level, unspecified tono - Unspecified injury of head, initial encounter - right sided contusion, temporal tono - Pneumonia due to other specified bacteria - left lower lobe consolidation, mild tono patchy right Forms: - Medication Reconciliation Form tono - SBAR form tono Signatures: Dispatcher [employer] EDMS Agulia Donaldson MD MD cha Bryson, James RN RN jb4 Kacey Hansen RN RN db Potter, Christina cp4 Corrections: (The following items were deleted from the chart) 18:17 18:17 BASIC METABOLIC PANEL+C.LAB.BRZ ordered. EDMS EDMS 18:17 18:17 CBC+H.LAB.BRZ ordered. EDMS EDMS 18:17 18:17 HEPATIC FUNCTION+C.LAB.BRZ ordered. EDMS EDMS 18:17 18:17 MAGNESIUM+C.LAB.BRZ ordered. EDMS EDMS 18:17 18:17 PROBNP+C.LAB.BRZ ordered. EDMS EDMS 18:17 18:17 PROTIME (+INR)+COAG.LAB.BRZ ordered. EDMS EDMS 18:17 18:17 Troponin High Sensitivity+C.LAB.BRZ ordered. EDMS EDMS 18:17 18:17 PTT, ACTIVATED+COAG.LAB.BRZ ordered. EDMS EDMS 18:17 18:17 Urinalysis+U.LAB.BRZ ordered. EDMS EDMS 18:17 18:17 SARS-COV-2 Antigen Rapid+I.LAB.BRZ ordered. EDMS EDMS 18:17 18:17 Influenza Screen (A \T\ B)+BA.LAB.BRZ ordered. EDMS EDMS 18:17 18:17 LACTATE+C.LAB.BRZ ordered. EDMS EDMS 18:17 18:17 BLOOD CULTURE*+BA.LAB.BRZ ordered. EDMS EDMS 18:17 18:17 Group A Streptococcus Rapid Sc+BA.LAB.BRZ ordered. EDMS EDMS 18:17 18:17 Head Brain Wo Cont+CT.RAD.BRZ ordered. EDMS EDMS 18:17 18:17 Chest Abdomen Pelvis Wo Con+CT.RAD.BRZ ordered. EDMS EDMS 19:19 19:14 Acetaminophen PO 1000 mg PO once ordered. [facility] tono 20:37 19:45 to [facility] tono 22:25 20:37 to [facility] jb4
[2024-01-13] MEDS ORDERED: ACETAMINOPHEN 325 MG/SUPP PR ONE (20:18)
[2024-01-13] MEDS ORDERED: ASPIRIN 81 MG CHEWABLE TABLET ONE (20:24)
[2024-01-13] MEDS ORDERED: VANCOMYCIN 1 GM/VIAL ONE (20:24)
[2024-01-13] MEDS ORDERED: ENOXAPARIN 100 MG/ML SYR SQ ONE (20:24)
[2024-01-13] MEDS ORDERED: OSELTAMIVIR 75 MG CAP PO ONE (20:25)
[2024-01-13] MEDS ORDERED: NA CHLORIDE 0.9% 100 ML ONE (20:25)
[2024-01-13] MEDS ORDERED: NA CHLORIDE 0.9% 250 ML ONE (20:25)
[2024-01-13] MEDS ORDERED: Meropenem 1000 MG/VIAL IV ONE (20:25)
--- NOTE | 2024-01-13 20:29 | RAD REPORT ---
EXAMINATION: CT HEAD WITHOUT CONTRAST CT CERVICAL SPINE WITHOUT CONTRAST CLINICAL INDICATION: Head and neck injury status post fall. Head and neck pain TECHNIQUE: Axial CT images from the skull base to the vertex without intravenous contrast. Axial CT i mages through the cervical spine were obtained without intravenous contrast. Sagittal and coronal reformatted images were created from the data set. Coronal and sagittal reformatted images were creat ed from the data set. One or more of the following dose reduction techniques were used: Automated exposure control, adjustment of the mA and/or kV according to patient size, and/or iterative reconstr uction. Unless otherwise specified, incidental findings do not require dedicated imaging follow-up. [id number]. Comparison: none FINDINGS: An intracranial bleed is not seen. Ventricles are normal in caliber. No significant hypodensity within the brain No extra-axial fluid collection. No fluid within the sinuses/mastoids No fracture or dislocation is seen involving the cervical spine. IMPRESSION: No acute intracranial abnormality noted A cervical fracture is not seen. If the patient continues to have symptoms to suggest acute [employer]/spinal pathology then MRI would be rec ommended
--- NOTE | 2024-01-13 20:38 | RAD REPORT ---
EXAM: CT CHEST, ABDOMEN AND PELVIS WITHOUT CONTRAST CLINICAL INDICATION: Chest and abdominal pain TECHNIQUE: CT chest, abdomen and pelvis was performed, without IV contrast, as per department protoco l. Axial, sagittal and coronal reconstructions were obtained. One or more of the following dose reduction techniques were used: Automated exposure control, adjustment of the mA and/or kV according to the patient size, and/or iterative reconstruction. Unless otherwise specified, incidental findings do not require dedicated imaging follow-up. The lack of IV and oral contrast limits evaluation of the mediastinum, mindy, vessels, organs and edwina l. COMPARISON: None FINDINGS: Mild patchy opacities right lung. Subcentimeter left lower lobe consolidation. No mediastinal or hilar lymphadenopathy seen. No pleural effusion. No pericardial effusion. Liver, spleen, pancreas, adrenals kidneys and bladder appear grossly normal There is no evidence of diverticulitis No adnexal mass IMPRESSION: Left lower lobe consolidation probably pneumonia. Mild patchy right lung opacities probably additional infection.
--- NOTE | 2024-01-13 20:46 | RAD REPORT ---
Procedure: Chest Single View HISTORY: Cough COMPARISON: 2020 FINDINGS: Mild left lower lobe and mild right lung opacities No significant pleural effusion noted. The heart is mildly enlarged. IMPRESSION: Mild bilateral pulmonary opacities probably pneumonia
[2024-01-13 20:58] LABS: Specific Gravity 1.013 (1.005-1.030); Sqamous Epithelial <5 /HPF (None Seen); Urine Bacteria <20 /HPF (<20); Urine Bilirubin NEGATIVE (Negative); Urine Blood 1+ (Negative); Urine Clarity Extremely Turbid (Clear); Urine Color Light-Yellow (Yellow); Urine Crystals Unidentified Few /HPF (None Seen); Urine Culture Reflex Order REFLEXED; Urine Glucose NEGATIVE (Negative); Urine Ketones NEGATIVE (Negative); Urine Microscopic Reflex YN ORDER UMIC; Urine Mucus 1+ /HPF (None Seen); Urine Nitrite NEGATIVE (Negative); Urine Protein TRACE (Negative); Urine RBC <5 /HPF (None Seen); Urine Urobilinogen Normal (Normal); Urine WBC >50 /HPF (<5); Urine WBC Clump Rare /HPF (None Seen); Urine Yeast (Budding) Trace /HPF (None Seen); Urine pH 5.5 (5.0-7.0)
[2024-01-14 06:00] VITALS: O2SAT 95
[2024-01-14 06:02] VITALS: BP 126/55; TEMP 99.1
== END 2024-01-13 22:25 | disposition short-term general hospital (02) ==
LOC: ER 18:03
DX: J10.1 Influenza due to other identified influenza virus with other respiratory manifestations (principal); I21.4 Non-ST elevation (NSTEMI) myocardial infarction; J15.8 Pneumonia due to other specified bacteria; R65.21 Severe sepsis with septic shock; E86.0 Dehydration; S00.83XA Contusion of other part of head, initial encounter; W18.30XA Fall on same level, unspecified, initial encounter; E66.9 Obesity, unspecified; I10 Essential (primary) hypertension; I25.10 Atherosclerotic heart disease of native coronary artery without angina pectoris; Z11.52 Encounter for screening for COVID-19
CPT/HCPCS: 87040 ×2; 87070; 87088; 85025; 81001; 87086; 80048; 36415; 83735; 85610; 80076; 87081; 83605; 85730; 87077; 87186; 84484; 83880; 87804 ×2; 70450; 71250; 72125; 74176; 71045; 51702; 96372; 99285; 87811; J1650; J2185; J7050; J7030; J0696